=== PATIENT | male | born 1960 | race Caucasian/White ===

== ENCOUNTER 2016-07-31 04:54 | Observation (INO) | payer BC, OTHER ==
[2016-07-31] MEDS ORDERED: SODIUM CHLORIDE 0.9% 1,000 ML IV STA (04:59)
[2016-07-31] MEDS ORDERED: ALBUTEROL NEB (CONC) 2.5 MG/0.5 ML INHALATION STA ×2 (05:07→05:12)
[2016-07-31] MEDS ORDERED: IPRATROPIUM 0.5 MG/2.5 ML NEBU INHALATION STA (05:07)
[2016-07-31] MEDS ORDERED: methylPREDNISolone SOD SUCCI 125 MG/2 ML VIAL IV STA (05:09)
--- NOTE | 2016-07-31 05:09 | ED ---
General Adult HPI - General Chief complaint: Shortness of Breath Stated complaint: SOB Time Seen by Provider: 07/31/16 04:59 Source: patient, RN notes reviewed, old records reviewed Mode of arrival: ambulatory Limitations: no limitations - History of Present Illness Initial comments: This is a 36-year-old male here for evaluation of severe shortness of breath, 2 days of worsening shortness breath cough and congestion. Patient does have are from asthma COPD and continued to smoke. No known fevers, no chest pain, increasing cough increasing congestion. Again patient had a recent osculation allows last year for similar symptoms, COPD. Patient is not followed along doctor, takes no home medications. - Related Data Home Medications Medication Instructions Recorded Confirmed No Known Home Medications [No 07/31/16 07/31/16 Known Home Medications] Allergies Allergy/AdvReac Type Severity Reaction Status Date / Time No Known Allergies Allergy Verified 04/04/14 20:46 Review of Systems ROS Statement: Those systems with pertinent positive or pertinent negative responses have been documented in the HPI. ROS Other: All systems not noted in ROS Statement are negative. Past Medical History Additional Past Medical History / Comment(s): gout History of Any Multi-Drug Resistant Organisms: None Reported Past Surgical History: Orthopedic Surgery Additional Past Surgical History / Comment(s): left hand tendon surgery Past Anesthesia/Blood Transfusion Reactions: No Reported Reaction Past Psychological History: No Psychological Hx Reported Smoking Status: Heavy tobacco smoker Past Alcohol Use History: Unable to Obtain, Daily Past Drug Use History: Marijuana General Exam Limitations: no limitations General appearance: alert, in no apparent distress, anxious Head exam: Present: atraumatic, normocephalic, normal inspection Eye exam: Present: normal appearance, PERRL, EOMI. Absent: scleral icterus, conjunctival injection, periorbital swelling ENT exam: Present: normal exam, mucous membranes moist Neck exam: Present: normal inspection. Absent: tenderness, meningismus, lymphadenopathy Respiratory exam: Present: normal lung sounds bilaterally, respiratory distress , wheezes, accessory muscle use, prolonged expiratory. Absent: rales, rhonchi, stridor Cardiovascular Exam: Present: regular rate, normal rhythm, normal heart sounds. Absent: systolic murmur, diastolic murmur, rubs, gallop, clicks GI/Abdominal exam: Present: soft, normal bowel sounds. Absent: distended, tenderness, guarding, rebound, rigid Extremities exam: Present: normal inspection, full ROM, normal capillary refill. Absent: tenderness, pedal edema, joint swelling, calf tenderness Back exam: Present: normal inspection Neurological exam: Present: alert, oriented X3, CN II-XII intact Psychiatric exam: Present: normal affect, normal mood Skin exam: Present: warm, dry, intact, normal color. Absent: rash Course Vital Signs 07/31/16 07/31/16 07/31/16 04:58 05:17 05:28 Temperature 97.2 F L Pulse Rate 98 90 96 Respiratory 22 Rate Blood Pressure 138/71 O2 Sat by Pulse 97 Oximetry 07/31/16 06:58 Temperature Pulse Rate 94 Respiratory 18 Rate Blood Pressure 135/73 O2 Sat by Pulse 93 L Oximetry - Reevaluation(s) Reevaluation #1: 07/31/16 05:08 Patient is not on home O2 and is profoundly hypoxic on room air oxygen and 83% after initial breathing treatment Reevaluation #2: 07/31/16 07:04 Patient still with some clear shortness of breath Medical Decision Making - Medical Decision Making 56 male to the ER for reevaluation cough congestion shortness of breath, not on home O2 and oxygen 8% on room air. Patient does continue to smoke, will admit for IV hydration, steroids and breathing treatments. Monitoring of pulse ox and rest for a status - Lab Data Result diagrams: 07/31/16 05:00 07/31/16 05:00 Lab Results 07/31/16 07/31/16 07/31/16 Range/Units 05:00 05:00 05:00 WBC 13.2 H (3.8-10.6) k/uL RBC 4.67 (4.30-5.90) m/uL Hgb 14.4 (13.0-17.5) gm/dL Hct 43.9 (39.0-53.0) % MCV 94.0 (80.0-100.0) fL MCH 30.9 (25.0-35.0) pg MCHC 32.9 (31.0-37.0) g/dL RDW 12.7 (11.5-15.5) % Plt Count 485 H (150-450) k/uL Neutrophils % 70 % Lymphocytes % 18 % Monocytes % 7 % Eosinophils % 1 % Basophils % 0 % Neutrophils # 9.2 H (1.3-7.7) k/uL Lymphocytes # 2.4 (1.0-4.8) k/uL Monocytes # 1.0 (0-1.0) k/uL Eosinophils # 0.1 (0-0.7) k/uL Basophils # 0.1 (0-0.2) k/uL PT (9.0-12.0) sec INR (<1.1) APTT (22.0-30.0) sec Sodium 142 (137-145) mmol/L Potassium 4.3 (3.5-5.1) mmol/L Chloride 98 (98-107) mmol/L Carbon Dioxide 32 H (22-30) mmol/L Anion Gap 12 mmol/L BUN 7 L (9-20) mg/dL Creatinine 0.66 (0.66-1.25) mg/dL Est GFR (MDRD) Af Amer >60 (>60 ml/min/1.73 sqM) Est GFR (MDRD) Non-Af >60 (>60 ml/min/1.73 sqM) Glucose 113 H (74-99) mg/dL Calcium 9.1 (8.4-10.2) mg/dL Magnesium 2.0 (1.6-2.3) mg/dL Total Bilirubin 0.7 (0.2-1.3) mg/dL AST 19 (17-59) U/L ALT 29 (21-72) U/L Alkaline Phosphatase 52 (38-126) U/L Total Creatine Kinase 32 L (55-170) U/L CK-MB (CK-2) <0.2 (0.0-2.4) ng/mL CK-MB (CK-2) Rel Index Troponin I <0.012 (0.000-0.034) ng/mL NT-Pro-B Natriuret Pep pg/mL Total Protein 7.2 (6.3-8.2) g/dL Albumin 3.9 (3.5-5.0) g/dL 07/31/16 07/31/16 Range/Units 05:00 05:00 WBC (3.8-10.6) k/uL RBC (4.30-5.90) m/uL Hgb (13.0-17.5) gm/dL Hct (39.0-53.0) % MCV (80.0-100.0) fL MCH (25.0-35.0) pg MCHC (31.0-37.0) g/dL RDW (11.5-15.5) % Plt Count (150-450) k/uL Neutrophils % % Lymphocytes % % Monocytes % % Eosinophils % % Basophils % % Neutrophils # (1.3-7.7) k/uL Lymphocytes # (1.0-4.8) k/uL Monocytes # (0-1.0) k/uL Eosinophils # (0-0.7) k/uL Basophils # (0-0.2) k/uL PT 11.7 (9.0-12.0) sec INR 1.2 (<1.1) APTT 27.2 (22.0-30.0) sec Sodium (137-145) mmol/L Potassium (3.5-5.1) mmol/L Chloride (98-107) mmol/L Carbon Dioxide (22-30) mmol/L Anion Gap mmol/L BUN (9-20) mg/dL Creatinine (0.66-1.25) mg/dL Est GFR (MDRD) Af Amer (>60 ml/min/1.73 sqM) Est GFR (MDRD) Non-Af (>60 ml/min/1.73 sqM) Glucose (74-99) mg/dL Calcium (8.4-10.2) mg/dL Magnesium (1.6-2.3) mg/dL Total Bilirubin (0.2-1.3) mg/dL AST (17-59) U/L ALT (21-72) U/L Alkaline Phosphatase (38-126) U/L Total Creatine Kinase (55-170) U/L CK-MB (CK-2) (0.0-2.4) ng/mL CK-MB (CK-2) Rel Index Troponin I (0.000-0.034) ng/mL NT-Pro-B Natriuret Pep 48 pg/mL Total Protein (6.3-8.2) g/dL Albumin (3.5-5.0) g/dL - Radiology Data Radiology results: report reviewed, image reviewed Critical Care Time Critical Care Time: Yes Total Critical Care Time: 31 Disposition Clinical Impression: Acute exacerbation of chronic obstructive airways disease, Hypoxemia, Respiratory distress, COPD exacerbation Disposition: ADMITTED IP TO THIS HOSP Condition: Serious Referrals: Frank Quarles MD [Primary Care Provider] - 1-2 days
[2016-07-31] MEDS ORDERED: IPRATROPIUM-ALBUTEROL 3 ML NEB INHALATION STA (05:12)
[2016-07-31 05:34] LABS: Basophils # (A) 0.1 k/uL (0-0.2); Basophils % (A) 0 %; CH 30.8; CHCM 32.9; Eosinophils # (A) 0.1 k/uL (0-0.7); Eosinophils % (A) 1 %; HCT 43.9 % (39.0-53.0); HGB 14.4 gm/dL (13.0-17.5); Luc # (Auto) 0.48; Luc % (Auto) 4; Lymphocytes # (A) 2.4 k/uL (1.0-4.8); Lymphocytes % (A) 18 %; MCH 30.9 pg (25.0-35.0); MCHC 32.9 g/dL (31.0-37.0); Mean Platelet Volume 8.1; Monocytes % (A) 7 %; Neutrophils # (A) 9.2 k/uL (1.3-7.7); Neutrophils % (A) 70 %; RBC 4.67 m/uL (4.30-5.90); RDW 12.7 % (11.5-15.5); WBC 13.2 k/uL (3.8-10.6); WBC (Perox) 12.76
[2016-07-31 05:45] LABS: INR 1.2 (<1.1); Partial Thromboplastin Time 27.2 sec (22.0-30.0); Prothrombin Time 11.7 sec (9.0-12.0)
[2016-07-31 05:47] LABS: ALT 29 U/L (21-72); AST 19 U/L (17-59); Alkaline Phosphatase 52 U/L (38-126); Anion Gap 12 mmol/L; Blood Urea Nitrogen 7 mg/dL (9-20); Calcium 9.1 mg/dL (8.4-10.2); Carbon Dioxide 32 mmol/L (22-30); Chloride 98 mmol/L (98-107); Glucose 113 mg/dL (74-99); Non-African American GFR(MDRD) >60 (>60 ml/min/1.73 sqM); Potassium 4.3 mmol/L (3.5-5.1); Sodium 142 mmol/L (137-145); Total Bilirubin 0.7 mg/dL (0.2-1.3); Total Protein 7.2 g/dL (6.3-8.2)
--- NOTE | 2016-07-31 05:51 | XR ---
EXAM: XR Chest, 2 Views. CLINICAL HISTORY: Reason: difficulty breathing TECHNIQUE: Frontal and lateral views of the chest. COMPARISON: 04/04/14 FINDINGS: Lungs: Unremarkable. No consolidation. Pleural space: Unremarkable. No pneumothorax. Heart: Unremarkable. No cardiomegaly. Mediastinum: Unremarkable. Bones/joints: Unremarkable. IMPRESSION: No acute findings or substantial change
[2016-07-31 05:57] LABS: Creatine Kinase 32 U/L (55-170)
[2016-07-31 06:08] LABS: Creatine Kinase MB <0.2 ng/mL (0.0-2.4); Troponin I <0.012 ng/mL (0.000-0.034)
[2016-07-31] MEDS ORDERED: AZITHROMYCIN 500 MG in SODIUM CHLORIDE 0.9% 250 ML IVPB STA (07:05)
[2016-07-31] MEDS: SODIUM CHLORIDE 0.9% 1,000 ML IV STA ×2 (08:05→08:57)
[2016-07-31] MEDS: IPRATROPIUM-ALBUTEROL 3 ML NEB INHALATION SCH ×4 (08:21→20:25)
[2016-07-31] MEDS: NICOTINE 21MG/24HR PATCH TRANSDERM SCH (11:46)
[2016-07-31] MEDS ORDERED: methylPREDNISolone SOD SUCCI 125 MG/2 ML VIAL IV SCH (12:00)
[2016-07-31 12:03] VITALS: BMI 28.0
[2016-07-31] MEDS: ENOXAPARIN 40 MG/0.4 ML SYRINGE SQ SCH (12:38)
[2016-07-31] MEDS ORDERED: ALBUTEROL NEBULIZED 7.5 MG, IPRATROPIUM NEBULIZED 0.5 MG, SODIUM CHLORIDE 0.9% NEBULIZ ... INHALATION PRN ×3 (14:11)
[2016-07-31] MEDS ORDERED: PANTOPRAZOLE 40 MG TABLET PO STA (17:52)
[2016-07-31 18:09] LABS: Hemoglobin A1C 6.8 % (4.2-6.1)
[2016-07-31] MEDS: PANTOPRAZOLE 40 MG/10 ML VIAL IVP SCH (18:19)
--- NOTE | 2016-07-31 18:32 | HP ---
DATE OF ADMISSION: 07/31/2016 CHIEF COMPLAINT: Difficulty breathing. HISTORY OF PRESENT ILLNESS: This is the first admission for this 56-year-old white male who has COPD. I have not seen him before, but he was scheduled to come into the office. He started to have more and more difficulty and had to come in. He is being treated for exacerbation of COPD. REVIEW OF SYSTEMS: He has had no headaches, neurologic problems, change in vision or hearing, cough, hemoptysis, heart disease, hypertension, palpitations, abdominal pain, nausea, vomiting, hematemesis, melena, hematochezia, jaundice, hematuria, frequency, urgency, arthralgias, diabetes, etc. Past medical history, family history, and personal and social histories are otherwise unremarkable and noncontributory. He is on no medications and he is NOT ALLERGIC TO ANY. Only surgery he has had was for an injury in his left hand. He smokes about a pack cigarettes a day. PHYSICAL EXAM: Blood pressure is 135/90 with a pulse of 91, respirations of 35, and he is afebrile. In general he appeared to be very short of breath. Skin color was poor and lymph nodes were not enlarged. Head, ears, eyes, nose, mouth and throat were normal. Chest demonstrated increased AP diameter with poor breath sounds heard throughout. There are rales and rhonchi scattered throughout and he had wheezing on inspiration and expiration. Cardiac exam demonstrated sinus tachycardia. No murmurs or extra sounds. ABDOMEN: Soft, nontender, without visceromegaly or masses. Bowel sounds are present. Extremities are normal. Neurologically he is intact. IMPRESSION: Exacerbation of chronic obstructive pulmonary disease. PLAN: 1. Bed rest. 2. IV fluids. 3. IV and inhaled steroids. 4. Updrafts.
[2016-07-31] MEDS: BUDESONIDE 0.5 MG/2 ML NEBU INHALATION SCH (20:25)
[2016-07-31] MEDS: methylPREDNISolone SOD SUCCI 40 MG/ML 1 ML VIAL IV SCH (21:18)
[2016-07-31 23:46] LABS: Glucose,Whole Blood 281 mg/dL (75-99)
[2016-08-01] MEDS: IBUPROFEN 800 MG TAB PO PRN ×2 (06:19→19:01)
[2016-08-01] MEDS: IPRATROPIUM-ALBUTEROL 3 ML NEB INHALATION SCH ×4 (07:19→20:29)
[2016-08-01] MEDS: BUDESONIDE 0.5 MG/2 ML NEBU INHALATION SCH ×2 (07:19→20:29)
[2016-08-01] MEDS: ENOXAPARIN 40 MG/0.4 ML SYRINGE SQ SCH (07:46)
[2016-08-01] MEDS: methylPREDNISolone SOD SUCCI 40 MG/ML 1 ML VIAL IV SCH ×3 (07:46→23:20)
[2016-08-01] MEDS: PANTOPRAZOLE 40 MG/10 ML VIAL IVP SCH (07:47)
[2016-08-01] MEDS: NICOTINE 21MG/24HR PATCH TRANSDERM SCH (07:47)
[2016-08-01 07:59] LABS: Glucose,Whole Blood 177 mg/dL (75-99)
[2016-08-01] MEDS ORDERED: AZITHROMYCIN 500 MG in SODIUM CHLORIDE 0.9% 250 ML IVPB SCH (09:00)
[2016-08-01 11:53] LABS: Glucose,Whole Blood 243 mg/dL (75-99)
--- NOTE | 2016-08-01 14:06 | P.PN ---
Subjective 56-year-old male being seen on rounds with the attending this morning who reports breathing feels slightly improved. Patient's initial presentation to the emergency room on July 31 to be evaluated for chief complaint of developing severe shortness of breath today due to duration. Patient stated that with the activity felt short of breath. [place] audibly congested. Patient states he does have a history of asthma and COPD. Does use a nebulizer to try to use the nebulizer and an updraft did not note improvement. Patient does have a history of nicotine dependency. Patient was seen in the emergency room with a febrile temp is 97.2. Patient is not on any home O2. But the pulse ox sat on room air in the emergency room was 83% after giving a initial respiratory treatment. Patient was admitted with IV hydration started on IV steroids and respiratory updraft treatments the white count was elevated to 13.2. Chest x-ray in the emergency room showed no acute findings. Objective - Vital Signs Vital signs: Vital Signs Temp 97.5 F L 08/01/16 07:00 Pulse 100 08/01/16 11:42 Resp 18 08/01/16 11:42 BP 130/72 08/01/16 07:00 Pulse Ox 97 08/01/16 07:00 Intake & Output 07/31/16 08/01/16 08/01/16 18:59 06:59 18:59 Intake Total 586 1372 Balance 586 1372 Weight 86.183 kg 86.183 kg Intake: Intake, IV Titration 586 1150 Amount Azithromycin 500 mg In 586 Sodium Chloride 0.9% 250 ml @ 125 mls/hr IVPB DAILY CHERRY Rx#:[id number] Sodium Chloride 0.9% 1, 1150 000 ml @ 100 mls/hr IV . Q10H STA Rx#:[id number] Oral 222 Other: Voiding Method Toilet Toilet Toilet # Voids 2 1 1 # Bowel Movements 0 0 - Exam Physical exam 56-year-old male looking older than stated age sitting up in bed states breathing feels slightly improved but continues to feel short of breath with activity no cough noted oriented 3 Lungs posterior diminished at the bases coarse rhonchi throughout nasal cannula on 4 L sats are 92% no cough noted Heart S1-S2 audible and regular Abdomen soft nontender no nausea no vomiting no reports of esophageal reflex not distended bowel tones present extremities no edema noted - Labs CBC & Chem 7: 07/31/16 05:00 07/31/16 05:00 Labs: Abnormal Lab Results - Last 24 Hours (Table) 07/31/16 07/31/16 08/01/16 Range/Units 14:09 23:42 07:57 POC Glucose (mg/dL) 281 H 177 H (75-99) mg/dL Hemoglobin A1c 6.8 H (4.2-6.1) % 08/01/16 Range/Units 11:49 POC Glucose (mg/dL) 243 H (75-99) mg/dL Hemoglobin A1c (4.2-6.1) % Assessment and Plan Plan: Impression Present on admission shortness of breath with acute hypoxic respiratory failure on room air sats 80% Chronic nicotine dependency 1 pack daily greater than a 40 year history Present on admission shortness of breath due to an acute exacerbation of COPD with tracheal bronchitis Present on admission leukocytosis likely reactive Hyperglycemic episodes suspect steroid related Present on admission chest x-ray no acute findings Plan Continue current respiratory treatments as ordered Jaronulair as ordered DVT and GI prophylaxis Home O2 eval Tapered steroids Further recommendations pending will follow The above dictated assessment and findings were discussed with dr crockett . Impression and the plan of care have been dictated as directed. Mila Mcnulty nurse practitioner acting as a scribe for dr crockett
[2016-08-01 17:34] LABS: Glucose,Whole Blood 263 mg/dL (75-99)
[2016-08-01] MEDS: INSULIN LISPRO (humaLOG) 300 UNIT/3 ML VIAL SQ SCH ×2 (18:02→20:49)
[2016-08-01 20:36] LABS: Glucose,Whole Blood 146 mg/dL (75-99)
--- NOTE | 2016-08-01 22:54 | PN ---
CHIEF COMPLAINT: Exacerbation of chronic obstructive pulmonary disease. HISTORY OF PRESENT ILLNESS: The gentleman is doing well and he has had no new problems except for complaint of back pian. Breathing is much improved. PHYSICAL EXAMINATION: Chest is much more clear. He still has occasional scattered rales and rhonchi, but essentially he is clear. CARDIAC: Normal. ABDOMEN: Soft, nontender. IMPRESSION: 1. Exacerbation of chronic obstructive pulmonary disease. 2. Low back pain. PLAN: 1. Motrin for the back. 2. Continue on current treatment and possibly home tomorrow.
[2016-08-02 07:26] LABS: Glucose,Whole Blood 226 mg/dL (75-99)
[2016-08-02] MEDS ORDERED: PANTOPRAZOLE 40 MG TABLET PO SCH (07:30)
[2016-08-02] MEDS: NICOTINE 21MG/24HR PATCH TRANSDERM SCH (07:31)
[2016-08-02] MEDS: INSULIN LISPRO (humaLOG) 300 UNIT/3 ML VIAL SQ SCH (07:31)
[2016-08-02] MEDS: ENOXAPARIN 40 MG/0.4 ML SYRINGE SQ SCH (07:32)
[2016-08-02] MEDS: IPRATROPIUM-ALBUTEROL 3 ML NEB INHALATION SCH ×2 (07:32→11:21)
[2016-08-02] MEDS: BUDESONIDE 0.5 MG/2 ML NEBU INHALATION SCH (07:32)
[2016-08-02] MEDS: methylPREDNISolone SOD SUCCI 40 MG/ML 1 ML VIAL IV SCH (07:33)
[2016-08-02 07:40] VITALS: BP 168/88; TEMP 98.2
[2016-08-02] MEDS: IBUPROFEN 800 MG TAB PO PRN (07:47)
[2016-08-02] MEDS ORDERED: AZITHROMYCIN 500 MG TAB PO SCH (09:00)
[2016-08-02 09:40] VITALS: RESP 20
--- NOTE | 2016-08-02 09:43 | P.DS ---
Providers Date of admission: 07/31/16 05:09 Expected date of discharge: 08/02/16 Attending physician: Frank Crockett Primary care physician: Frank Crockett [facility] Course: Patient's initial presentation to the emergency room on July 31 to be evaluated for chief complaint of developing severe shortness of breath today due to duration. Patient stated that with the activity felt short of breath. [place] audibly congested. Patient states he does have a history of asthma and COPD. Does use a nebulizer to try to use the nebulizer and an updraft did not note improvement. Patient does have a history of nicotine dependency. Patient was seen in the emergency room with a febrile temp is 97.2. Patient is not on any home O2. But the pulse ox sat on room air in the emergency room was 83% after giving a initial respiratory treatment. Patient was admitted with IV hydration started on IV steroids and respiratory updraft treatments the white count was elevated to 13.2. Chest x-ray in the emergency room showed no acute findings. Impression Present on admission shortness of breath with acute hypoxic respiratory failure on room air sats 80% Chronic nicotine dependency 1 pack daily greater than a 40 year history Present on admission shortness of breath due to an acute exacerbation of COPD with tracheal bronchitis Present on admission leukocytosis likely reactive Hyperglycemic episodes suspect steroid related Present on admission chest x-ray no acute findings The above dictated assessment and findings were discussed with dr crockett . Impression and the plan of care have been dictated as directed. Mila Mcnulty nurse practitioner acting as a scribe for dr crockett Patient Condition at Discharge: Serious Plan - Discharge Summary New Discharge Prescriptions: Azithromycin [Zithromax] 500 mg PO DAILY #7 tab Budesonide-Formot 160-4.5 Mcg [Symbicort 160-4.5 Mcg Inhaler] 2 puff INHALATION BID #1 inhaler Ipratropium-Albuterol Nebulize [Duoneb 0.5 mg-3 mg/3 ml Soln] 3 ml INHALATION RT -QID #120 ampul.neb Nicotine 21Mg/24Hr Patch [Habitrol] 1 patch TRANSDERM DAILY #30 patch methylPREDNISolone Dose Pack [Medrol Dose Pack] 4 mg PO DIRECTED #21 package Discharge Medication List Cpm/PE/Dm/Acetaminophen/Guaifn [Tylenol Cold-Flu Day-Nt Caplet] 1 tab PO Q4H PRN 07/31/16 [History] Azithromycin [Zithromax] 500 mg PO DAILY #7 tab 08/02/16 [Rx] Budesonide-Formot 160-4.5 Mcg [Symbicort 160-4.5 Mcg Inhaler] 2 puff INHALATION BID #1 inhaler 08/02/16 [Rx] Ipratropium Nebulized [Atrovent Nebulized] 0.5 mg INHALATION RT-QID PRN #0 nebu 08/02/16 [Rx] Ipratropium-Albuterol Nebulize [Duoneb 0.5 mg-3 mg/3 ml Soln] 3 ml INHALATION RT -QID #120 ampul.neb 08/02/16 [Rx] Nicotine 21Mg/24Hr Patch [Habitrol] 1 patch TRANSDERM DAILY #30 patch 08/02/16 [ Rx] methylPREDNISolone Dose Pack [Medrol Dose Pack] 4 mg PO DIRECTED #21 package 08/02/16 [Rx] Follow up Appointment(s)/Referral(s): Frank Crockett MD [Primary Care Provider] - 08/09/16 3:10 pm Patient Instructions/Handouts: COPD (Chronic Obstructive Pulmonary Disease) (DC ), Hypoxemia (DC) Activity/Diet/Wound Care/Special Instructions: provide patient with smoking cessation Discharge Disposition: HOME SELF-CARE
[2016-08-02 11:43] VITALS: PULSE 90
[2016-08-02 11:53] LABS: Glucose,Whole Blood 163 mg/dL (75-99)
--- NOTE | 2016-08-02 15:48 | PN ---
DATE OF SERVICE: 08/02/2016 CHIEF COMPLAINT: Acute respiratory failure. HISTORY OF PRESENT ILLNESS: This gentleman is doing well, but he is improved. He thinks he can go home. PHYSICAL EXAMINATION: CHEST: Clear. CARDIAC: Normal. ABDOMEN: Soft, nontender. IMPRESSION: Exacerbation of chronic obstructive pulmonary disease. PLAN: Home today and this will be arranged by the nurse practitioner.
== END 2016-08-02 12:59 | disposition home or self-care (01) ==
LOC: EC 04:54 → SUPCPDRO 04:54 → INTOOBSV 05:09 → 5MS5E 05:09
PROVIDERS: ADMIT Family Medicine; ATTEND Family Medicine
DX: J96.01 Acute respiratory failure with hypoxia (principal); J44.1 Chronic obstructive pulmonary disease with (acute) exacerbation; J45.909 Unspecified asthma, uncomplicated; F17.200 Nicotine dependence, unspecified, uncomplicated; M10.9 Gout, unspecified; D72.829 Elevated white blood cell count, unspecified; R73.9 Hyperglycemia, unspecified; T38.0X5A Adverse effect of glucocorticoids and synthetic analogues, initial encounter; M54.5 Low back pain
CPT/HCPCS: 99291; 96374; 96375; 96361; 36415; 94640 ×6; 83880; 80053; 83036; 82550; 82553; 83735; 84484; 85025; 85610; 85730; 87040; 71020; G0378 ×3; S4990 ×3; J2920 ×3; J2930; J0456 ×2; J1650 ×3; C9113 ×2; 96366; 96372; 96376

== ENCOUNTER 2016-09-26 05:52 | Emergency (ER) | payer OTHER ==
[2016-09-26 05:57] VITALS: RESP 18
[2016-09-26] MEDS ORDERED: KETOROLAC 60 MG/2 ML VIAL IM STA (06:06)
--- NOTE | 2016-09-26 06:08 | ED ---
General Adult HPI - General Chief complaint: Extremity Injury, Lower Stated complaint: Leg Pain/Dizziness Time Seen by Provider: 09/26/16 06:00 Source: patient, RN notes reviewed Mode of arrival: ambulatory Limitations: no limitations - History of Present Illness Initial comments: This is a 56-year-old male who presents emergency Department with lower back pain. Patient states his been ongoing for a month it has been radiating down his left leg. Patient states tonight the pain got worse so he decided come to the emergency department. Patient states he hasn't had no recent injury or trauma. Patient denies any numbness or weakness. Patient denies any difficulty urinating or urinary incontinence. Patient has full range of motion of his lower extremities. - Related Data Home Medications Medication Instructions Recorded Confirmed HYDROcodone/APAP 10-325MG [Randolph 1 tab PO Q6H PRN 09/26/16 09/26/16 10-325] Previous Rx's Medication Instructions Recorded Hydrocodone/Acetaminophen [Randolph 1 each PO Q4HR PRN #20 tab 09/26/16 5-325] predniSONE 40 mg PO DAILY #8 tab 09/26/16 Allergies Allergy/AdvReac Type Severity Reaction Status Date / Time No Known Allergies Allergy Verified 07/31/16 07:14 Review of Systems ROS Statement: Those systems with pertinent positive or pertinent negative responses have been documented in the HPI. ROS Other: All systems not noted in ROS Statement are negative. Past Medical History Past Medical History: Asthma, COPD Additional Past Medical History / Comment(s): Past bilateral feet-gout. History of Any Multi-Drug Resistant Organisms: None Reported Past Surgical History: Orthopedic Surgery, Tonsillectomy Additional Past Surgical History / Comment(s): left hand tendon surgery Past Anesthesia/Blood Transfusion Reactions: No Reported Reaction Past Psychological History: No Psychological Hx Reported Additional Psychological History / Comment(s): Pt resides with his spouse. He uses no assistive device. He drives. Smoking Status: Current every day smoker Past Alcohol Use History: Daily, Heavy Additional Past Alcohol Use History / Comment(s): Pt states he started smoking in 1979 and is less than a ppd smoker. He states he used to drink 6-7 liquor beverages a day and quit drinking 3-4 months ago. Past Drug Use History: Marijuana Additional Drug Use History / Comment(s): Pt states he smokes marijuana occasionally. - Past Family History Father Family Medical History: No Reported History Additional Family Medical History / Comment(s): Father is alive and in his 70's Mother Family Medical History: Pneumonia Additional Family Medical History / Comment(s): Mother of pneumonia at the age of 52yrs. General Exam - General Exam Comments Initial Comments: GENERAL Patient is well-developed and well-nourished. Patient is in mild distress. EYES Patient's pupils are equal and round. Extraocular motion is intact SKIN Unremarkable NEURO The patient is alert and oriented 3. Patient has full range of motion of all 4 extremities. Patient has a negative straight leg test bilaterally. Patient has normal sensation in the perineum. PYSCH Patient has normal interpersonal interactions. MUSCULOSKELETAL Patient has minimal lower left sided tenderness on palpation. Limitations: no limitations Course Vital Signs 09/26/16 05:56 Temperature 97.4 F L Pulse Rate 78 Respiratory 18 Rate Blood Pressure 221/93 O2 Sat by Pulse 96 Oximetry Medical Decision Making - Medical Decision Making Lumbosacral spine negative for any acute injury Disposition Clinical Impression: Sciatica Disposition: HOME SELF-CARE Instructions: Sciatica (ED) Prescriptions: Hydrocodone/Acetaminophen [Randolph 5-325] 1 each PO Q4HR PRN #20 tab PRN Reason: Pain predniSONE 40 mg PO DAILY #8 tab Referrals: None,Stated [Primary Care Provider] - 1-2 days
--- NOTE | 2016-09-26 06:41 | XR ---
EXAM: XR Lumbar Spine, 4 or 5 Views. CLINICAL HISTORY: Reason: Pain TECHNIQUE: Frontal, lateral and oblique views of the lumbar spine. COMPARISON: No relevant prior studies available. FINDINGS: Vertebrae: No evidence of acute fracture or malalignment. Lumbar vertebral body heights are preserved. Mild physiologic wedging of lower thoracic vertebral bodies. Disc spaces/neural foramina: Disc spaces are preserved. Soft tissues: Prominent atherosclerotic calcification of the abdominal aorta. IMPRESSION: No evidence of fracture or malalignment.
[2016-09-26] MEDS ORDERED: HYDROmorphone 1 MG/ML 1 ML SYRINGE IM STA (06:50)
[2016-09-26 07:27] VITALS: BP 166/95; PULSE 72; TEMP 98.2
== END 2016-09-26 07:51 | disposition home or self-care (01) ==
LOC: EC 05:52
DX: M54.30 Sciatica, unspecified side (principal); F17.200 Nicotine dependence, unspecified, uncomplicated
CPT/HCPCS: 72110; 99283; 96372 ×2; J1885; J1170

== ENCOUNTER 2017-10-16 07:14 | Emergency (ER) | payer OTHER ==
[2017-10-16 07:20] VITALS: BP 200/100; PULSE 116; RESP 20; TEMP 98.2
[2017-10-16] MEDS ORDERED: KETOROLAC 60 MG/2 ML VIAL IM STA (07:52)
--- NOTE | 2017-10-16 07:56 | ED ---
General Adult HPI - General Chief complaint: Extremity Injury, Lower Stated complaint: rt foot pain Time Seen by Provider: 10/16/17 07:40 Source: patient, RN notes reviewed Mode of arrival: ambulatory Limitations: no limitations - History of Present Illness Initial comments: Patient is a pleasant 57-year-old male presenting to the emergency Department with complaints of right foot pain. Onset of symptoms was a couple of days ago. Symptoms have progressed. Symptoms are greatly increased with any movement. No fever. Patient does have a history of similar symptoms previously associated with gout. - Related Data Previous Rx's Medication Instructions Recorded Indomethacin [Indocin] 50 mg PO TID PRN #20 capsule 10/16/17 Allergies Allergy/AdvReac Type Severity Reaction Status Date / Time No Known Allergies Allergy Verified 10/16/17 07:53 Review of Systems ROS Statement: Those systems with pertinent positive or pertinent negative responses have been documented in the HPI. ROS Other: All systems not noted in ROS Statement are negative. Constitutional: Denies: fever, chills Eyes: Denies: eye pain ENT: Denies: ear pain Respiratory: Denies: cough Cardiovascular: Denies: chest pain Endocrine: Denies: fatigue Gastrointestinal: Denies: abdominal pain Genitourinary: Denies: dysuria Musculoskeletal: Denies: back pain Skin: Denies: lesions Past Medical History Past Medical History: Asthma, COPD Additional Past Medical History / Comment(s): Past bilateral feet-gout. History of Any Multi-Drug Resistant Organisms: None Reported Past Surgical History: Orthopedic Surgery, Tonsillectomy Additional Past Surgical History / Comment(s): left hand tendon surgery Past Anesthesia/Blood Transfusion Reactions: No Reported Reaction Past Psychological History: No Psychological Hx Reported Smoking Status: Current every day smoker Past Alcohol Use History: Daily, Heavy Past Drug Use History: Marijuana - Past Family History Father Family Medical History: No Reported History Additional Family Medical History / Comment(s): Father is alive and in his 70's Mother Family Medical History: Pneumonia Additional Family Medical History / Comment(s): Mother of pneumonia at the age of 52yrs. General Exam Limitations: no limitations General appearance: alert, in no apparent distress Head exam: Present: atraumatic Eye exam: Present: normal appearance Neck exam: Present: normal inspection Respiratory exam: Present: normal lung sounds bilaterally Cardiovascular Exam: Present: regular rate, normal rhythm GI/Abdominal exam: Present: soft. Absent: tenderness Extremities exam: Present: other (Right foot with mild warmth and erythema and moderate tenderness of the right first MCP. There is also involvement near the third through fifth proximal phalanx including warmth and erythema and tenderness. Discomfort with range of motion.) Neurological exam: Present: alert Psychiatric exam: Present: normal affect, normal mood Skin exam: Present: erythema Course Vital Signs 10/16/17 07:18 Temperature 98.2 F Pulse Rate 116 H Respiratory 20 Rate Blood Pressure 200/100 O2 Sat by Pulse 99 Oximetry Medical Decision Making - Medical Decision Making Patient does have clinical picture most consistent with gout. No fever. Patient does have a history of gout as well. Patient is advised to have close follow-up as well as keep an eye on the area for possible infection secondary to somewhat atypical presentation based on location. It is felt this is likely still related to gout clinical presentation. - Radiology Data Radiology results: image reviewed (Foot x-ray shows no acute process) Disposition Clinical Impression: Acute gouty arthritis Disposition: HOME SELF-CARE Condition: Stable Instructions: Gout (ED) Additional Instructions: Please follow-up with primary care physician in the next day or 2 for recheck. Return for fevers, increased pain, swelling, increased redness, worsening symptoms or any other concerns. Prescriptions: Indomethacin [Indocin] 50 mg PO TID PRN #20 capsule PRN Reason: Pain Is patient prescribed a controlled substance at d/c from ED?: No Referrals: Kay Arboleda MD [STAFF PHYSICIAN] - 1-2 days Time of Disposition: 08:38
--- NOTE | 2017-10-16 08:24 | XR ---
EXAMINATION TYPE: XR foot complete RT DATE OF EXAM: 10/16/2017 CLINICAL HISTORY: History of gout with right foot pain TECHNIQUE: Frontal, lateral, and oblique images of the right foot are obtained. COMPARISON: None FINDINGS: There is no acute fracture/dislocation evident in the right foot. There is mild joint spac e loss at first metatarsal-phalangeal joint. Some flexion in the toes is present. The overlying soft tissue appears unremarkable. IMPRESSION: There is no acute fracture or dislocation in the right foot.
== END 2017-10-16 08:43 | disposition home or self-care (01) ==
LOC: EC 07:14
DX: M10.071 Idiopathic gout, right ankle and foot (principal); F17.200 Nicotine dependence, unspecified, uncomplicated
CPT/HCPCS: 73630; 99283; 96372; J1885

== ENCOUNTER 2018-12-22 16:26 | Inpatient (IN) | payer OTHER ==
[2018-12-22] MEDS ORDERED: FUROSEMIDE 10 MG/ML 4 ML VIAL IV STA (17:14)
[2018-12-22] MEDS ORDERED: LORazepam 2 MG/ML INJ IV STA (17:14)
--- NOTE | 2018-12-22 17:42 | ED ---
General Adult HPI - General Chief complaint: Shortness of Breath Stated complaint: Sob/abn ekg Time Seen by Provider: 12/22/18 16:30 Source: patient, RN notes reviewed Mode of arrival: wheelchair Limitations: physical limitation - History of Present Illness Initial comments: This is a 58-year-old male with past medical history significant for COPD and c ongestive heart failure. Patient comes in today because he been having more more difficulty breathing over the last few months. Patient states he saw his doctor today and the doctor sent him over here to be evaluated. Patient denies any chest pain or palpitations. Patient denies any recent fever chills or cough. Patient states he has noticed more edema to both of his legs. Patient denies any Pain. Patient denies any abdominal pain patient denies nausea vomiting diarrhea. Patient denies any lightheadedness dizziness or near syncopal episode. - Related Data Home Medications Medication Instructions Recorded Confirmed Ibuprofen [Motrin Ib] 400 mg PO Q6H PRN 12/22/18 12/22/18 Allergies Allergy/AdvReac Type Severity Reaction Status Date / Time No Known Allergies Allergy Verified 12/22/18 16:58 Review of Systems ROS Statement: Those systems with pertinent positive or pertinent negative responses have been documented in the HPI. ROS Other: All systems not noted in ROS Statement are negative. Past Medical History Past Medical History: Asthma, COPD Additional Past Medical History / Comment(s): Past bilateral feet-gout. History of Any Multi-Drug Resistant Organisms: None Reported Past Surgical History: Orthopedic Surgery, Tonsillectomy Additional Past Surgical History / Comment(s): left hand tendon surgery Past Anesthesia/Blood Transfusion Reactions: No Reported Reaction Past Psychological History: No Psychological Hx Reported Smoking Status: Current every day smoker Past Alcohol Use History: Daily, Heavy Past Drug Use History: Marijuana - Past Family History Father Family Medical History: No Reported History Additional Family Medical History / Comment(s): Father is alive and in his 70's Mother Family Medical History: Pneumonia Additional Family Medical History / Comment(s): Mother of pneumonia at the age of 52yrs. General Exam - General Exam Comments Initial Comments: GENERAL: Patient is well-developed and well-nourished. Patient is nontoxic and well- hydrated and is in no acute distress. ENT: Neck is soft and supple. No significant lymphadenopathy is noted. Oropharynx is clear. Moist mucous membranes. Neck has full range of motion without el iciting any pain. EYES: The sclera were anicteric and conjunctiva were pink and moist. Extraocular movements were intact and pupils were equal round and reactive to light. Eyelids were unremarkable. PULMONARY: Unlabored respirations. Good breath sounds bilaterally. No audible rales rhonchi or wheezing was noted. CARDIOVASCULAR: There is a regular rate and rhythm without any murmurs gallops or rubs. ABDOMEN: Soft and nontender with normal bowel sounds. SKIN: Skin is clear with no lesions or rashes and otherwise unremarkable. NEUROLOGIC: Patient is alert and oriented x3. Cranial nerves II through XII are grossly intact. Motor and sensory are also intact. Normal speech, volume and content. Symmetrical smile. MUSCULOSKELETAL: Normal extremities with adequate strength and full range of motion. 1+ edema LYMPHATICS: No significant lymphadenopathy is noted PSYCHIATRIC: Normal psychiatric evaluation. Limitations: physical limitation Course Vital Signs 12/22/18 12/22/18 12/22/18 16:29 16:43 16:44 Temperature 99.0 F Pulse Rate 86 96 Respiratory 26 H 16 18 Rate Blood Pressure 157/88 166/94 O2 Sat by Pulse 86 L 96 Oximetry 12/22/18 12/22/18 12/22/18 17:00 17:30 18:00 Temperature Pulse Rate 96 92 92 Respiratory 13 10 L 13 Rate Blood Pressure 166/94 157/101 168/90 O2 Sat by Pulse 97 97 96 Oximetry Medical Decision Making - Medical Decision Making EKG shows normal sinus rhythm at 96 bpm FL interval is 164 QRS is 86 QT interval 36 QTC is 487. Get inverted T waves in leads V1 and V2 V3 V4. Chest x-ray showed no acute abnormalities. Patient received 5 mg albuterol and Solu-Medrol. Patient improved slightly however I started the patient heparin because his troponin was elevated even though the patient was not having chest pain. Patient did have an elevated BNP but the x-ray did not show any signs of CHF. I spoke with Dr. Chapin agreed to admit the patient I admitted the patient wrote admitting orders. Consulted cardiology continued heparin and aspirin and Nitropaste on the floor - Lab Data Result diagrams: 12/22/18 17:32 12/22/18 17:32 Lab Results 08/20/19 08/20/19 08/20/19 Range/Units 17:32 17:32 17:32 WBC 9.2 (3.8-10.6) k/uL RBC 4.97 (4.30-5.90) m/uL Hgb 17.6 H (13.0-17.5) gm/dL Hct 52.6 (39.0-53.0) % MCV 105.9 H (80.0-100.0) fL MCH 35.4 H (25.0-35.0) pg MCHC 33.4 (31.0-37.0) g/dL RDW 14.2 (11.5-15.5) % Plt Count 175 (150-450) k/uL Neutrophils % 81 % Lymphocytes % 8 % Monocytes % 8 % Eosinophils % 1 % Basophils % 1 % Neutrophils # 7.4 (1.3-7.7) k/uL Lymphocytes # 0.7 L (1.0-4.8) k/uL Monocytes # 0.7 (0-1.0) k/uL Eosinophils # 0.1 (0-0.7) k/uL Basophils # 0.1 (0-0.2) k/uL Macrocytosis Moderate PT (9.0-12.0) sec INR (<1.2) APTT (22.0-30.0) sec Sodium 137 (137-145) mmol/L Potassium 4.0 (3.5-5.1) mmol/L Chloride 88 L (98-107) mmol/L Carbon Dioxide 41 H* (22-30) mmol/L Anion Gap 8 mmol/L BUN 9 (9-20) mg/dL Creatinine 0.58 L (0.66-1.25) mg/dL Est GFR (CKD-EPI)AfAm >90 (>60 ml/min/1.73 sqM) Est GFR (CKD-EPI)NonAf >90 (>60 ml/min/1.73 sqM) Glucose 128 H (74-99) mg/dL Calcium 9.1 (8.4-10.2) mg/dL Magnesium 1.6 (1.6-2.3) mg/dL Total Bilirubin 2.2 H (0.2-1.3) mg/dL AST 72 H (17-59) U/L ALT 54 (21-72) U/L Alkaline Phosphatase 71 (38-126) U/L Troponin I (0.000-0.034) ng/mL NT-Pro-B Natriuret Pep 1890 pg/mL Total Protein 6.6 (6.3-8.2) g/dL Albumin 3.9 (3.5-5.0) g/dL 12/22/18 12/22/18 Range/Units 17:32 17:32 WBC (3.8-10.6) k/uL RBC (4.30-5.90) m/uL Hgb (13.0-17.5) gm/dL Hct (39.0-53.0) % MCV (80.0-100.0) fL MCH (25.0-35.0) pg MCHC (31.0-37.0) g/dL RDW (11.5-15.5) % Plt Count (150-450) k/uL Neutrophils % % Lymphocytes % % Monocytes % % Eosinophils % % Basophils % % Neutrophils # (1.3-7.7) k/uL Lymphocytes # (1.0-4.8) k/uL Monocytes # (0-1.0) k/uL Eosinophils # (0-0.7) k/uL Basophils # (0-0.2) k/uL Macrocytosis PT 13.6 H (9.0-12.0) sec INR 1.3 H (<1.2) APTT 27.3 (22.0-30.0) sec Sodium (137-145) mmol/L Potassium (3.5-5.1) mmol/L Chloride (98-107) mmol/L Carbon Dioxide (22-30) mmol/L Anion Gap mmol/L BUN (9-20) mg/dL Creatinine (0.66-1.25) mg/dL Est GFR (CKD-EPI)AfAm (>60 ml/min/1.73 sqM) Est GFR (CKD-EPI)NonAf (>60 ml/min/1.73 sqM) Glucose (74-99) mg/dL Calcium (8.4-10.2) mg/dL Magnesium (1.6-2.3) mg/dL Total Bilirubin (0.2-1.3) mg/dL AST (17-59) U/L ALT (21-72) U/L Alkaline Phosphatase (38-126) U/L Troponin I 0.176 H* (0.000-0.034) ng/mL NT-Pro-B Natriuret Pep pg/mL Total Protein (6.3-8.2) g/dL Albumin (3.5-5.0) g/dL Critical Care Time Critical Care Time: Yes Total Critical Care Time: 35 Disposition Clinical Impression: COPD with acute exacerbation, Non-STEMI (non-ST elevated myocardial infarction) Disposition: ADMITTED IP TO THIS HOSP Referrals: Gabo Harris MD [Primary Care Provider] - 1-2 days Time of Disposition: 18:45
[2018-12-22 17:54] LABS: Basophils # (A) 0.1 k/uL (0-0.2); Basophils % (A) 1 %; Eosinophils # (A) 0.1 k/uL (0-0.7); Eosinophils % (A) 1 %; HCT 52.6 % (39.0-53.0); HGB 17.6 gm/dL (13.0-17.5); Lymphocytes # (A) 0.7 k/uL (1.0-4.8); Lymphocytes % (A) 8 %; MCH 35.4 pg (25.0-35.0); MCHC 33.4 g/dL (31.0-37.0); MCV 105.9 fL (80.0-100.0); Macrocytosis Moderate; Mean Platelet Volume 8.1; Monocytes # (A) 0.7 k/uL (0-1.0); Monocytes % (A) 8 %; Neutrophils # (A) 7.4 k/uL (1.3-7.7); Neutrophils % (A) 81 %; Platelet Count 175 k/uL (150-450); RBC 4.97 m/uL (4.30-5.90); RDW 14.2 % (11.5-15.5); WBC 9.2 k/uL (3.8-10.6)
[2018-12-22 18:00] LABS: ALT 54 U/L (21-72); AST 72 U/L (17-59); African American GFR (CKD) >90 (>60 ml/min/1.73 sqM); Albumin 3.9 g/dL (3.5-5.0); Alkaline Phosphatase 71 U/L (38-126); Blood Urea Nitrogen 9 mg/dL (9-20); Calcium 9.1 mg/dL (8.4-10.2); Chloride 88 mmol/L (98-107); Glucose 128 mg/dL (74-99); Magnesium 1.6 mg/dL (1.6-2.3); Sodium 137 mmol/L (137-145); Total Bilirubin 2.2 mg/dL (0.2-1.3); Total Protein 6.6 g/dL (6.3-8.2)
[2018-12-22 18:06] LABS: Anion Gap 8 mmol/L
--- NOTE | 2018-12-22 18:07 | XR ---
EXAMINATION: XR chest 2V DATE AND TIME: 12/22/2018 5:54 PM CLINICAL INDICATION: PHH; difficulty breathing TECHNIQUE: Departmental protocol COMPARISON: 07/31/2016; no prior CT. FINDINGS: The lungs are negative for pulmonary edema or atelectasis or evidence of pneumonia. However, there ar e a few scattered sub-cm nodular opacities seen on the frontal view, but not the lateral views. The pleural spaces are negative. The cardiac silhouette is not enlarged. The remainder of the mediastinal silhouette is unremarkable. The skeletal structures and soft tissues are negative for acute findings. IMPRESSION: 1) No acute cardiopulmonary/pleural process. 2) A few scattered sub-cm nodular opacities noted, likely granulomas, but three-month follow-up ches t CT without contrast advised to further characterize.
[2018-12-22 18:08] LABS: Carbon Dioxide 41 mmol/L (22-30)
[2018-12-22 18:25] LABS: INR 1.3 (<1.2); Partial Thromboplastin Time 27.3 sec (22.0-30.0); Prothrombin Time 13.6 sec (9.0-12.0)
[2018-12-22] MEDS ORDERED: ALBUTEROL NEBULIZED 5 MG, IPRATROPIUM NEBULIZED 0.5 MG, SODIUM CHLORIDE 0.9% NEBULIZ 9 ML INHALATION ONE ×3 (18:41)
[2018-12-22] MEDS ORDERED: methylPREDNISolone SOD SUCCI 125 MG/2 ML VIAL IV STA ×2 (18:41→18:52)
[2018-12-22] MEDS ORDERED: HEPARIN SODIUM,PORCINE 5,000 UNIT/ML 1 ML VIAL IV ONE (18:51)
[2018-12-22] MEDS ORDERED: ASPIRIN 81 MG PO STA (18:53)
[2018-12-22] MEDS: IPRATROPIUM-ALBUTEROL 3 ML NEB INHALATION PRN (19:10)
[2018-12-22] MEDS: HEPARIN SOD,PORK IN 0.45% NACL 25,000 UNIT in 0.45% NACL 1 250ML.BAG IV SCH (19:16)
[2018-12-22 21:03] LABS: Glucose,Whole Blood 151 mg/dL (75-99)
[2018-12-22] MEDS: INSULIN ASPART (NovoLOG) 100 UNIT/ML VIAL SQ SCH (21:03)
[2018-12-22] MEDS: KETOTIFEN 0.025% OPHTH DROPS 5 ML BTL BOTH EYES SCH (21:04)
[2018-12-22] MEDS ORDERED: ALPRAZolam 0.5 MG TAB PO PRN (21:48)
[2018-12-22] MEDS ORDERED: ACETAMINOPHEN TAB 500 MG TAB PO PRN (21:49)
[2018-12-22] MEDS: NICOTINE 21MG/24HR PATCH TRANSDERM SCH (22:34)
[2018-12-22] MEDS: methylPREDNISolone SOD SUCCI 125 MG/2 ML VIAL IV SCH (22:34)
[2018-12-22] MEDS: NITROGLYCERIN OINT 1 INCH/GM PACKET TOPICAL SCH (22:35)
[2018-12-23] MEDS: methylPREDNISolone SOD SUCCI 125 MG/2 ML VIAL IV SCH (04:37)
[2018-12-23] MEDS: NITROGLYCERIN OINT 1 INCH/GM PACKET TOPICAL SCH (04:38)
[2018-12-23 06:28] LABS: Glucose,Whole Blood 159 mg/dL (75-99)
[2018-12-23] MEDS: INSULIN ASPART (NovoLOG) 100 UNIT/ML VIAL SQ SCH ×4 (06:32→20:57)
--- NOTE | 2018-12-23 07:50 | P.CRDCN ---
History of Present Illness Consult date: 12/23/18 Requesting physician: Jorge Luis Busby Reason for Consult (text): AbNormal troponin Consult reason: congestive heart failure Chief complaint: Shortness of breath History of present illness: This is a 58-year-old gentleman with no documented history of hypert ension, nondiabetic, no hyperlipidemia, he smokes at least one pack of cigarettes per day and states that he drinks alcohol on a daily basis. He denies any emphysema, asthma, or COPD however the documentation in the medical record suggests that the patient has a history of COPD. He went to see his primary care doctor because of worsening and difficulty in breathing over the past one month or so, he was advised to come to the hospital for further evaluation and treatment. Patient denies any recent fever or chills, he does have a cough however he states is nonproductive. Patient also has noticed some mild swelling in his bilateral lower extremities. Chest x-ray on presentation here did not reveal any acute cardiopulmonary pleural process, a few scattered sub-nodular [place] were noted, likely granulomas, but a three-month follow-up CT has been recommended. EKG on presentation here shows a normal sinus rhythm, with anterior ST-T wave changes and small Q waves noted in the inferior leads. Blood pressure on arrival here 157/88 with a heart rate of 80, 86% on room air, temperature 99.0. This morning's blood pressure 125/70, heart rate in the 90s, temperature 98.6, 98% on 3 L of oxygen. White blood cell count 9.2, hemoglobin 17.6, platelet count 175. Sodium 137, potassium 4.0, BUN 9 and creatinine 0.5. BNP level 1890. Troponins 0.176, 0.148. At the time of my examination this morning, the patient is lying flat in bed, he denies any shortness of breath, he does have a congested cough this morning. Past Medical History Past Medical History: Asthma, COPD Additional Past Medical History / Comment(s): Past bilateral feet-gout. History of Any Multi-Drug Resistant Organisms: None Reported Past Surgical History: Orthopedic Surgery, Tonsillectomy Additional Past Surgical History / Comment(s): left hand tendon surgery Past Anesthesia/Blood Transfusion Reactions: No Reported Reaction Past Psychological History: No Psychological Hx Reported Additional Psychological History / Comment(s): Pt resides with his spouse. He uses no assistive device. He drives. Smoking Status: Current every day smoker Past Alcohol Use History: Daily, Heavy Additional Past Alcohol Use History / Comment(s): Pt states he started smoking in 1979 and is less than a ppd smoker. He states he used to drink 6-7 liquor beverages a day and quit drinking 3-4 months ago. Past Drug Use History: Marijuana Additional Drug Use History / Comment(s): Pt states he smokes marijuana occasionally. - Past Family History Father Family Medical History: No Reported History Additional Family Medical History / Comment(s): Father is alive and in his 70's Mother Family Medical History: Pneumonia Additional Family Medical History / Comment(s): Mother of pneumonia at the age of 52yrs. Medications and Allergies Home Medications Medication Instructions Recorded Confirmed Type Ibuprofen [Motrin Ib] 400 mg PO Q6H PRN 12/22/18 12/22/18 History Allergies Allergy/AdvReac Type Severity Reaction Status Date / Time No Known Allergies Allergy Verified 12/22/18 16:58 Physical Exam Vitals: Vital Signs Temp Pulse Pulse Resp BP BP Pulse Ox 12/23/18 03:12 98.6 F 96 18 125/72 98 12/22/18 22:58 95 18 115/53 97 12/22/18 19:24 93 18 12/22/18 19:18 99.3 F 96 20 155/91 98 12/22/18 19:13 93 18 12/22/18 19:08 99.6 F 100 18 171/83 89 L 12/22/18 18:00 92 13 168/90 96 12/22/18 17:30 92 10 L 157/101 97 12/22/18 17:00 96 13 166/94 97 12/22/18 16:44 18 12/22/18 16:43 96 16 166/94 96 12/22/18 16:29 99.0 F 86 26 H 157/88 86 L Intake and Output 12/22/18 12/23/18 12/23/18 22:59 06:59 14:59 Intake Total 58.854 Output Total 1400 Balance -1400 58.854 Intake: Intake, IV Titration 58.854 Amount Heparin Sod,Pork in 0.45% 58.854 NaCl 25,000 unit In 0.45 % NaCl 1 250ml.bag @ 12 UNITS/KG/HR 8.655 mls/hr IV .Q24H [facility] Rx#: [id number] Output: Urine 1400 Other: # Voids 1 Weight 72.121 kg 84.6 kg PHYSICAL EXAMINATION: GENERAL: 58-year-old gentleman in no acute distress at the time of my examination HEENT: Head is atraumatic, normocephalic. Pupils equal, round. Sclera anicteric. Conjunctiva are clear. Mucous membranes of the mouth are moist. Neck is supple. There is no elevated jugular venous pressure. No carotid bruit is heard. HEART EXAMINATION: Heart S1, S2 normal. No murmur or gallop heard. CHEST EXAMINATION: Lungs reveal scattered coarse rhonchi with decreased air exchange throughout. ABDOMEN: Soft, nontender. Bowel sounds are heard. No organomegaly noted. EXTREMITIES: 2+ peripheral pulses with trace evidence of peripheral edema and no calf tenderness noted]. NEUROLOGIC [ptient is awake, alert and oriented 3 . Results 12/22/18 17:32 12/22/18 17:32 Cardiac Enzymes 12/22/18 12/22/18 12/23/18 Range/Units 17:32 17:32 01:10 AST 72 H (17-59) U/L Troponin I 0.176 H* 0.148 H* (0.000-0.034) ng/mL Coagulation 12/22/18 12/23/18 Range/Units 17:32 01:10 PT 13.6 H (9.0-12.0) sec APTT 27.3 33.3 H (22.0-30.0) sec CBC 12/22/18 Range/Units 17:32 WBC 9.2 (3.8-10.6) k/uL RBC 4.97 (4.30-5.90) m/uL Hgb 17.6 H (13.0-17.5) gm/dL Hct 52.6 (39.0-53.0) % Plt Count 175 (150-450) k/uL Comprehensive Metabolic Panel 12/22/18 Range/Units 17:32 Sodium 137 (137-145) mmol/L Potassium 4.0 (3.5-5.1) mmol/L Chloride 88 L (98-107) mmol/L Carbon Dioxide 41 H* (22-30) mmol/L BUN 9 (9-20) mg/dL Creatinine 0.58 L (0.66-1.25) mg/dL Glucose 128 H (74-99) mg/dL Calcium 9.1 (8.4-10.2) mg/dL AST 72 H (17-59) U/L ALT 54 (21-72) U/L Alkaline Phosphatase 71 (38-126) U/L Total Protein 6.6 (6.3-8.2) g/dL Albumin 3.9 (3.5-5.0) g/dL Current Medications Generic Name Dose Route Start Last Admin Trade Name Freq PRN Reason Stop Dose Admin Acetaminophen 500 mg 12/22/18 21:49 Tylenol Tab PO Q6HR PRN Fever and/ or Pain Albuterol/Ipratropium 3 ml 12/22/18 18:52 12/22/18 19:10 Duoneb 0.5 Mg-3 Mg/3 Ml Soln INHALATION 3 ml RT-Q4H PRN Administration Shortness Of Breath Or Wheezing Alprazolam 0.5 mg 12/22/18 21:48 Xanax PO ONCE PRN Anxiety Aspirin 325 mg 12/23/18 09:00 Aspirin PO DAILY [facility] Heparin Sodium/Sodium Chloride 250 mls @ 8.655 mls/hr 12/22/18 19:00 12/23/18 02:04 25,000 unit/ Sodium Chloride IV 15 units/kg/hr .Q24H [facility] 10.818 mls/hr Titration Protocol 12 UNITS/KG/HR Insulin Aspart 0 unit 12/22/18 21:00 12/23/18 06:32 Novolog SQ Not Given ACHS [facility] Protocol Ketotifen Fumarate 1 drops 12/22/18 21:00 12/22/18 21:04 Zaditor BOTH EYES 1 drops BID [facility] Administration Methylprednisolone Sodium Succinate 60 mg 12/23/18 00:00 12/23/18 04:37 Solu-Medrol IV 60 mg Q6HR [facility] Administration Nicotine 1 patch 12/22/18 22:00 12/22/18 22:34 Habitrol 21mg/24hr Patch TRANSDERM 1 patch DAILY [facility] Administration Nitroglycerin 1 inch 12/23/18 00:00 12/23/18 04:38 Nitro-Bid Oint TOPICAL Not Given Q6HR [facility] Intake and Output 12/22/18 12/23/18 12/23/18 22:59 06:59 14:59 Intake Total 58.854 Output Total 1400 Balance -1400 58.854 Intake: Intake, IV Titration 58.854 Amount Heparin Sod,Pork in 0.45% 58.854 NaCl 25,000 unit In 0.45 % NaCl 1 250ml.bag @ 12 UNITS/KG/HR 8.655 mls/hr IV .Q24H [facility] Rx#: [id number] Output: Urine 1400 Other: # Voids 1 Weight 72.121 kg 84.6 kg 12/22/18 17:32 12/22/18 17:32 EKG Interpretations (text) EKG shows a normal sinus rhythm with anterior ST-T wave changes and inferior Q waves noted. Assessment and Plan Plan: Assessment and plan #1 symptoms of progressively worsening shortness of breath, element of congestive cardiac failure with elevated BNP level, LV function unknown. Possible bronchitis or COPD exacerbation. #2 cardiac risk factors negative for hypertension, diabetes, hyperlipidemia, no family history of premature coronary artery disease #3 nicotine dependence #4 abnormal troponins, could be secondary to hypoxia. #5 elevated bilirubin and AST Plan We will obtain an echocardiogram with Doppler study. Repeat an EKG this mornin g. Decrease aspirin 81 mg daily, discontinue Nitropaste. Obtain a third troponin value and d-dimer. Continue IV Lasix. Obtain ultrasound of the gallbladder. Further recommendations to follow. DNP note has been reviewed, I agree with a documented findings and plan of care. Patient was seen and examined.
[2018-12-23] MEDS: NICOTINE 21MG/24HR PATCH TRANSDERM SCH (08:17)
[2018-12-23] MEDS: ASPIRIN 81 MG PO SCH (08:17)
[2018-12-23] MEDS ORDERED: FUROSEMIDE 10 MG/ML 4 ML VIAL IV SCH (09:00)
[2018-12-23] MEDS ORDERED: ASPIRIN 325 MG TAB PO SCH (09:00)
[2018-12-23 09:14] LABS: D-Dimer 1.02 mg/L FEU (<0.60); Partial Thromboplastin Time 37.8 sec (22.0-30.0)
--- NOTE | 2018-12-23 09:27 | US ---
EXAMINATION TYPE: US gallbladder DATE OF EXAM: 12/23/2018 COMPARISON: NONE CLINICAL HISTORY: elevated liver enz. elevated enzymes EXAM MEASUREMENTS: Liver Length: 15.7 cm Gallbladder Wall: 0.3 cm CBD: 0.7 cm Right Kidney: 11.3 x 5.5 x 5.8 cm Pancreas: Obscured by bowel gas Liver: Increased attenuation Gallbladder: Hypoechoic area seen in the fundus. Evidence for sonographic Pat's sign: No CBD: Upper limits. Right Kidney: wnl IMPRESSION: 1. There is gallbladder wall thickening with internal luminal echoes which may reflect sloughed mucos a. No definite gallstones seen. Common bile duct is mildly prominent. 2. Probable hepatic steatosis.
[2018-12-23] MEDS: LISINOPRIL 5 MG TAB PO SCH ×2 (09:48→19:45)
[2018-12-23] MEDS: ATORVASTATIN 40 MG TAB PO SCH (09:48)
[2018-12-23] MEDS: KETOTIFEN 0.025% OPHTH DROPS 5 ML BTL BOTH EYES SCH ×2 (09:57→19:45)
--- NOTE | 2018-12-23 10:33 | ECHOF ---
Referral Reason:abn trop MEASUREMENTS -------- HEIGHT: 175.3 cm WEIGHT: 84.4 kg BP: 125/72 RVIDd: 3.6 cm (< 3.3) IVSd: 0.9 cm (0.6 - 1.1) LVIDd: 4.2 cm (3.9 - 5.3) LVPWd: 1.2 cm (0.6 - 1.1) IVSs: 1.4 cm LVIDs: 2.4 cm LVPWs: 1.8 cm LAESV Index (A-L): 21.35 ml/m Ao Diam: 2.6 cm (2.0 - 3.7) AV Cusp: 2.0 cm (1.5 - 2.6) LA Diam: 2.7 cm (2.7 - 3.8) MV EXCURSION: 13.189 mm (> 18.000) MV EF SLOPE: 67 mm/s (70 - 150) EPSS: 0.5 cm MV E Kelvin: 0.52 m/s MV DecT: 188 ms MV A Kelvin: 0.78 m/s MV E/A Ratio: 0.67 RAP: 5.00 mmHg RVSP: 28.31 mmHg FINDINGS -------- Sinus rhythm. This was a technically adequate study. The left ventricular size is normal. There is mild concentric left ventricular hypertrophy. Overa ll left ventricular systolic function is normal with, an EF between 55 - 60 %. The right ventricle is mildly enlarged. The left atrial size is normal. Normal LA size by volume 22+/-6 ml/m2. The right atrial size is normal. Interatrial and interventricular septum intact. The aortic valve is trileaflet and appears structurally normal. The mitral valve is normal. There is trace mitral regurgitation. Mild tricuspid regurgitation present. Right ventricular systolic pressure is normal at < 35 mmHg. There is no pulmonic regurgitation present. The aortic root size is normal. Normal inferior vena cava with normal inspiratory collapse consistent with estimated right atrial pre ssure of 5 mmHg. There is no pericardial effusion. CONCLUSIONS -------- 1. Sinus rhythm. 2. This was a technically adequate study. 3. The left ventricular size is normal. 4. There is mild concentric left ventricular hypertrophy. 5. Overall left ventricular systolic function is normal with, an EF between 55 - 60 %. 6. The right ventricle is mildly enlarged. 7. The left atrial size is normal. 8. Normal LA size by volume 22+/-6 ml/m2. 9. The right atrial size is normal. 10. Interatrial and interventricular septum intact. 11. The aortic valve is trileaflet and appears structurally normal. 12. The mitral valve is normal. 13. There is trace mitral regurgitation. 14. Mild tricuspid regurgitation present. 15. Right ventricular systolic pressure is normal at < 35 mmHg. 16. There is no pulmonic regurgitation present. 17. The aortic root size is normal. 18. Normal inferior vena cava with normal inspiratory collapse consistent with estimated right atrial pressure of 5 mmHg. 19. There is no pericardial effusion. NEEDLE FELT MAKING MACHINE OPERATOR: Valencia Ramirez RDCS
[2018-12-23 11:47] LABS: Glucose,Whole Blood 251 mg/dL (75-99)
[2018-12-23] MEDS ORDERED: THIAMINE 100 MG/ML 2 ML VIAL IM STA (12:23)
--- NOTE | 2018-12-23 12:30 | P.HPIM ---
History of Present Illness Patient is a 58-year-old gentleman came in with comments of shortness of breath and cough unable to bring up anything patient has wheezing on exam. Patient is minimally elevated troponins of 0.148 patient denied any significant chest pain patient does have epigastric burning sensation patient is alert with cardiology believe elevated troponin secondary to hypoxemia. Patient does have COPD exacerbation was started on inhalational steroids in systemic steroids and the inhalational treatments. Patient does drink alcohol on regular basis. Patient does have chronic on Cardizem and memory issues secondary to chronic alcoholism although patient does not appear to have Wernicke's encephalopathy or psychosis at this time. Patient denied orthopnea paroxysmal nocturnal dyspnea patient does not have any significantly elevated JVD. BNP is 1890. Patient is already volume contracted with bicarbonate of 41 because of which I discontinued Lasix at this time. Patient does bring up yellowish sputum Review of Systems REVIEW OF SYSTEMS: CONSTITUTIONAL: No fever, no malaise, no fatigue. HEENT: No recent visual problems or hearing problems. Denied any sore throat. CARDIOVASCULAR: No chest pain, orthopnea, PND, no palpitations, no syncope. PULMONARY: no hemoptysis. GASTROINTESTINAL: No diarrhea, no nausea, no vomiting, NEUROLOGICAL: No headaches, no weakness, no numbness. HEMATOLOGICAL: Denies any bleeding or petechiae. GENITOURINARY: Denies any burning micturition, frequency, or urgency. MUSCULOSKELETAL/RHEUMATOLOGICAL: Denies any joint pain, swelling, or any muscle pain. ENDOCRINE: Denies any polyuria or polydipsia. The rest of the 14-point review of systems is negative. Past Medical History Past Medical History: Asthma, COPD Additional Past Medical History / Comment(s): Past bilateral feet-gout. History of Any Multi-Drug Resistant Organisms: None Reported Past Surgical History: Orthopedic Surgery, Tonsillectomy Additional Past Surgical History / Comment(s): left hand tendon surgery Past Anesthesia/Blood Transfusion Reactions: No Reported Reaction Past Psychological History: No Psychological Hx Reported Additional Psychological History / Comment(s): Pt resides with his spouse. He uses no assistive device. He drives. Smoking Status: Current every day smoker Past Alcohol Use History: Daily, Heavy Additional Past Alcohol Use History / Comment(s): Pt states he started smoking in 1979 and is less than a ppd smoker. He states he used to drink 6-7 liquor beverages a day and quit drinking 3-4 months ago. Past Drug Use History: Marijuana Additional Drug Use History / Comment(s): Pt states he smokes marijuana occasionally. - Past Family History Father Family Medical History: No Reported History Additional Family Medical History / Comment(s): Father is alive and in his 70's Mother Family Medical History: Pneumonia Additional Family Medical History / Comment(s): Mother of pneumonia at the age of 52yrs. Medications and Allergies Home Medications Medication Instructions Recorded Confirmed Type Ibuprofen [Motrin Ib] 400 mg PO Q6H PRN 12/22/18 12/22/18 History Allergies Allergy/AdvReac Type Severity Reaction Status Date / Time No Known Allergies Allergy Verified 12/22/18 16:58 Physical Exam Vitals: Vital Signs Temp Pulse Pulse Resp BP BP Pulse Ox 12/23/18 12:00 98.3 F 95 18 163/72 98 12/23/18 11:04 18 12/23/18 08:00 98.2 F 92 18 147/77 93 L 12/23/18 03:12 98.6 F 96 18 125/72 98 12/22/18 22:58 95 18 115/53 97 12/22/18 19:24 93 18 12/22/18 19:18 99.3 F 96 20 155/91 98 12/22/18 19:13 93 18 12/22/18 19:08 99.6 F 100 18 171/83 89 L 12/22/18 18:00 92 13 168/90 96 12/22/18 17:30 92 10 L 157/101 97 12/22/18 17:00 96 13 166/94 97 12/22/18 16:44 18 12/22/18 16:43 96 16 166/94 96 12/22/18 16:29 99.0 F 86 26 H 157/88 86 L Intake and Output 12/22/18 12/23/18 12/23/18 22:59 06:59 14:59 Intake Total 58.854 318.971 Output Total 1400 Balance -1400 58.854 318.971 Intake: Intake, IV Titration 58.854 78.971 Amount Heparin Sod,Pork in 0.45% 58.854 78.971 NaCl 25,000 unit In 0.45 % NaCl 1 250ml.bag @ 12 UNITS/KG/HR 8.655 mls/hr IV .Q24H CHERRY Rx#: [id number] Oral 240 Output: Urine 1400 Other: # Voids 1 Weight 72.121 kg 84.6 kg PHYSICAL EXAMINATION: GENERAL: The patient is alert and oriented x3, not in any acute distress. Well developed, well nourished. HEENT: Pupils are round and equally reacting to light. EOMI. No scleral icterus. No conjunctival pallor. Normocephalic, atraumatic. No pharyngeal erythema. No thyromegaly. CARDIOVASCULAR: S1 and S2 present. No murmurs, rubs, or gallops. PULMONARY: Chest is clear to auscultation, no wheezing or crackles. ABDOMEN: Soft, nontender, nondistended, normoactive bowel sounds. No palpable organomegaly. MUSCULOSKELETAL: No joint swelling or deformity. EXTREMITIES: No cyanosis, clubbing, or pedal edema. NEUROLOGICAL: Gross neurological examination did not reveal any focal deficits. SKIN: No rashes. Results CBC & Chem 7: 12/22/18 17:32 12/22/18 17:32 Labs: Abnormal Lab Results - Last 24 Hours (Table) 12/22/18 12/22/18 12/22/18 Range/Units 17:32 17:32 17:32 Hgb 17.6 H (13.0-17.5) gm/dL MCV 105.9 H (80.0-100.0) fL MCH 35.4 H (25.0-35.0) pg Lymphocytes # 0.7 L (1.0-4.8) k/uL PT 13.6 H (9.0-12.0) sec INR 1.3 H (<1.2) APTT (22.0-30.0) sec D-Dimer (<0.60) mg/L FEU Chloride 88 L (98-107) mmol/L Carbon Dioxide 41 H* (22-30) mmol/L Creatinine 0.58 L (0.66-1.25) mg/dL Glucose 128 H (74-99) mg/dL POC Glucose (mg/dL) (75-99) mg/dL Total Bilirubin 2.2 H (0.2-1.3) mg/dL AST 72 H (17-59) U/L Troponin I (0.000-0.034) ng/mL 12/22/18 12/22/18 12/23/18 Range/Units 17:32 21:02 01:10 Hgb (13.0-17.5) gm/dL MCV (80.0-100.0) fL MCH (25.0-35.0) pg Lymphocytes # (1.0-4.8) k/uL PT (9.0-12.0) sec INR (<1.2) APTT 33.3 H (22.0-30.0) sec D-Dimer (<0.60) mg/L FEU Chloride (98-107) mmol/L Carbon Dioxide (22-30) mmol/L Creatinine (0.66-1.25) mg/dL Glucose (74-99) mg/dL POC Glucose (mg/dL) 151 H (75-99) mg/dL Total Bilirubin (0.2-1.3) mg/dL AST (17-59) U/L Troponin I 0.176 H* (0.000-0.034) ng/mL 12/23/18 12/23/18 12/23/18 Range/Units 01:10 06:26 08:28 Hgb (13.0-17.5) gm/dL MCV (80.0-100.0) fL MCH (25.0-35.0) pg Lymphocytes # (1.0-4.8) k/uL PT (9.0-12.0) sec INR (<1.2) APTT 37.8 H (22.0-30.0) sec D-Dimer 1.02 H (<0.60) mg/L FEU Chloride (98-107) mmol/L Carbon Dioxide (22-30) mmol/L Creatinine (0.66-1.25) mg/dL Glucose (74-99) mg/dL POC Glucose (mg/dL) 159 H (75-99) mg/dL Total Bilirubin (0.2-1.3) mg/dL AST (17-59) U/L Troponin I 0.148 H* (0.000-0.034) ng/mL 12/23/18 Range/Units 11:46 Hgb (13.0-17.5) gm/dL MCV (80.0-100.0) fL MCH (25.0-35.0) pg Lymphocytes # (1.0-4.8) k/uL PT (9.0-12.0) sec INR (<1.2) APTT (22.0-30.0) sec D-Dimer (<0.60) mg/L FEU Chloride (98-107) mmol/L Carbon Dioxide (22-30) mmol/L Creatinine (0.66-1.25) mg/dL Glucose (74-99) mg/dL POC Glucose (mg/dL) 251 H (75-99) mg/dL Total Bilirubin (0.2-1.3) mg/dL AST (17-59) U/L Troponin I (0.000-0.034) ng/mL Thrombosis Risk Factor Assmnt - Choose All That Apply Any of the Below Risk Factors Present?: Yes Each Factor Represents 1 point: Abnormal pulmonary function (COPD), Age 41-60 years Thrombosis Risk Factor Assessment Total Risk Factor Score: 2 Thrombosis Risk Factor Assessment Level: Low Risk Assessment and Plan Plan: -Acute hypercapnic respiratory failure secondary to COPD exacerbation patient wi ll be started on inhaled steroids inhalational treatments as mentioned above. Along with systemic steroids. -Mildly elevated troponin that no wall motion abnormality this an echocardiogram patient is not in heart failure either inpatient the elevated troponin secondary to hypoxemia no evidence of acute myocardial infarction at this time, patient is being continued on IV heparin [facility] cardi[facility]. -Chronic alcoholism patient is expected to have withdrawals patient will be started on Ativan CIWA protocol -Mild alcoholic hepatitis -Epigastric abdominal burning sensation seconded alcoholic gastritis gallbladder ultrasound did show sludge but no intervention is necessary and patient will be on proton pump inhibitor for this -Continued nicotine use excessive counseling was provided regarding this -Elevated serum bicarbonate secondary to contraction alkalosis Lasix will be discontinued patient may actually need IV fluids -Elevated d-dimer my suspicion and pretest probably for PE is low because of which CT angios the chest is not being ordered and his shortness of breath is secondary to COPD exacerbation
[2018-12-23] MEDS: LORazepam 2 MG/ML INJ IV PRN ×4 (13:34→23:02)
[2018-12-23] MEDS ORDERED: NITROGLYCERIN SL TABS 0.4 MG TAB SUBLINGUAL PRN (13:35)
[2018-12-23] MEDS: PANTOPRAZOLE 40 MG/10 ML VIAL IVP SCH (13:39)
--- NOTE | 2018-12-23 15:34 | NM ---
EXAMINATION TYPE: NM pul vent and perfuse DATE OF EXAM: 12/23/2018 COMPARISON: NONE HISTORY: Shortness of breath rule out PE TECHNIQUE: Utilizing inhalation of 40.8 mCi Tc 99m DTPA aerosol and intravenous injection of 5 mCi o f Tc 99m MAA, ventilation and perfusion images are acquired post injection in multiple projections. FINDINGS: Moderate to severe central accumulation of radiotracer on the ventilation portion of the study compat ible with COPD. There are a few matched defects within the upper lobe seen without perfusion mismatc h. IMPRESSION: Low to intermediate probability for pulmonary embolism.
[2018-12-23] MEDS: IPRATROPIUM-ALBUTEROL 3 ML NEB INHALATION PRN (16:37)
[2018-12-23] MEDS: THIAMINE 100 MG TAB PO SCH ×2 (16:39→16:40)
[2018-12-23] MEDS: HEPARIN SOD,PORK IN 0.45% NACL 25,000 UNIT in 0.45% NACL 1 250ML.BAG IV SCH (16:40)
[2018-12-23 16:44] LABS: Glucose,Whole Blood 128 mg/dL (75-99)
[2018-12-23 20:44] LABS: Glucose,Whole Blood 162 mg/dL (75-99)
[2018-12-23] MEDS ORDERED: FAMOTIDINE 20 MG TAB PO SCH (21:00)
[2018-12-23 22:22] LABS: Hemoglobin A1C 6.7 % (4.0-6.0)
[2018-12-23] MEDS ORDERED: HALOPERIDOL LACTATE 5 MG/ML 1 ML VIAL IVP STA (23:28)
[2018-12-24] MEDS: LORazepam 2 MG/ML INJ IV PRN ×8 (03:09→23:06)
[2018-12-24] MEDS ORDERED: SODIUM CHLORIDE 0.9% 1,000 ML in EMPTY BAG 1 BAG IV ONE (06:00)
[2018-12-24] MEDS ORDERED: ATORVASTATIN 80 MG TAB PO ONE (06:00)
[2018-12-24] MEDS ORDERED: ASPIRIN 325 MG TAB PO ONE (06:00)
[2018-12-24 06:12] LABS: Glucose,Whole Blood 127 mg/dL (75-99)
[2018-12-24] MEDS: INSULIN ASPART (NovoLOG) 100 UNIT/ML VIAL SQ SCH ×4 (06:34→20:50)
--- NOTE | 2018-12-24 11:13 | PN ---
PROGRESS NOTE Mr. Shah is a 58-year-old male who has a history of chronic tobacco use, history of chronic alcohol intake, who presented with progressive dyspnea and mild chest discomfort. He had minimal troponin elevation with T-wave inversion anteriorly. His echocardiogram revealed preserved left ventricular size and systolic function. The plan was to proceed with cardiac catheterization today to further evaluate his anatomy, but the patient became quite agitated and exhibited signs of withdrawal yesterday. He has received a large amount of Haldol and he is quite sedated at this time. Hemodynamically, he remained stable and on the monitor. There is no evidence of tachycardia. He continues to be on aspirin once a day. Lipitor 40 mg daily, lisinopril 5 mg twice a day. PHYSICAL EXAMINATION: He is sedated. Blood pressure 142/69 with the heart rate in the 80s LUNGS: Decreased air exchange, no wheezes. HEART: Regular rate and rhythm/ S1, S2. No S3. No rub. ABDOMEN: Soft, nontender. EXTREMITIES: No edema. IMPRESSION: 1. Mild troponin elevation with T-wave inversion anteriorly of unclear etiology in the setting of exacerbation of chronic obstructive pulmonary disease, rule out obstructive disease and non ST-segment elevation myocardial infarction. 2. Alcohol withdrawal. 3. Chronic tobacco use with exacerbation of chronic obstructive pulmonary disease. 4. History of alcohol intake. RECOMMENDATION: From the cardiac standpoint, I will stop the heparin at this time. Continue the rest of his medical regimen. We will hold on the cardiac catheterization pending his neurological status and withdrawal and further recommendation will be made at that time. MMODL / LA NENAN: [id number] /
[2018-12-24 11:41] LABS: Glucose,Whole Blood 121 mg/dL (75-99)
[2018-12-24] MEDS: KETOTIFEN 0.025% OPHTH DROPS 5 ML BTL BOTH EYES SCH ×2 (11:47→21:40)
[2018-12-24] MEDS: THIAMINE 100 MG TAB PO SCH ×2 (11:47→18:53)
--- NOTE | 2018-12-24 12:37 | P.PN ---
Subjective 58-year-old admitted for COPD exacerbation patient does have minimal troponin elevation because of which patient will undergo cardiac catheterization on his respiratory issues addressed and patient does have alcoholic withdrawal, his CIWA score is around 19 patient is receiving IV Ativan once his alcohol withdrawals are not better patient underwent cardiac catheterization patient will be on IV heparin until that. Constitutional: Patient appears to be tested fatigued does have some tremor Cardio vascular: denied any chest pain, palpitations Gastrointestinal denied any nausea vomiting Pulmonary: Denied any shortness of breath cough Neurologic denied any new focal deficits All inpatient medications were reviewed and appropriate changes in these medications as dictated in the interval history and assessment and plan. Objective - Vital Signs Vital signs: Vital Signs Temp 98.7 F 12/24/18 04:00 Pulse 82 12/24/18 11:24 Resp 18 12/24/18 11:48 BP 143/83 12/24/18 11:24 Pulse Ox 97 12/24/18 11:24 Intake & Output 12/23/18 12/24/18 12/24/18 18:59 06:59 18:59 Intake Total 653.740 35.701 Output Total 600 200 Balance 53.740 -164.299 Weight 82.8 kg Intake: Intake, IV Titration 173.740 35.701 Amount Heparin Sod,Pork in 0.45% 173.740 35.701 NaCl 25,000 unit In 0.45 % NaCl 1 250ml.bag @ 12 UNITS/KG/HR 8.655 mls/hr IV .Q24H [facility]ERRY Rx#: [id number] Oral 480 Output: Urine 600 200 Other: Voiding Method Urinal # Voids 1 - Exam PHYSICAL EXAMINATION: GENERAL: The patient is alert and oriented x3, not in any acute distress. Well developed, well nourished. HEENT: Pupils are round and equally reacting to light. EOMI. No scleral icterus. No conjunctival pallor. Normocephalic, atraumatic. No pharyngeal erythema. No thyromegaly. CARDIOVASCULAR: S1 and S2 present. No murmurs, rubs, or gallops. PULMONARY: Minimal expiratory wheezing on exam ABDOMEN: Soft, nontender, nondistended, normoactive bowel sounds. No palpable organomegaly. MUSCULOSKELETAL: No joint swelling or deformity. EXTREMITIES: No cyanosis, clubbing, or pedal edema. NEUROLOGICAL: Gross neurological examination did not reveal any focal deficits. SKIN: No rashes. - Labs CBC & Chem 7: 12/22/18 17:32 12/22/18 17:32 Labs: Abnormal Lab Results - Last 24 Hours (Table) 12/22/18 12/23/18 12/23/18 Range/Units 17:32 08:28 16:25 APTT 40.5 H (22.0-30.0) sec POC Glucose (mg/dL) (75-99) mg/dL Hemoglobin A1c 6.7 H (4.0-6.0) % Troponin I 0.114 H* (0.000-0.034) ng/mL 12/23/18 12/23/18 12/23/18 Range/Units 16:25 16:39 20:43 APTT (22.0-30.0) sec POC Glucose (mg/dL) 128 H 162 H (75-99) mg/dL Hemoglobin A1c (4.0-6.0) % Troponin I 0.105 H* (0.000-0.034) ng/mL 12/24/18 12/24/18 12/24/18 Range/Units 00:58 06:12 07:37 APTT 51.3 H 57.3 H (22.0-30.0) sec POC Glucose (mg/dL) 127 H (75-99) mg/dL Hemoglobin A1c (4.0-6.0) % Troponin I (0.000-0.034) ng/mL 12/24/18 Range/Units 11:39 APTT (22.0-30.0) sec POC Glucose (mg/dL) 121 H (75-99) mg/dL Hemoglobin A1c (4.0-6.0) % Troponin I (0.000-0.034) ng/mL Microbiology - Last 24 Hours (Table) 12/22/18 17:32 Blood Culture - Preliminary Blood No Growth after 24 hours Assessment and Plan Plan: -Acute hypercapnic respiratory failure secondary to COPD exacerbation patient will be started on inhaled steroids inhalational treatments as mentioned above. Along with systemic steroids. Wheezing improved today -Mildly elevated troponin most probably secondary to hypoxemia, cardiology evaluated the patient. The recommending cardiac catheterization -Chronic alcoholism with withdrawals patient is on Ativan CIWA protocol -Mild alcoholic hepatitis -Epigastric abdominal burning sensation seconded alcoholic gastritis gallbladder ultrasound did show sludge but no intervention is necessary and patient will be on proton pump inhibitor for this -Continued nicotine use excessive counseling was provided regarding this -Elevated serum bicarbonate secondary to contraction alkalosis Lasix will be discontinued patient may actually need IV fluids -Elevated d-dimer my suspicion is low and pretest probably for PE is low because of which CT angios the chest is not being ordered and his shortness of breath is secondary to COPD exacerbation
[2018-12-24] MEDS: LISINOPRIL 5 MG TAB PO SCH ×2 (14:43→21:40)
[2018-12-24] MEDS: PANTOPRAZOLE 40 MG/10 ML VIAL IVP SCH (14:43)
[2018-12-24] MEDS: ASPIRIN 81 MG PO SCH (14:43)
[2018-12-24] MEDS: ATORVASTATIN 40 MG TAB PO SCH (14:43)
[2018-12-24] MEDS: NICOTINE 21MG/24HR PATCH TRANSDERM SCH (14:45)
[2018-12-24] MEDS: predniSONE 20 MG TAB PO SCH (14:52)
[2018-12-24 16:39] LABS: Glucose,Whole Blood 158 mg/dL (75-99)
[2018-12-24 20:45] LABS: Glucose,Whole Blood 144 mg/dL (75-99)
[2018-12-24] MEDS: ALPRAZolam 0.5 MG TAB PO PRN (23:05)
[2018-12-25] MEDS: LORazepam 2 MG/ML INJ IV PRN ×4 (01:39→22:19)
[2018-12-25 06:26] LABS: Glucose,Whole Blood 115 mg/dL (75-99)
[2018-12-25] MEDS: INSULIN ASPART (NovoLOG) 100 UNIT/ML VIAL SQ SCH ×4 (06:29→21:12)
[2018-12-25] MEDS: THIAMINE 100 MG TAB PO SCH ×2 (06:30→17:10)
[2018-12-25 07:01] LABS: HCT 50.6 % (39.0-53.0); HGB 16.9 gm/dL (13.0-17.5); MCH 35.5 pg (25.0-35.0); MCHC 33.4 g/dL (31.0-37.0); MCV 106.5 fL (80.0-100.0); Macrocytosis Moderate; Platelet Count 150 k/uL (150-450); RBC 4.75 m/uL (4.30-5.90); RDW 15.8 % (11.5-15.5); WBC 11.9 k/uL (3.8-10.6)
[2018-12-25 07:16] LABS: African American GFR (CKD) >90 (>60 ml/min/1.73 sqM); Anion Gap 8 mmol/L; Blood Urea Nitrogen 12 mg/dL (9-20); Calcium 8.1 mg/dL (8.4-10.2); Carbon Dioxide 35 mmol/L (22-30); Chloride 95 mmol/L (98-107); Glucose 115 mg/dL (74-99); Potassium 3.2 mmol/L (3.5-5.1); Sodium 138 mmol/L (137-145)
[2018-12-25] MEDS: IPRATROPIUM-ALBUTEROL 3 ML NEB INHALATION PRN ×2 (08:43→19:51)
[2018-12-25] MEDS: predniSONE 20 MG TAB PO SCH (09:03)
[2018-12-25] MEDS: ATORVASTATIN 40 MG TAB PO SCH (09:03)
[2018-12-25] MEDS: PANTOPRAZOLE 40 MG/10 ML VIAL IVP SCH (09:04)
[2018-12-25] MEDS: LISINOPRIL 5 MG TAB PO SCH ×2 (09:04→21:15)
[2018-12-25] MEDS: ASPIRIN 81 MG PO SCH (09:04)
[2018-12-25] MEDS: NICOTINE 21MG/24HR PATCH TRANSDERM SCH (09:04)
[2018-12-25] MEDS: METOPROLOL TARTRATE 25 MG TAB PO SCH ×2 (09:06→21:15)
[2018-12-25] MEDS: KETOTIFEN 0.025% OPHTH DROPS 5 ML BTL BOTH EYES SCH ×2 (09:06→21:15)
[2018-12-25 11:30] LABS: Glucose,Whole Blood 145 mg/dL (75-99)
--- NOTE | 2018-12-25 12:11 | PN ---
PROGRESS NOTE Mr. Shah is a 58-year-old male with a known history of chronic tobacco and alcohol intake, who presented with symptoms suggestive of upper respiratory infection. He had mild troponin elevation, T-wave inversion anteriorly. The plan was to undergo cardiac catheterization, but patient exhibited sign of withdrawal requiring significant sedation. He remains quite sedated at this time. Hemodynamically stable. There is no evidence of tachyarrhythmia or bradyarrhythmia. He continues to be at this time on aspirin once a day, Lipitor 40 mg daily, lisinopril 5 mg twice a day. PHYSICAL EXAMINATION: Blood pressure running in the 140s and 160s with the heart rate in the 80s. LUNGS: Decreased air exchange, no wheezes. HEART: Regular rate and rhythm. S1, S2. No S3. No rub. ABDOMEN: Soft, nontender. EXTREMITIES: No edema. LAB DATA: Lab data revealed a BUN and creatinine of 12 and 0.56, potassium 3.2, hemoglobin of 16.9. IMPRESSION: 1. Alcohol withdrawal. 2. Mild troponin elevation with T-wave inversion of unclear etiology with preserved systolic function. 3. Hypertension. 4. History of chronic alcohol and tobacco use. RECOMMENDATION: I will add the beta ney to regimen. Continue on the rest of his medication. Follow his blood pressure and depending on his progress, further recommendation will be made. At this time, cardiac catheterization will be held because of his overall status. MMODL / IJN: [id number] /
[2018-12-25 17:12] LABS: Glucose,Whole Blood 175 mg/dL (75-99)
[2018-12-25 20:54] LABS: Glucose,Whole Blood 128 mg/dL (75-99)
[2018-12-25] MEDS: POTASSIUM CHLORIDE ER 20 MEQ TAB.ER PO SCH ×2 (21:15→22:27)
[2018-12-25] MEDS: ALPRAZolam 0.5 MG TAB PO PRN (22:18)
[2018-12-26] MEDS: LORazepam 2 MG/ML INJ IV PRN ×3 (04:45→20:06)
[2018-12-26] MEDS: INSULIN ASPART (NovoLOG) 100 UNIT/ML VIAL SQ SCH ×4 (06:31→21:02)
[2018-12-26] MEDS: THIAMINE 100 MG TAB PO SCH ×2 (06:31→16:24)
[2018-12-26 06:54] LABS: Glucose,Whole Blood 158 mg/dL (75-99)
[2018-12-26 06:56] LABS: African American GFR (CKD) >90 (>60 ml/min/1.73 sqM); Anion Gap 8 mmol/L; Blood Urea Nitrogen 11 mg/dL (9-20); Calcium 8.3 mg/dL (8.4-10.2); Carbon Dioxide 33 mmol/L (22-30); Chloride 95 mmol/L (98-107); Glucose 164 mg/dL (74-99); Potassium 2.9 mmol/L (3.5-5.1); Sodium 136 mmol/L (137-145)
[2018-12-26] MEDS ORDERED: Potassium Replacement Protocol 1 EACH MISC MISCELLANE PRN (07:31)
[2018-12-26] MEDS: IPRATROPIUM-ALBUTEROL 3 ML NEB INHALATION PRN ×4 (08:05→20:29)
[2018-12-26] MEDS: LISINOPRIL 5 MG TAB PO SCH ×2 (08:27→20:05)
[2018-12-26] MEDS: PANTOPRAZOLE 40 MG TABLET PO SCH (08:27)
[2018-12-26] MEDS: METOPROLOL TARTRATE 25 MG TAB PO SCH ×2 (08:27→20:05)
[2018-12-26] MEDS: ATORVASTATIN 40 MG TAB PO SCH (08:27)
[2018-12-26] MEDS: ASPIRIN 81 MG PO SCH (08:27)
[2018-12-26] MEDS: NICOTINE 21MG/24HR PATCH TRANSDERM SCH (08:27)
[2018-12-26] MEDS: predniSONE 20 MG TAB PO SCH (08:27)
[2018-12-26] MEDS: KETOTIFEN 0.025% OPHTH DROPS 5 ML BTL BOTH EYES SCH ×2 (08:30→21:03)
[2018-12-26] MEDS: POTASSIUM CHLORIDE ER 20 MEQ TAB.ER PO SCH ×5 (08:31→22:16)
[2018-12-26] MEDS ORDERED: POTASSIUM CHLORIDE 20 MEQ in WATER FOR INJECTION 1 100ML.BAG IVPB STA (11:19)
--- NOTE | 2018-12-26 11:45 | P.PN ---
Subjective Progress Note Date: 12/26/18 This is a 58-year-old gentleman with a known history of chronic tobacco and alcohol abuse. He presented with symptoms suggestive of upper respiratory infection. He had a mild troponin elevation and T-wave inversion anteriorly. Initial plan was to undergo cardiac catheterization but patient exhibited signs of withdrawal requiring significant sedation. He remains quite sedated at this time. After speaking with the , it appears the patient drinks at least a fifth of liquor every day. He is currently hemodynamically stable. There is no evidence of tachyarrhythmia or bradyarrhythmia. He is currently on aspirin 81 mg by mouth daily, atorvastatin 40 mg by mouth daily, lisinopril 5 mg by mouth twice a day and metoprolol 25 mg by mouth twice a day. Echocardiogram this admission showed normal LV systolic function with ejection fraction from 55-60% with trace MR and mild TR. Labs this morning show white count of 11,900, sodium 136, potassium 2.9 which is being addressed by primary and BUN of 11 with creatinine of 0.54. Objective - Vital Signs Vital signs: Vital Signs Temp 100.0 F H 12/26/18 08:00 Pulse 77 12/26/18 11:26 Resp 18 12/26/18 11:26 BP 145/70 12/26/18 08:00 Pulse Ox 98 12/26/18 08:05 Intake & Output 12/25/18 12/26/18 12/26/18 18:59 06:59 18:59 Intake Total 0 240 Output Total 600 Balance -600 240 Weight 82.3 kg Intake: Oral 0 240 Output: Urine 600 Other: Voiding Method Urinal Urinal Urinal # Voids 2 - Exam PHYSICAL EXAMINATION: HEENT: Head is atraumatic, normocephalic. Pupils equal, round. Neck is supple. There is no elevated jugular venous pressure. HEART EXAMINATION: Heart sounds regular, S1 and S2 normal. No murmur or gallop heard. CHEST EXAMINATION: Lungs revealed decreased air exchange. ABDOMEN: Soft, Bowel sounds are heard. No organomegaly noted. EXTREMITIES: 2+ peripheral pulses with no evidence of peripheral edema and no calf tenderness noted. NEUROLOGIC patient is sedated. . - Labs CBC & Chem 7: 12/25/18 06:27 12/26/18 06:06 Labs: Abnormal Lab Results - Last 24 Hours (Table) 12/25/18 12/25/1819 Range/Units 17:03 20:53 06:06 Sodium 136 L (137-145) mmol/L Potassium 2.9 L (3.5-5.1) mmol/L Chloride 95 L (98-107) mmol/L Carbon Dioxide 33 H (22-30) mmol/L Creatinine 0.54 L (0.66-1.25) mg/dL Glucose 164 H (74-99) mg/dL POC Glucose (mg/dL) 175 H 128 H (75-99) mg/dL Calcium 8.3 L (8.4-10.2) mg/dL 12/26/18 Range/Units 06:28 Sodium (137-145) mmol/L Potassium (3.5-5.1) mmol/L Chloride (98-107) mmol/L Carbon Dioxide (22-30) mmol/L Creatinine (0.66-1.25) mg/dL Glucose (74-99) mg/dL POC Glucose (mg/dL) 158 H (75-99) mg/dL Calcium (8.4-10.2) mg/dL Microbiology - Last 24 Hours (Table) 12/22/18 17:32 Blood Culture - Preliminary Blood No Growth after 72 hours Assessment and Plan Assessment: #1 alcohol withdrawal #2 mild troponin elevation with T-wave inversion of unclear etiology with preserved systolic function and no evidence of segmental wall motion abnormalities #3 hypertension #4 history of chronic alcohol and tobacco use Plan: From cardiology's perspective, medications were reviewed and will continue the same. Continue to hold off on cardiac catheterization at this time due to acute alcohol withdrawal. We will Continue to follow and depending on his progress, further recommendations will be made. MARKETING COPYWRITER note has been reviewed, I agree with a documented findings and plan of care. Patient was seen and examined.
[2018-12-26 11:49] LABS: Glucose,Whole Blood 177 mg/dL (75-99)
[2018-12-26] MEDS ORDERED: DIPHENOX-ATROP 2.5-0.025 MG 1 EACH TAB PO PRN (15:52)
[2018-12-26] MEDS: ALPRAZolam 0.5 MG TAB PO PRN ×2 (16:27→22:20)
[2018-12-26 16:51] LABS: Glucose,Whole Blood 171 mg/dL (75-99)
[2018-12-26 21:00] LABS: Glucose,Whole Blood 121 mg/dL (75-99)
[2018-12-27 06:23] LABS: Glucose,Whole Blood 154 mg/dL (75-99)
[2018-12-27] MEDS: THIAMINE 100 MG TAB PO SCH ×2 (06:33→17:41)
[2018-12-27] MEDS: INSULIN ASPART (NovoLOG) 100 UNIT/ML VIAL SQ SCH ×4 (06:35→21:18)
[2018-12-27 07:13] LABS: African American GFR (CKD) >90 (>60 ml/min/1.73 sqM); Anion Gap 9 mmol/L; Blood Urea Nitrogen 8 mg/dL (9-20); Carbon Dioxide 31 mmol/L (22-30); Chloride 97 mmol/L (98-107); Glucose 123 mg/dL (74-99); Potassium 3.1 mmol/L (3.5-5.1); Sodium 137 mmol/L (137-145)
[2018-12-27 07:23] LABS: Basophils # (A) 0.1 k/uL (0-0.2); Basophils % (A) 0 %; Eosinophils # (A) 0.1 k/uL (0-0.7); Eosinophils % (A) 1 %; HCT 49.7 % (39.0-53.0); HGB 16.8 gm/dL (13.0-17.5); Lymphocytes # (A) 2.3 k/uL (1.0-4.8); Lymphocytes % (A) 18 %; MCH 35.7 pg (25.0-35.0); MCHC 33.8 g/dL (31.0-37.0); MCV 105.6 fL (80.0-100.0); Macrocytosis Moderate; Mean Platelet Volume 8.3; Monocytes # (A) 0.9 k/uL (0-1.0); Monocytes % (A) 7 %; Neutrophils # (A) 8.9 k/uL (1.3-7.7); Neutrophils % (A) 71 %; Platelet Count 126 k/uL (150-450); RBC 4.71 m/uL (4.30-5.90); RDW 15.8 % (11.5-15.5); WBC 12.5 k/uL (3.8-10.6)
[2018-12-27] MEDS: IPRATROPIUM-ALBUTEROL 3 ML NEB INHALATION PRN ×2 (08:17→12:04)
[2018-12-27] MEDS: PANTOPRAZOLE 40 MG TABLET PO SCH (08:39)
[2018-12-27] MEDS: NICOTINE 21MG/24HR PATCH TRANSDERM SCH (08:39)
[2018-12-27] MEDS: ASPIRIN 81 MG PO SCH (08:39)
[2018-12-27] MEDS: LISINOPRIL 5 MG TAB PO SCH ×3 (08:39→21:20)
[2018-12-27] MEDS: METOPROLOL TARTRATE 25 MG TAB PO SCH ×2 (08:39→21:15)
[2018-12-27] MEDS: POTASSIUM CHLORIDE ER 20 MEQ TAB.ER PO SCH ×2 (08:39→12:33)
[2018-12-27] MEDS: KETOTIFEN 0.025% OPHTH DROPS 5 ML BTL BOTH EYES SCH ×2 (08:39→21:15)
[2018-12-27] MEDS: predniSONE 20 MG TAB PO SCH (08:39)
[2018-12-27] MEDS: ALPRAZolam 0.25 MG TAB PO PRN (08:39)
[2018-12-27] MEDS: ATORVASTATIN 40 MG TAB PO SCH (08:39)
[2018-12-27] MEDS: HYDROcodone/APAP 5-325MG 1 EACH TAB PO PRN ×2 (10:39→18:38)
[2018-12-27] MEDS ORDERED: POTASSIUM CHLORIDE 20 MEQ in WATER FOR INJECTION 1 100ML.BAG IVPB STA (11:27)
--- NOTE | 2018-12-27 11:27 | P.PN ---
Subjective Progress Note Date: 12/25/18 Principal diagnosis: Acute COPD exacerbation Elevated troponin level 58-year-old admitted for COPD exacerbation patient does have minimal troponin elevation because of which patient will undergo cardiac catheterization on his respiratory issues addressed and patient does have alcoholic withdrawal, his CIWA score is around 19 patient is receiving IV Ativan once his alcohol wit hdrawals are not better patient underwent cardiac catheterization patient will be on IV heparin until that. 12/25/2018 Patient is still having shortness of breath at rest. Otherwise patient is also being treated for alcohol withdrawal symptoms. No complaints of chest pain. No nausea vomiting or abdominal pain. Currently saturating well on oxygen with another cannula. Cardiology is following. Constitutional: Patient appears to be tested fatigued does have some tremor Cardio vascular: denied any chest pain, palpitations Gastrointestinal denied any nausea vomiting Pulmonary: Denied any shortness of breath cough Neurologic denied any new focal deficits All inpatient medications were reviewed and appropriate changes in these medications as dictated in the interval history and assessment and plan. Objective - Vital Signs Vital signs: Vital Signs Temp 98.7 F 12/25/18 16:00 Pulse 76 12/25/18 16:00 Resp 20 12/25/18 16:00 BP 169/82 12/25/18 16:00 Pulse Ox 93 L 12/25/18 16:00 Intake & Output 12/24/18 12/25/18 12/25/18 18:59 06:59 18:59 Intake Total 120 Output Total 600 200 600 Balance -600 -80 -600 Weight 83 kg Intake: Oral 120 Output: Urine 600 200 600 Other: Voiding Method Urinal Urinal # Voids 1 - Exam GENERAL: The patient is alert and oriented x3, not in any acute distress. Well developed, well nourished. HEENT: Pupils are round and equally reacting to light. EOMI. No scleral icterus. No conjunctival pallor. Normocephalic, atraumatic. No pharyngeal erythema. No thyromegaly. CARDIOVASCULAR: S1 and S2 present. No murmurs, rubs, or gallops. PULMONARY: Minimal expiratory wheezing on exam ABDOMEN: Soft, nontender, nondistended, normoactive bowel sounds. No palpable organomegaly. MUSCULOSKELETAL: No joint swelling or deformity. EXTREMITIES: No cyanosis, clubbing, or pedal edema. NEUROLOGICAL: Gross neurological examination did not reveal any focal deficits. SKIN: No rashes. - Labs CBC & Chem 7: 12/27/18 06:03 12/27/18 06:03 Labs: Abnormal Lab Results - Last 24 Hours (Table) 12/24/18 12/25/18 12/25/18 Range/Units 20:35 06:24 06:27 WBC 11.9 H (3.8-10.6) k/uL MCV 106.5 H (80.0-100.0) fL MCH 35.5 H (25.0-35.0) pg RDW 15.8 H (11.5-15.5) % Potassium (3.5-5.1) mmol/L Chloride (98-107) mmol/L Carbon Dioxide (22-30) mmol/L Creatinine (0.66-1.25) mg/dL Glucose (74-99) mg/dL POC Glucose (mg/dL) 144 H 115 H (75-99) mg/dL Calcium (8.4-10.2) mg/dL 12/25/18 12/25/18 12/25/18 Range/Units 06:27 11:28 17:03 WBC (3.8-10.6) k/uL MCV (80.0-100.0) fL MCH (25.0-35.0) pg RDW (11.5-15.5) % Potassium 3.2 L (3.5-5.1) mmol/L Chloride 95 L (98-107) mmol/L Carbon Dioxide 35 H (22-30) mmol/L Creatinine 0.56 L (0.66-1.25) mg/dL Glucose 115 H (74-99) mg/dL POC Glucose (mg/dL) 145 H 175 H (75-99) mg/dL Calcium 8.1 L (8.4-10.2) mg/dL Microbiology - Last 24 Hours (Table) 12/22/18 17:32 Blood Culture - Preliminary Blood No Growth after 48 hours Assessment and Plan Assessment: -Acute hypercapnic respiratory failure secondary to COPD exacerbation patient was started on inhaled steroids inhalational treatments as mentioned above. Along with systemic steroids. Wheezing improved today -Mildly elevated troponin most probably secondary to hypoxemia, cardiology evaluated the patient. The recommending cardiac catheterization -Chronic alcoholism with withdrawals patient is on Ativan CIWA protocol -Mild alcoholic hepatitis -Epigastric abdominal burning sensation seconded alcoholic gastritis gallbladder ultrasound did show sludge but no intervention is necessary and patient will be on proton pump inhibitor for this -Continued nicotine use excessive counseling was provided regarding this -Elevated serum bicarbonate secondary to contraction alkalosis Lasix will be discontinued patient may actually need IV fluids -Elevated d-dimer my suspicion is low and pretest probably for PE is low because of which CT angios the chest is not being ordered and his shortness of breath is secondary to COPD exacerbation Time with Patient: Greater than 30
--- NOTE | 2018-12-27 11:31 | P.PN ---
Subjective Progress Note Date: 12/26/18 Principal diagnosis: Acute COPD exacerbation Elevated troponin level 58-year-old admitted for COPD exacerbation patient does have minimal troponin elevation because of which patient will undergo cardiac catheterization on his respiratory issues addressed and patient does have alcoholic withdrawal, his CIWA score is around 19 patient is receiving IV Ativan once his alcohol wit hdrawals are not better patient underwent cardiac catheterization patient will be on IV heparin until that. 12/25/2018 Patient is still having shortness of breath at rest. Otherwise patient is also being treated for alcohol withdrawal symptoms. No complaints of chest pain. No nausea vomiting or abdominal pain. Currently saturating well on oxygen with another cannula. Cardiology is following. 12/26/2018 Patient is currently resting comfortably. Saturating well on nausea cannula. Being treated for alcohol withdrawal symptoms. Cardiology is following the at no evidence of arrhythmia in the telemetry monitoring. Patient is being continued on IV steroids and breathing treatments. 2-D echo cardiac exam showed his ejection fraction 55-60% and trace MR and mild TR. Cardiology was planning for cardiac catheterization. Otherwise percussion level is 2.9 today which is being replaced. No fever no chills. No headache or dizziness or lightheadedness. Constitutional: Patient appears to be resting comfortably. Tremor improved. Cardio vascular: denied any chest pain, palpitations Gastrointestinal denied any nausea vomiting Pulmonary: Denied any shortness of breath cough Neurologic denied any new focal deficits All inpatient medications were reviewed and appropriate changes in these medications as dictated in the interval history and assessment and plan. Objective - Vital Signs Vital signs: Vital Signs Temp 99.6 F 12/26/18 20:00 Pulse 80 12/26/18 20:29 Resp 17 12/26/18 20:00 BP 146/78 12/26/18 20:00 Pulse Ox 90 L 12/26/18 20:00 Intake & Output 12/26/18 12/26/18 12/27/18 06:59 18:59 06:59 Intake Total 240 360 Output Total 200 Balance 240 160 Weight 82.3 kg Intake: Oral 240 360 Output: Urine 200 Other: Voiding Method Urinal Urinal Urinal # Voids 2 1 0 # Bowel Movements 1 - Exam GENERAL: The patient is alert and oriented x3, not in any acute distress. Well developed, well nourished. HEENT: Pupils are round and equally reacting to light. EOMI. No scleral icterus. No conjunctival pallor. Normocephalic, atraumatic. No pharyngeal erythema. No thyromegaly. CARDIOVASCULAR: S1 and S2 present. No murmurs, rubs, or gallops. PULMONARY: Minimal expiratory wheezing on exam ABDOMEN: Soft, nontender, nondistended, normoactive bowel sounds. No palpable organomegaly. MUSCULOSKELETAL: No joint swelling or deformity. EXTREMITIES: No cyanosis, clubbing, or pedal edema. NEUROLOGICAL: Gross neurological examination did not reveal any focal deficits. SKIN: No rashes. - Labs CBC & Chem 7: 12/27/18 06:03 12/27/18 06:03 Labs: Abnormal Lab Results - Last 24 Hours (Table) 12/26/18 12/26/18 12/26/18 Range/Units 06:06 06:28 11:43 Sodium 136 L (137-145) mmol/L Potassium 2.9 L (3.5-5.1) mmol/L Chloride 95 L (98-107) mmol/L Carbon Dioxide 33 H (22-30) mmol/L Creatinine 0.54 L (0.66-1.25) mg/dL Glucose 164 H (74-99) mg/dL POC Glucose (mg/dL) 158 H 177 H (75-99) mg/dL Calcium 8.3 L (8.4-10.2) mg/dL 12/26/18 12/26/18 12/26/18 Range/Units 16:50 18:26 20:59 Sodium (137-145) mmol/L Potassium 3.3 L (3.5-5.1) mmol/L Chloride (98-107) mmol/L Carbon Dioxide (22-30) mmol/L Creatinine (0.66-1.25) mg/dL Glucose (74-99) mg/dL POC Glucose (mg/dL) 171 H 121 H (75-99) mg/dL Calcium (8.4-10.2) mg/dL Microbiology - Last 24 Hours (Table) 12/22/18 17:32 Blood Culture - Preliminary Blood No Growth after 96 hours Assessment and Plan Assessment: -Acute hypercapnic respiratory failure secondary to COPD exacerbation patient was started on inhaled steroids inhalational treatments as mentioned above. Along with systemic steroids. Wheezing improved today -Mildly elevated troponin most probably secondary to hypoxemia, cardiology evaluated the patient. Cardiology recommending cardiac catheterization -Chronic alcoholism with acute withdrawals patient is on Ativan CIWA protocol -Mild alcoholic hepatitis -Epigastric abdominal burning sensation seconded alcoholic gastritis gallbladder ultrasound did show sludge but no intervention is necessary and patient will be on proton pump inhibitor for this -Continued nicotine use excessive counseling was provided regarding this -Elevated serum bicarbonate secondary to contraction alkalosis Lasix will be discontinued.. -Elevated d-dimer my suspicion is low and pretest probably for PE is low because of which CT angios the chest is not being ordered and his shortness of breath is secondary to COPD exacerbation Time with Patient: Greater than 30
--- NOTE | 2018-12-27 11:39 | PN ---
PROGRESS NOTE Mr. Shah is a 58-year-old male with known history of chronic tobacco and alcohol intake, who presented with respiratory infection with mild troponin elevation and T- wave inversion anteriorly. He had no evidence of segmental wall motion abnormality. Because of his EKG changes, the plan was initially to proceed with cardiac catheterization, but the patient subsequently had evidence of alcohol withdrawal. He continues to be sedated, but appears to be more alert. He is denying any chest pain. No dizziness. No palpitation. His breathing has been stable. He denies any nausea. He continues to be on aspirin 81 mg daily, Lipitor 40 mg daily, lisinopril 5 mg twice a day, metoprolol tartrate 25 mg twice a day. PHYSICAL EXAMINATION: Blood pressure 148/70 with a heart rate in the 80s. Lungs with decreased air exchange, but no wheezes. HEART: Regular rate and rhythm S1, S2. No S3. No rub. ABDOMEN: Soft and nontender. EXTREMITIES: No edema. LAB DATA: Lab data revealed a BUN and creatinine of 8 and 0.55, potassium 3.1, hemoglobin of 16.8. IMPRESSION: 1. Alcohol withdrawal. 2. Tracheobronchitis with chronic tobacco use. 3. Minimal troponin elevation with T-wave inversion anteriorly. Rule out ruptured plaque. The patient has no chest discomfort. He has no segmental wall small motion abnormality. 4. History of hypertension. RECOMMENDATIONS: From the cardiac standpoint, we will continue present therapy. We will hold on the cardiac catheterization at this point. We will replace his potassium and depending on his progress, further recommendations will be made. MMODL / IJN: [id number] /
[2018-12-27 11:59] LABS: Glucose,Whole Blood 160 mg/dL (75-99)
[2018-12-27 16:54] LABS: Glucose,Whole Blood 207 mg/dL (75-99)
[2018-12-27] MEDS: ALPRAZolam 0.5 MG TAB PO PRN (18:39)
[2018-12-27 21:09] LABS: Glucose,Whole Blood 128 mg/dL (75-99)
[2018-12-28] MEDS: HYDROcodone/APAP 5-325MG 1 EACH TAB PO PRN ×3 (01:41→14:36)
[2018-12-28 06:21] LABS: Basophils % (A) 0 %; Eosinophils # (A) 0.1 k/uL (0-0.7); Eosinophils % (A) 1 %; HCT 48.8 % (39.0-53.0); Lymphocytes # (A) 2.5 k/uL (1.0-4.8); Lymphocytes % (A) 20 %; MCH 35.1 pg (25.0-35.0); MCHC 32.9 g/dL (31.0-37.0); MCV 106.9 fL (80.0-100.0); Macrocytosis Moderate; Mean Platelet Volume 8.6; Monocytes # (A) 0.9 k/uL (0-1.0); Monocytes % (A) 7 %; Neutrophils # (A) 8.6 k/uL (1.3-7.7); Neutrophils % (A) 70 %; Platelet Count 114 k/uL (150-450); RBC 4.56 m/uL (4.30-5.90); RDW 15.5 % (11.5-15.5); WBC 12.3 k/uL (3.8-10.6)
[2018-12-28 06:22] LABS: African American GFR (CKD) >90 (>60 ml/min/1.73 sqM); Anion Gap 5 mmol/L; Blood Urea Nitrogen 10 mg/dL (9-20); Calcium 7.8 mg/dL (8.4-10.2); Carbon Dioxide 33 mmol/L (22-30); Chloride 98 mmol/L (98-107); Glucose 113 mg/dL (74-99); Potassium 3.7 mmol/L (3.5-5.1); Sodium 136 mmol/L (137-145)
[2018-12-28 06:23] LABS: Glucose,Whole Blood 136 mg/dL (75-99)
[2018-12-28] MEDS: INSULIN ASPART (NovoLOG) 100 UNIT/ML VIAL SQ SCH ×4 (06:45→21:38)
[2018-12-28] MEDS: THIAMINE 100 MG TAB PO SCH ×2 (06:45→17:46)
[2018-12-28] MEDS: predniSONE 20 MG TAB PO SCH (08:38)
[2018-12-28] MEDS: LISINOPRIL 5 MG TAB PO SCH (08:38)
[2018-12-28] MEDS: ATORVASTATIN 40 MG TAB PO SCH (08:38)
[2018-12-28] MEDS: PANTOPRAZOLE 40 MG TABLET PO SCH (08:38)
[2018-12-28] MEDS: METOPROLOL TARTRATE 25 MG TAB PO SCH (08:38)
[2018-12-28] MEDS: NICOTINE 21MG/24HR PATCH TRANSDERM SCH (08:38)
[2018-12-28] MEDS: ALPRAZolam 0.25 MG TAB PO PRN (08:39)
[2018-12-28] MEDS: ASPIRIN 81 MG PO SCH (08:39)
[2018-12-28] MEDS: KETOTIFEN 0.025% OPHTH DROPS 5 ML BTL BOTH EYES SCH ×2 (08:42→21:38)
--- NOTE | 2018-12-28 11:53 | P.PN ---
Subjective Progress Note Date: 12/28/18 This is a 58-year-old gentleman with no documented history of hypertension, nondiabetic, no hyperlipidemia, he smokes at least one pack of cigarettes per day and states that he drinks alcohol on a daily basis. He denies any emphysema, asthma, or COPD however the documentation in the medical record suggests that the patient has a history of COPD. He went to see his primary care doctor because of worsening and difficulty in breathing over the past one month or so, he was advised to come to the hospital for further evaluation and treatment. Patient denies any recent fever or chills, he does have a cough however he states is nonproductive. Patient also has noticed some mild swelling in his bilateral lower extremities. Chest x-ray on presentation here did not reveal any acute cardiopulmonary pleural process, a few scattered sub-nodular [place] were noted, likely granulomas, but a three-month follow-up CT has been recommended. EKG on presentation here shows a normal sinus rhythm, with anterior ST-T wave changes and small Q waves noted in the inferior leads. Blood pressure on arrival here 157/88 with a heart rate of 80, 86% on room air, temperature 99.0. This morning's blood pressure 125/70, heart rate in the 90s, temperature 98.6, 98% on 3 L of oxygen. White blood cell count 9.2, hemoglobin 17.6, platelet count 175. Sodium 137, potassium 4.0, BUN 9 and creatinine 0.5. BNP level 1890. Troponins 0.176, 0.148. At the time of my examination this morning, the patient is lying flat in bed, he denies any shortness of breath, he does have a congested cough this morning. 12/28/2018 Patient seen and examined this morning, his is at his bedside. Answering questions appropriately. Denies any chest discomfort. Blood pressure 154/78, heart rate in the 80s, 95% on room air. White blood cell count 12.3, hemoglobin 16, platelet count 114. Sodium 136, potassium 3.7, BUN 10 and creatinine 0.6. Magnesium level today is 1.2. Objective - Vital Signs Vital signs: Vital Signs Temp 98.0 F 12/28/18 08:00 Pulse 78 12/28/18 08:00 Resp 18 12/28/18 08:00 BP 184/94 12/28/18 08:00 Pulse Ox 94 L 12/28/18 08:00 Intake & Output 12/27/18 12/28/18 12/28/18 18:59 06:59 18:59 Intake Total 1330 1000 250 Balance 1330 1000 250 Weight 83 kg Intake: Oral 1330 1000 250 Other: Voiding Method Urinal Toilet Toilet # Voids 1 2 - Exam PHYSICAL EXAMINATION: GENERAL: 78-year-old gentleman in no acute distress at the time of my examination HEENT: Head is atraumatic, normocephalic. Pupils equal, round. Sclera anicteric. Conjunctiva are clear. Mucous membranes of the mouth are moist. Neck is supple. There is no elevated jugular venous pressure. No carotid bruit is heard. HEART EXAMINATION: Heart S1, S2 normal. No murmur or gallop heard. CHEST EXAMINATION: Lungs reveal some scattered rhonchi throughout, mild wheezing ABDOMEN: Soft, nontender. Bowel sounds are heard. No organomegaly noted. EXTREMITIES: 2+ peripheral pulses with no evidence of peripheral edema and no calf tenderness noted. NEUROLOGIC patient is awake, alert and oriented 3 . . - Labs CBC & Chem 7: 12/28/18 05:47 12/28/18 05:47 Labs: Abnormal Lab Results - Last 24 Hours (Table) 12/27/18 12/27/18 12/27/18 Range/Units 11:46 16:46 21:07 WBC (3.8-10.6) k/uL MCV (80.0-100.0) fL MCH (25.0-35.0) pg Plt Count (150-450) k/uL Neutrophils # (1.3-7.7) k/uL Sodium (137-145) mmol/L Carbon Dioxide (22-30) mmol/L Creatinine (0.66-1.25) mg/dL Glucose (74-99) mg/dL POC Glucose (mg/dL) 160 H 207 H 128 H (75-99) mg/dL Calcium (8.4-10.2) mg/dL Magnesium (1.6-2.3) mg/dL 12/28/18 12/28/18 12/28/18 Range/Units 05:47 05:47 05:47 WBC 12.3 H (3.8-10.6) k/uL MCV 106.9 H (80.0-100.0) fL MCH 35.1 H (25.0-35.0) pg Plt Count 114 L (150-450) k/uL Neutrophils # 8.6 H (1.3-7.7) k/uL Sodium 136 L (137-145) mmol/L Carbon Dioxide 33 H (22-30) mmol/L Creatinine 0.64 L (0.66-1.25) mg/dL Glucose 113 H (74-99) mg/dL POC Glucose (mg/dL) (75-99) mg/dL Calcium 7.8 L (8.4-10.2) mg/dL Magnesium 1.2 L (1.6-2.3) mg/dL 12/28/18 Range/Units 06:21 WBC (3.8-10.6) k/uL MCV (80.0-100.0) fL MCH (25.0-35.0) pg Plt Count (150-450) k/uL Neutrophils # (1.3-7.7) k/uL Sodium (137-145) mmol/L Carbon Dioxide (22-30) mmol/L Creatinine (0.66-1.25) mg/dL Glucose (74-99) mg/dL POC Glucose (mg/dL) 136 H (75-99) mg/dL Calcium (8.4-10.2) mg/dL Magnesium (1.6-2.3) mg/dL Microbiology - Last 24 Hours (Table) 12/22/18 17:32 Blood Culture - Preliminary Blood No Growth after 120 hours Assessment and Plan Plan: Assessment and plan #1 symptoms of progressively worsening shortness of breath, element of congestive cardiac failure with elevated BNP level, diastolic acute on chronic . Possible bronchitis or COPD exacerbation. #2 cardiac risk factors negative for hypertension, diabetes, hyperlipidemia, no family history of premature coronary artery disease #3 nicotine dependence #4 non [place] troponin elevation likely secondary to hypoxia #5 elevated bilirubin and AST Plan Cardiology's perspective, we will defer on doing any heart catheterization at this time. She will be followed up in the office post discharge. He has been counseled strongly regarding the importance of nicotine and EtOH cessation, before any further cardiac workup will be performed. DNP note has been reviewed, I agree with a documented findings and plan of care. Patient was seen and examined.
[2018-12-28 12:04] LABS: Glucose,Whole Blood 186 mg/dL (75-99)
[2018-12-28] MEDS: MAGNESIUM SULFATE-D5W PMX 1 GM in DEXTROSE/WATER 1 100ML.BAG IVPB SCH ×2 (13:41→14:37)
[2018-12-28] MEDS: BUDESONIDE 1 MG/2 ML NEBU INHALATION SCH ×2 (15:49→19:39)
[2018-12-28] MEDS: IPRATROPIUM-ALBUTEROL 3 ML NEB INHALATION SCH ×3 (15:54→23:40)
[2018-12-28 17:29] LABS: Glucose,Whole Blood 154 mg/dL (75-99)
--- NOTE | 2018-12-28 17:34 | P.PN ---
Subjective Progress Note Date: 12/27/18 Principal diagnosis: Acute COPD exacerbation Elevated troponin level 58-year-old admitted for COPD exacerbation patient does have minimal troponin elevation because of which patient will undergo cardiac catheterization on his respiratory issues addressed and patient does have alcoholic withdrawal, his CIWA score is around 19 patient is receiving IV Ativan once his alcohol wit hdrawals are not better patient underwent cardiac catheterization patient will be on IV heparin until that. 12/25/2018 Patient is still having shortness of breath at rest. Otherwise patient is also being treated for alcohol withdrawal symptoms. No complaints of chest pain. No nausea vomiting or abdominal pain. Currently saturating well on oxygen with another cannula. Cardiology is following. 12/26/2018 Patient is currently resting comfortably. Saturating well on nausea cannula. Being treated for alcohol withdrawal symptoms. Cardiology is following the at no evidence of arrhythmia in the telemetry monitoring. Patient is being continued on IV steroids and breathing treatments. 2-D echo cardiac exam showed his ejection fraction 55-60% and trace MR and mild TR. Cardiology was planning for cardiac catheterization. Otherwise percussion level is 2.9 today which is being replaced. No fever no chills. No headache or dizziness or lightheadedness. 12/27/2018 Patient is currently resting comfortably and is saturating well on nasal cannula oxygen. Patient is still having hand tremors. Breathing status is improving slowly. Patient is being continued on prednisone and breathing treatments. Cardiology is following. Anticipate discharge in next 1-2 days with final cardiology recommendations. Constitutional: Patient appears to be resting comfortably. Tremor improved. Cardio vascular: denied any chest pain, palpitations Gastrointestinal denied any nausea vomiting Pulmonary: Denied any shortness of breath cough Neurologic denied any new focal deficits All inpatient medications were reviewed and appropriate changes in these medications as dictated in the interval history and assessment and plan. Objective - Vital Signs Vital signs: Vital Signs Temp 98.8 F 12/27/18 15:41 Pulse 84 12/27/18 15:41 Resp 18 12/27/18 15:41 BP 121/59 12/27/18 15:41 Pulse Ox 94 L 12/27/18 15:41 Intake & Output 12/26/18 12/27/18 12/27/18 18:59 06:59 18:59 Intake Total 360 1000 970 Output Total 200 Balance 160 1000 970 Weight 83 kg Intake: Oral 360 1000 970 Output: Urine 200 Other: Voiding Method Urinal Urinal Urinal # Voids 1 2 1 # Bowel Movements 1 - Exam GENERAL: The patient is alert and oriented x3, not in any acute distress. Well developed, well nourished. HEENT: Pupils are round and equally reacting to light. EOMI. No scleral icterus. No conjunctival pallor. Normocephalic, atraumatic. No pharyngeal erythema. No thyromegaly. CARDIOVASCULAR: S1 and S2 present. No murmurs, rubs, or gallops. PULMONARY: Minimal expiratory wheezing on exam. No crackles. No rhonchi. Nonlabored. ABDOMEN: Soft, nontender, nondistended, normoactive bowel sounds. No palpable organomegaly. MUSCULOSKELETAL: No joint swelling or deformity. EXTREMITIES: No cyanosis, clubbing, or pedal edema. NEUROLOGICAL: Gross neurological examination did not reveal any focal deficits. SKIN: No rashes. - Labs CBC & Chem 7: 12/28/18 05:47 12/28/18 05:47 Labs: Abnormal Lab Results - Last 24 Hours (Table) 12/26/18 12/26/18 12/26/18 Range/Units 16:50 18:26 20:59 WBC (3.8-10.6) k/uL MCV (80.0-100.0) fL MCH (25.0-35.0) pg RDW (11.5-15.5) % Plt Count (150-450) k/uL Neutrophils # (1.3-7.7) k/uL Potassium 3.3 L (3.5-5.1) mmol/L Chloride (98-107) mmol/L Carbon Dioxide (22-30) mmol/L BUN (9-20) mg/dL Creatinine (0.66-1.25) mg/dL Glucose (74-99) mg/dL POC Glucose (mg/dL) 171 H 121 H (75-99) mg/dL Calcium (8.4-10.2) mg/dL 12/27/18 12/27/18 12/27/18 Range/Units 06:03 06:03 06:21 WBC 12.5 H (3.8-10.6) k/uL MCV 105.6 H (80.0-100.0) fL MCH 35.7 H (25.0-35.0) pg RDW 15.8 H (11.5-15.5) % Plt Count 126 L (150-450) k/uL Neutrophils # 8.9 H (1.3-7.7) k/uL Potassium 3.1 L (3.5-5.1) mmol/L Chloride 97 L (98-107) mmol/L Carbon Dioxide 31 H (22-30) mmol/L BUN 8 L (9-20) mg/dL Creatinine 0.55 L (0.66-1.25) mg/dL Glucose 123 H (74-99) mg/dL POC Glucose (mg/dL) 154 H (75-99) mg/dL Calcium 8.0 L (8.4-10.2) mg/dL 12/27/18 Range/Units 11:46 WBC (3.8-10.6) k/uL MCV (80.0-100.0) fL MCH (25.0-35.0) pg RDW (11.5-15.5) % Plt Count (150-450) k/uL Neutrophils # (1.3-7.7) k/uL Potassium (3.5-5.1) mmol/L Chloride (98-107) mmol/L Carbon Dioxide (22-30) mmol/L BUN (9-20) mg/dL Creatinine (0.66-1.25) mg/dL Glucose (74-99) mg/dL POC Glucose (mg/dL) 160 H (75-99) mg/dL Calcium (8.4-10.2) mg/dL Microbiology - Last 24 Hours (Table) 12/22/18 17:32 Blood Culture - Preliminary Blood No Growth after 96 hours Assessment and Plan Assessment: -Acute hypercapnic respiratory failure secondary to COPD exacerbation patient was started on inhaled steroids inhalational treatments as mentioned above. Along with systemic steroids. Wheezing improved -Mildly elevated troponin most probably secondary to hypoxemia, cardiology evaluated the patient. Cardiology recommending cardiac catheterization -Chronic alcoholism with acute withdrawals patient is on Ativan CIWA protocol -Mild alcoholic hepatitis -Epigastric abdominal burning sensation seconded alcoholic gastritis gallbladder ultrasound did show sludge but no intervention is necessary and patient will be on proton pump inhibitor for this -Continued nicotine use excessive counseling was provided regarding this -Elevated serum bicarbonate secondary to contraction alkalosis Lasix will be discontinued.. -Elevated d-dimer my suspicion is low and pretest probably for PE is low because of which CT angios the chest is not being ordered and his shortness of breath is secondary to COPD exacerbation Time with Patient: Greater than 30
[2018-12-28] MEDS: MAGNESIUM OXIDE 400 MG TAB PO SCH ×3 (17:46→20:34)
[2018-12-28] MEDS: ENOXAPARIN 40 MG/0.4 ML SYRINGE SQ SCH (17:47)
--- NOTE | 2018-12-28 20:19 | P.PN ---
Progress Note - Text Progress Note Date: 12/28/18 Presenting complaint: Shortness of breath Interval history: Admitted with COPD exacerbation. Patient is a smoker. Per cardiology not for any intervention this admission. Today-patient is feeling a bit better. Still short of breath. Up to the bathroom. Did tolerate her diet. Some wheezing. Some cough. Though feeling better since admission. Review of systems: Was done for constitutional, cardiovascular, GI, pulmonary. relevant finding as above Active Medications Acetaminophen (Tylenol Tab) 500 mg PO Q6HR PRN PRN Reason: Fever and/ or MILD Pain Last Admin: 12/27/18 06:33 Dose: 500 mg Documented by: Hydrocodone Bitart/Acetaminophen ([place] 5-325) 1 each PO Q6HR PRN PRN Reason: MODERATE Pain Last Admin: 12/28/18 14:36 Dose: 1 each Documented by: Albuterol/Ipratropium (Duoneb 0.5 Mg-3 Mg/3 Ml Soln) 3 ml INHALATION RT-Q4H [facility] Last Admin: 12/28/18 19:39 Dose: 3 ml Documented by: Alprazolam (Xanax) 0.25 mg PO Q6HR PRN PRN Reason: Mild Anxiety Last Admin: 12/28/18 08:39 Dose: 0.25 mg Documented by: Alprazolam (Xanax) 0.5 mg PO Q6HR PRN PRN Reason: Moderate Anxiety Last Admin: 12/27/18 18:39 Dose: 0.5 mg Documented by: Aspirin (Aspirin) 81 mg PO DAILY [facility] Last Admin: 12/28/18 08:39 Dose: 81 mg Documented by: Atorvastatin Calcium (Lipitor) 40 mg PO DAILY [facility] Last Admin: 12/28/18 08:38 Dose: 40 mg Documented by: Budesonide (Pulmicort) 1 mg INHALATION RT-BID [facility] Last Admin: 12/28/18 19:39 Dose: 1 mg Documented by: Diphenoxylate HCl/Atropine (Lomotil) 1 each PO Q6HR PRN PRN Reason: Diarrhea Last Admin: 12/26/18 16:24 Dose: 1 each Documented by: Enoxaparin Sodium (Lovenox) 40 mg SQ DAILY [facility] Last Admin: 12/28/18 17:47 Dose: 40 mg Documented by: Insulin Aspart (Novolog) 0 unit SQ [facility]; Protocol Last Admin: 12/28/18 17:47 Dose: 2 unit Documented by: Ketotifen Fumarate (Zaditor) 1 drops BOTH EYES BID [facility] Last Admin: 12/28/18 08:42 Dose: 1 drops Documented by: Lisinopril (Zestril) 5 mg PO BID [facility] Last Admin: 12/28/18 08:38 Dose: 5 mg Documented by: Lorazepam (Ativan) 1 mg IV Q2HR PRN PRN Reason: CIWA 8 or 9 Last Admin: 12/26/18 20:06 Dose: 1 mg Documented by: Lorazepam (Ativan) 1 mg IV Q1HR PRN PRN Reason: CIWA 10 to 15 Last Admin: 12/25/18 12:33 Dose: 1 mg Documented by: Magnesium Oxide (Mag-Ox) 400 mg PO TID [facility] Last Admin: 12/28/18 17:48 Dose: Not Given Documented by: Metoprolol Tartrate (Lopressor) 50 mg PO BID [facility] Miscellaneous Information (Potassium Per Protocol) 1 each MISCELLANE DAILY PRN; Protocol PRN Reason: Per Protocol Nicotine (Habitrol 21mg/24hr Patch) 1 patch TRANSDERM DAILY [facility] Last Admin: 12/28/18 08:38 Dose: 1 patch Documented by: Nitroglycerin (Nitrostat) 0.4 mg SUBLINGUAL Q5M PRN PRN Reason: Chest Pain Pantoprazole Sodium (Protonix) 40 mg PO DAILY [facility] Last Admin: 12/28/18 08:38 Dose: 40 mg Documented by: Prednisone () 40 mg PO DAILY [facility] Last Admin: 12/28/18 08:38 Dose: 40 mg Documented by: Thiamine HCl (Vitamin B-1) 100 mg PO BID-W/MEALS [facility] Last Admin: 12/28/18 17:46 Dose: 100 mg Documented by: On examination: VITAL SIGNS: 98.7, 80, 16, 170/81, 90% on room air GENERAL APPEARANCE: Sitting at the edge of bed, tired HEENT: Normal external appearance of nose and ear. Oral cavity normal EYES: Pupils equal. Conjunctiva normal. NECK: JVD not raised. Mass not palpable. RESPIRATORY: Respiratory effort increased, diminished breath sound expiratory wheezing, prolonged. CARDIOVASCULAR: First and second sounds normal. No edema. ABDOMEN: Soft. Liver and spleen not palpable. No tenderness. No mass palpable. PSYCHIATRY: Alert and oriented x3. Mood and affect normal. INVESTIGATIONS, reviewed in the clinical context: White count 12.3, hemoglobin 16, platelets 114, potassium 3.7, creatinine 0.64 Magnesium 1.2 Other investigations: VQ scan-low probability for PE Abdominal ultrasound-probable hepatic steatosis 2-D echo-EF 55-60% Assessment: -Acute severe COPD exacerbation in a current smoker -Acute hypercapnic respiratory failure secondary to COPD exacerbation -Troponin elevation due to hemodynamic mismatch, not acute coronary syndrome -Chronic alcohol use -Alcoholic hepatitis -Chronic nicotine dependence Plan: Care was discussed in length with the patient and at the bedside. We will increased frequency nebulized bronchodilator. Add inhaled steroids. Continue with oral steroids. Encouraged patient is to ambulate. Hoping patient can be discharged in 24 hours. Cardiology will do further workup as an outpatient.
[2018-12-28] MEDS: ALPRAZolam 0.5 MG TAB PO PRN (20:34)
[2018-12-28] MEDS: METOPROLOL TARTRATE 50 MG TAB PO SCH (20:34)
[2018-12-28 21:19] LABS: Glucose,Whole Blood 172 mg/dL (75-99)
[2018-12-29] MEDS: HYDROcodone/APAP 5-325MG 1 EACH TAB PO PRN ×2 (00:47→09:47)
[2018-12-29] MEDS: IPRATROPIUM-ALBUTEROL 3 ML NEB INHALATION SCH ×3 (03:22→10:59)
[2018-12-29] MEDS: ALPRAZolam 0.5 MG TAB PO PRN (04:46)
[2018-12-29 06:09] LABS: Glucose,Whole Blood 128 mg/dL (75-99)
[2018-12-29] MEDS: INSULIN ASPART (NovoLOG) 100 UNIT/ML VIAL SQ SCH ×2 (06:32→12:31)
[2018-12-29] MEDS: THIAMINE 100 MG TAB PO SCH (06:38)
[2018-12-29] MEDS: BUDESONIDE 1 MG/2 ML NEBU INHALATION SCH (07:27)
[2018-12-29 07:55] LABS: Magnesium 1.8 mg/dL (1.6-2.3); Potassium 3.4 mmol/L (3.5-5.1)
[2018-12-29] MEDS: predniSONE 20 MG TAB PO SCH (09:34)
[2018-12-29] MEDS: ENOXAPARIN 40 MG/0.4 ML SYRINGE SQ SCH (09:34)
[2018-12-29] MEDS: ASPIRIN 81 MG PO SCH (09:35)
[2018-12-29] MEDS: KETOTIFEN 0.025% OPHTH DROPS 5 ML BTL BOTH EYES SCH (09:35)
[2018-12-29] MEDS: PANTOPRAZOLE 40 MG TABLET PO SCH (09:35)
[2018-12-29] MEDS: LISINOPRIL 5 MG TAB PO SCH (09:35)
[2018-12-29] MEDS: ATORVASTATIN 40 MG TAB PO SCH (09:35)
[2018-12-29] MEDS: METOPROLOL TARTRATE 50 MG TAB PO SCH (09:35)
[2018-12-29] MEDS: NICOTINE 21MG/24HR PATCH TRANSDERM SCH (09:36)
[2018-12-29] MEDS: MAGNESIUM OXIDE 400 MG TAB PO SCH (09:36)
[2018-12-29 11:05] VITALS: BMI 27.2
[2018-12-29 11:38] VITALS: RESP 18; TEMP 98.5
[2018-12-29 11:41] LABS: Glucose,Whole Blood 179 mg/dL (75-99)
[2018-12-29] MEDS ORDERED: POTASSIUM CHLORIDE ER 20 MEQ TAB.ER PO SCH (12:00)
[2018-12-29 12:01] VITALS: BP 156/86; PULSE 74
[2018-12-29] MEDS ORDERED: LISINOPRIL-HCTZ 10-12.5 MG 1 EACH TAB PO STA (12:03)
[2018-12-29] MEDS ORDERED: POTASSIUM CHLORIDE ER 20 MEQ TAB.ER PO STA (12:05)
--- NOTE | 2018-12-29 12:47 | P.PN ---
Subjective Progress Note Date: 12/29/18 This is a 58-year-old gentleman with no documented history of hypertension, nondiabetic, no hyperlipidemia, he smokes at least one pack of cigarettes per day and states that he drinks alcohol on a daily basis. He denies any emphysema, asthma, or COPD however the documentation in the medical record suggests that the patient has a history of COPD. He went to see his primary care doctor because of worsening and difficulty in breathing over the past one month or so, he was advised to come to the hospital for further evaluation and treatment. Patient denies any recent fever or chills, he does have a cough however he states is nonproductive. Patient also has noticed some mild swelling in his bilateral lower extremities. Chest x-ray on presentation here did not reveal any acute cardiopulmonary pleural process, a few scattered sub-nodular [place] were noted, likely granulomas, but a three-month follow-up CT has been recommended. EKG on presentation here shows a normal sinus rhythm, with anterior ST-T wave changes and small Q waves noted in the inferior leads. Blood pressure on arrival here 157/88 with a heart rate of 80, 86% on room air, temperature 99.0. This morning's blood pressure 125/70, heart rate in the 90s, temperature 98.6, 98% on 3 L of oxygen. White blood cell count 9.2, hemoglobin 17.6, platelet count 175. Sodium 137, potassium 4.0, BUN 9 and creatinine 0.5. BNP level 1890. Troponins 0.176, 0.148. At the time of my examination this morning, the patient is lying flat in bed, he denies any shortness of breath, he does have a congested cough this morning. 12/28/2018 Patient seen and examined this morning, his is at his bedside. Answering questions appropriately. Denies any chest discomfort. Blood pressure 154/78, heart rate in the 80s, 95% on room air. White blood cell count 12.3, hemoglobin 16, platelet count 114. Sodium 136, potassium 3.7, BUN 10 and creatinine 0.6. Magnesium level today is 1.2. 12/29/2018 Patient seen and examined this morning, overall feels well, denies any chest discomfort, hemodynamically he is stable. His potassium today came back at 3.4, which we will replace. Objective - Vital Signs Vital signs: Vital Signs Temp 98.5 F 12/29/18 08:00 Pulse 74 12/29/18 11:58 Resp 18 12/29/18 11:58 BP 156/86 12/29/18 11:58 Pulse Ox 95 12/29/18 11:58 Intake & Output 12/28/18 12/29/18 12/29/18 18:59 06:59 18:59 Intake Total 730 400 600 Balance 730 400 600 Weight 83.6 kg 83.6 kg Intake: Oral 730 400 600 Other: Voiding Method Toilet Toilet # Voids 2 - Exam PHYSICAL EXAMINATION: GENERAL: 78-year-old gentleman in no acute distress at the time of my examination HEENT: Head is atraumatic, normocephalic. Pupils equal, round. Sclera ani cteric. Conjunctiva are clear. Mucous membranes of the mouth are moist. Neck is supple. There is no elevated jugular venous pressure. No carotid bruit is heard. HEART EXAMINATION: Heart S1, S2 normal. No murmur or gallop heard. CHEST EXAMINATION: Lungs reveal some scattered rhonchi throughout, mild wheezing ABDOMEN: Soft, nontender. Bowel sounds are heard. No organomegaly noted. EXTREMITIES: 2+ peripheral pulses with no evidence of peripheral edema and no calf tenderness noted. NEUROLOGIC patient is awake, alert and oriented 3 . . - Labs CBC & Chem 7: 12/28/18 05:47 12/29/18 06:13 Labs: Abnormal Lab Results - Last 24 Hours (Table) 12/28/18 12/28/18 12/29/18 Range/Units 16:57 21:18 06:08 Potassium (3.5-5.1) mmol/L POC Glucose (mg/dL) 154 H 172 H 128 H (75-99) mg/dL 12/29/18 12/29/18 Range/Units 06:13 11:31 Potassium 3.4 L (3.5-5.1) mmol/L POC Glucose (mg/dL) 179 H (75-99) mg/dL Microbiology - Last 24 Hours (Table) 12/22/18 17:32 Blood Culture - Final Blood No Growth after 144 hours Assessment and Plan Plan: Assessment and plan #1 symptoms of progressively worsening shortness of breath, element of congestive cardiac failure with elevated BNP level, diastolic acute on chronic . Possible bronchitis or COPD exacerbation. #2 cardiac risk factors negative for hypertension, diabetes, hyperlipidemia, no family history of premature coronary artery disease #3 nicotine dependence #4 non OR troponin elevation likely secondary to hypoxia #5 elevated bilirubin and AST Plan Cardiology's perspective, we will defer on doing any heart catheterization at this time. Patient will be followed up in the office post discharge. He has been counseled strongly regarding the importance of nicotine and EtOH cessation, before any further cardiac workup will be performed. DNP note has been reviewed, I agree with a documented findings and plan of care. Patient was seen and examined.
[2018-12-29] MEDS ORDERED: POTASSIUM CHLORIDE ER 20 MEQ TAB.ER PO ONE (13:15)
--- NOTE | 2018-12-30 00:23 | P.DS ---
Providers Date of admission: 12/22/18 18:52 Expected date of discharge: 12/29/18 Attending physician: Julio C Hendricks Consults: 12/22/18 18:52 Consult Physician Routine Consulting Provider: [facility] Consult Reason/Comments: Non-STEMI Do you want consulting provider notified?: Yes Primary care physician: Gabo Harris [facility] Course: Hospital course: Admitted with shortness of breath. [place] to have COPD exacerbation. Patient is a smoker. Per cardiology not for any intervention this admission. Patient responded well to bronchodilator treatment. Steroids. Patient was advised against smoking. Discussed with the patient and poor.. Consultation: Dr. Box from cardiology On examination: VITAL SIGNS: 98.5, 79, 18, 1 5686, 95% room air GENERAL APPEARANCE: Sitting at the edge of bed, more comfortable HEENT: Normal external appearance of nose and ear. Oral cavity normal EYES: Pupils equal. Conjunctiva normal. NECK: JVD not raised. Mass not palpable. RESPIRATORY: Respiratory effort increased, diminished breath sound expiratory wheezing, prolonged. CARDIOVASCULAR: First and second sounds normal. No edema. ABDOMEN: Soft. Liver and spleen not palpable. No tenderness. No mass palpable. PSYCHIATRY: Alert and oriented x3. Mood and affect normal. INVESTIGATIONS, reviewed in the clinical context: White count 12.3, hemoglobin 16, platelets 114, potassium 3.7, creatinine 0.64 Magnesium 1.2 Other investigations: VQ scan-low probability for PE Abdominal ultrasound-probable hepatic steatosis 2-D echo-EF 55-60% Assessment: -Acute severe COPD exacerbation in a current smoker -Acute hypercapnic respiratory failure secondary to COPD exacerbation -Troponin elevation due to hemodynamic mismatch, not acute coronary syndrome -Chronic alcohol use -Alcoholic hepatitis -Chronic nicotine dependence Disposition: Home Patient Condition at Discharge: Stable Plan - Discharge Summary New Discharge Prescriptions: New Aspirin 81 mg PO DAILY chew Ipratropium-Albuterol Nebulize [Duoneb 0.5 mg-3 mg/3 ml Soln] 3 ml INHALATION QID #120 ampul.neb Nicotine 21Mg/24Hr Patch [Habitrol] 1 patch TRANSDERM DAILY #14 patch Atorvastatin [Lipitor] 40 mg PO DAILY #30 tab Metoprolol Tartrate [Lopressor] 50 mg PO BID #60 tab Magnesium Oxide [Mag-Ox] 400 mg PO TID #14 tab Famotidine [Pepcid] 20 mg PO BID #60 tablet predniSONE 10 mg PO DAILY #30 tab Acetaminophen Tab [Tylenol] 500 mg PO Q6HR PRN tab PRN Reason: Fever and/ or MILD Pain Thiamine [Vitamin B-1] 100 mg PO BID-W/MEALS #60 tab Ketotifen 0.025% Ophth Soln [Zaditor] 1 drops BOTH EYES BID #1 ml Lisinopril-Hctz 10-12.5 mg [Zestoretic 10-12.5] 1 tab PO BID #60 tab Budesonide/Formoterol Fumarate [Symbicort 160-4.5 Mcg Inhaler] 1 puff INHALATION BID #1 inhaler Continue Ibuprofen [Motrin Ib] 400 mg PO Q6H PRN PRN Reason: Pain Discharge Medication List Ibuprofen [Motrin Ib] 400 mg PO Q6H PRN 12/22/18 [History] Acetaminophen Tab [Tylenol] 500 mg PO Q6HR PRN tab 12/29/18 [Rx] Aspirin 81 mg PO DAILY chew 12/29/18 [Rx] Atorvastatin [Lipitor] 40 mg PO DAILY #30 tab 12/29/18 [Rx] Budesonide/Formoterol Fumarate [Symbicort 160-4.5 Mcg Inhaler] 1 puff INHALATION BID #1 inhaler 12/29/18 [Rx] Famotidine [Pepcid] 20 mg PO BID #60 tablet 12/29/18 [Rx] Ipratropium-Albuterol Nebulize [Duoneb 0.5 mg-3 mg/3 ml Soln] 3 ml INHALATION QID #120 ampul.neb 12/29/18 [Rx] Ketotifen 0.025% Ophth Soln [Zaditor] 1 drops BOTH EYES BID #1 ml 12/29/18 [Rx] Lisinopril-Hctz 10-12.5 mg [Zestoretic 10-12.5] 1 tab PO BID #60 tab 12/29/18 [Rx] Magnesium Oxide [Mag-Ox] 400 mg PO TID #14 tab 12/29/18 [Rx] Metoprolol Tartrate [Lopressor] 50 mg PO BID #60 tab 12/29/18 [Rx] Nicotine 21Mg/24Hr Patch [Habitrol] 1 patch TRANSDERM DAILY #14 patch 12/29/18 [Rx] Thiamine [Vitamin B-1] 100 mg PO BID-W/MEALS #60 tab 12/29/18 [Rx] predniSONE 10 mg PO DAILY #30 tab 12/29/18 [Rx] Follow up Appointment(s)/Referral(s): Caitie Box MD [STAFF PHYSICIAN] - 1 Week (Spoke to core feeder. Office to call with appointment time) Gabo Harris MD [Primary Care Provider] - 01/07/19 10:30 am () Activity/Diet/Wound Care/Special Instructions: Labs-in 2 days. bring prescription Discharge Disposition: HOME SELF-CARE
== END 2018-12-29 14:26 | disposition home or self-care (01) | DRG 190 ==
LOC: EC 16:26 → 3SCARD 18:52
PROVIDERS: ADMIT Hospitalist; ATTEND Hospitalist
DX: J44.1 Chronic obstructive pulmonary disease with (acute) exacerbation (principal); J96.02 Acute respiratory failure with hypercapnia; I50.33 Acute on chronic diastolic (congestive) heart failure; F10.239 Alcohol dependence with withdrawal, unspecified; E87.3 Alkalosis; I11.0 Hypertensive heart disease with heart failure; K29.20 Alcoholic gastritis without bleeding; K70.10 Alcoholic hepatitis without ascites; R77.8 Other specified abnormalities of plasma proteins; F17.210 Nicotine dependence, cigarettes, uncomplicated; Z71.6 Tobacco abuse counseling; Z98.890 Other specified postprocedural states; Z87.39 Personal history of other diseases of the musculoskeletal system and connective tissue; Z83.6 Family history of other diseases of the respiratory system
CPT/HCPCS: 36415; 71046; 76705; 78582; 80048; 80053; 83036; 83735; 83880; 84132; 84484; 85025; 85027; 85379; 85610; 85730; 87040; 93005; 93306; 94640; 94760; 96365; 96375; 96376; 99291

== ENCOUNTER → 2019-03-05 | Outpatient (CLI) | payer OTHER ==
[2019-03-05 18:03] LABS: African American GFR (CKD) 39.3 (60.0-200.0); Albumin 4.7 g/dL (3.80-4.90); Albumin/Globulin Ratio 2.14 (1.60-3.17); Anion Gap 11.2 mmol/L (4.00-12.00); BUN/Creat Ratio 10.95 Ratio (12.00-20.00); Carbon Dioxide 31.8 mmol/L (21.6-31.8); Globulin 2.2 g/dL (1.6-3.3); LDL Cholesterol,Calculated 92.2 mg/dL (0.0-131.0); Potassium 4.7 mmol/L (3.5-5.5); Total Protein 6.9 g/dL (6.2-8.2); VLDL Calculation 27.8 mg/dL (5.00-40.00)
== END | disposition home or self-care (01) ==
LOC: LABWHC1 09:24
PROVIDERS: ATTEND Internal Medicine Interventional Cardiology
DX: E78.2 Mixed hyperlipidemia (principal)
CPT/HCPCS: 36415; 80053; 80061

== ENCOUNTER 2019-03-19 09:39 | Emergency (ER) | payer OTHER ==
[2019-03-19 09:50] VITALS: BP 153/77; PULSE 67; RESP 18; TEMP 98
--- NOTE | 2019-03-19 10:22 | ED ---
Lower Extremity Injury HPI - General Chief Complaint: Extremity Injury, Lower Stated Complaint: gout/trouble walking Time Seen by Provider: 03/19/19 09:51 Source: patient, RN notes reviewed, old records reviewed Mode of arrival: ambulatory Limitations: no limitations - History of Present Illness Initial Comments: 58-year-old male presents today for complaints of pain within the left foot. Patient reports that he has a history of gout. He lives she's been having a dobby looms pegger flareup for the past 3 days. Patient states that he has noticed that the foot has been red and swollen. He reports a tenderness touch of the left great toe. - Related Data Home Medications Medication Instructions Recorded Confirmed Ibuprofen [Motrin Ib] 400 mg PO Q6H PRN 12/22/18 12/22/18 Previous Rx's Medication Instructions Recorded Acetaminophen Tab [Tylenol] 500 mg PO Q6HR PRN tab 12/29/18 Aspirin 81 mg PO DAILY chew 12/29/18 Atorvastatin [Lipitor] 40 mg PO DAILY #30 tab 12/29/18 Budesonide/Formoterol Fumarate 1 puff INHALATION BID #1 inhaler 12/29/18 [Symbicort 160-4.5 Mcg Inhaler] Famotidine [Pepcid] 20 mg PO BID #60 tablet 12/29/18 Ipratropium-Albuterol Nebulize 3 ml INHALATION QID #120 ampul.neb 12/29/18 [Duoneb 0.5 mg-3 mg/3 ml Soln] Ketotifen 0.025% Ophth Soln 1 drops BOTH EYES BID #1 ml 12/29/18 [Zaditor] Lisinopril-Hctz 10-12.5 mg 1 tab PO BID #60 tab 12/29/18 [Zestoretic 10-12.5] Magnesium Oxide [Mag-Ox] 400 mg PO TID #14 tab 12/29/18 Metoprolol Tartrate [Lopressor] 50 mg PO BID #60 tab 12/29/18 Nicotine 21Mg/24Hr Patch [Habitrol] 1 patch TRANSDERM DAILY #14 patch 12/29/18 Thiamine [Vitamin B-1] 100 mg PO BID-W/MEALS #60 tab 12/29/18 predniSONE 10 mg PO DAILY #30 tab 12/29/18 Colchicine 0.6 mg PO DAILY #3 tablet 03/19/19 Allergies Allergy/AdvReac Type Severity Reaction Status Date / Time No Known Allergies Allergy Verified 12/22/18 16:58 Review of Systems ROS Statement: Those systems with pertinent positive or pertinent negative responses have been documented in the HPI. ROS Other: All systems not noted in ROS Statement are negative. Past Medical History Past Medical History: Asthma, COPD Additional Past Medical History / Comment(s): Past bilateral feet-gout. History of Any Multi-Drug Resistant Organisms: None Reported Past Surgical History: Orthopedic Surgery, Tonsillectomy Additional Past Surgical History / Comment(s): left hand tendon surgery Past Anesthesia/Blood Transfusion Reactions: No Reported Reaction Past Psychological History: No Psychological Hx Reported Smoking Status: Current every day smoker Past Alcohol Use History: None Reported Past Drug Use History: None Reported - Past Family History Father Family Medical History: No Reported History Additional Family Medical History / Comment(s): Father is alive and in his 70's Mother Family Medical History: Pneumonia Additional Family Medical History / Comment(s): Mother of pneumonia at the age of 52yrs. General Exam - General Exam Comments Initial Comments: 58-year-old male. Alert and oriented 3. No significant distress. Limitations: no limitations General appearance: alert, in no apparent distress Head exam: Present: atraumatic, normocephalic, normal inspection Eye exam: Present: normal appearance, PERRL, EOMI. Absent: scleral icterus, conjunctival injection, periorbital swelling ENT exam: Present: normal exam, mucous membranes moist Neck exam: Present: normal inspection. Absent: tenderness, meningismus, lymphadenopathy Respiratory exam: Present: normal lung sounds bilaterally. Absent: respiratory distress, wheezes, rales, rhonchi, stridor Cardiovascular Exam: Present: regular rate, normal rhythm, normal heart sounds. Absent: systolic murmur, diastolic murmur, rubs, gallop, clicks GI/Abdominal exam: Present: soft, normal bowel sounds. Absent: distended, tenderness, guarding, rebound, rigid Extremities exam: Present: normal inspection, full ROM, normal capillary refill, other (Patient has tenderness of her left great toe, with some swelling noted.). Absent: tenderness, pedal edema, joint swelling, calf tenderness Back exam: Present: normal inspection Neurological exam: Present: alert, oriented X3, CN II-XII intact Psychiatric exam: Present: normal affect, normal mood Skin exam: Present: warm Course Vital Signs 03/19/19 09:48 Temperature 98 F Pulse Rate 67 Respiratory 18 Rate Blood Pressure 153/77 O2 Sat by Pulse 97 Oximetry Medical Decision Making - Medical Decision Making 58-year-old male, presents today for evaluation for concern for gout with his left foot. He has tenderness and swelling over the left great toe. This time patient's clinical presentations and forgot his had in the past. At this time Patient will be placed on a temperature medicine and one dose of colchicine. Discussed the Patient needs to rest ice and elevate and drink plenty of water. All questions were answered return parameters were discussed. Discussed PCP follow-up. Disposition Clinical Impression: Gout attack Disposition: HOME SELF-CARE Condition: Good Instructions (If sedation given, give patient instructions): Gout (ED), Low Purine Diet (ED) Additional Instructions: Rest ice, and elevate the leg. Patient can take Motrin 800s for the next 2-3 days every 6-8 hours. Patient continue the colchicine instructed as well. Have follow-up with your orthopedic and primary care physician. Prescriptions: Colchicine 0.6 mg PO DAILY #3 tablet Is patient prescribed a controlled substance at d/c from ED?: No Referrals: Cayden Hennessy MD [Primary Care Provider] - 1-2 days Time of Disposition: 10:22
== END 2019-03-19 10:30 | disposition home or self-care (01) ==
LOC: EC 09:39
DX: M10.9 Gout, unspecified (principal); M79.89 Other specified soft tissue disorders; F17.200 Nicotine dependence, unspecified, uncomplicated; Z98.890 Other specified postprocedural states
CPT/HCPCS: 99283

== ENCOUNTER → 2019-03-26 | Outpatient (CLI) | payer OTHER ==
[2019-03-26 19:39] LABS: African American GFR (CKD) 96.4 (60.0-200.0); Calcium 9.4 mg/dL (8.7-10.3); Non-African American GFR(CKD) 83.2 (60.0-200.0); Potassium 4.4 mmol/L (3.5-5.5)
== END | disposition home or self-care (01) ==
LOC: LABWHC1 12:38
PROVIDERS: ATTEND Nurse Practitioner Adult Health
DX: I10 Essential (primary) hypertension (principal); N17.9 Acute kidney failure, unspecified
CPT/HCPCS: 36415; 80048

== ENCOUNTER 2019-07-23 12:42 | Emergency (ER) | payer OTHER ==
[2019-07-23] MEDS ORDERED: SODIUM CHLORIDE 0.9% 1,000 ML IV STA (12:46)
[2019-07-23] MEDS ORDERED: NALOXONE 0.4 MG/ML 10 ML VIAL IVP STA (12:47)
[2019-07-23 12:49] LABS: Glucose,Whole Blood 136 mg/dL (75-99)
--- NOTE | 2019-07-23 13:04 | ED ---
Neuro HPI - General Stated Complaint: Altered Mental Status Time Seen by Provider: 07/23/19 12:42 Source: EMS, RN notes reviewed Mode of arrival: EMS Limitations: altered mental status - History of Present Illness Is the patient presenting with stroke symptoms?: Yes Last Known Well Date: 07/23/19 Last Known Well Time: 10:00 Initial Comments: This is a 59-year-old male with a history of COPD history of gout history of peripheral vascular disease who apparently was scheduled to have a vascular procedure performed a near future who was last seen well about 3 hours prior to arrival was found lying on the floor apparently he was trying use his inhaler or nebulizer per paramedics and ended up on the floor. Initially he was moving his left side not moving his right side he did have pinpoint pupils. No known trauma. No recent fevers chills nausea vomiting sweats no other history available at this time. Per paramedics patient did have an approximate 1 minute episode of tonic-clonic seizure activity. - Related Data Home Medications: Home Medications Medication Instructions Recorded Confirmed Ibuprofen [Motrin Ib] 400 mg PO Q6H PRN 12/22/18 12/22/18 Previous Rx's Medication Instructions Recorded Acetaminophen Tab [Tylenol] 500 mg PO Q6HR PRN tab 12/29/18 Aspirin 81 mg PO DAILY chew 12/29/18 Atorvastatin [Lipitor] 40 mg PO DAILY #30 tab 12/29/18 Budesonide/Formoterol Fumarate 1 puff INHALATION BID #1 inhaler 12/29/18 [Symbicort 160-4.5 Mcg Inhaler] Famotidine [Pepcid] 20 mg PO BID #60 tablet 12/29/18 Ipratropium-Albuterol Nebulize 3 ml INHALATION QID #120 ampul.neb 12/29/18 [Duoneb 0.5 mg-3 mg/3 ml Soln] Ketotifen 0.025% Ophth Soln 1 drops BOTH EYES BID #1 ml 12/29/18 [Zaditor] Lisinopril-Hctz 10-12.5 mg 1 tab PO BID #60 tab 12/29/18 [Zestoretic 10-12.5] Magnesium Oxide [Mag-Ox] 400 mg PO TID #14 tab 12/29/18 Metoprolol Tartrate [Lopressor] 50 mg PO BID #60 tab 12/29/18 Nicotine 21Mg/24Hr Patch [Habitrol] 1 patch TRANSDERM DAILY #14 patch 12/29/18 Thiamine [Vitamin B-1] 100 mg PO BID-W/MEALS #60 tab 12/29/18 predniSONE 10 mg PO DAILY #30 tab 12/29/18 Colchicine 0.6 mg PO DAILY #3 tablet 03/19/19 Allergies/Adverse Reactions: Allergies Allergy/AdvReac Type Severity Reaction Status Date / Time No Known Allergies Allergy Verified 07/23/19 12:49 Review of Systems ROS Statement: Those systems with pertinent positive or pertinent negative responses have been documented in the HPI. ROS Other: All systems not noted in ROS Statement are negative. Limitations: ROS unobtainable due to patients medical condition General Exam - General Exam Comments Initial Comments: This is a well-developed well-nourished obtunded patient who is not moving his extremities. Limitations: altered mental status General appearance: obtunded Head exam: Present: atraumatic, normocephalic Eye exam: Present: other (Pupils are pinpoint bilaterally addition the patient appeared to gaze to the left now he is using bilaterally.) ENT exam: Present: normal exam, mucous membranes moist Neck exam: Present: normal inspection, full ROM, other (No stridor JVD or bruits). Absent: tenderness, meningismus, lymphadenopathy Respiratory exam: Present: decreased breath sounds Cardiovascular Exam: Present: regular rate, normal rhythm, normal heart sounds. Absent: systolic murmur, diastolic murmur, rubs, gallop, clicks GI/Abdominal exam: Present: soft, normal bowel sounds. Absent: distended, tenderness, guarding, rebound, rigid Extremities exam: Present: normal inspection, full ROM, normal capillary refill. Absent: tenderness, pedal edema, joint swelling, calf tenderness Back exam: Present: normal inspection Neurological exam: Present: altered, motor sensory deficit Psychiatric exam: Present: other (Unable to evaluate) Skin exam: Present: warm, dry, intact, normal color. Absent: rash Stroke MDM - Lab Data Result diagrams: 07/23/19 12:46 07/23/19 12:46 Lab Results 07/23/19 07/23/19 07/23/19 Range/Units 12:46 12:46 12:46 WBC 15.3 H (3.8-10.6) k/uL RBC 5.17 (4.30-5.90) m/uL Hgb 15.2 (13.0-17.5) gm/dL Hct 47.2 (39.0-53.0) % MCV 91.3 (80.0-100.0) fL MCH 29.5 (25.0-35.0) pg MCHC 32.3 (31.0-37.0) g/dL RDW 12.7 (11.5-15.5) % Plt Count 310 (150-450) k/uL Neutrophils % 50 % Lymphocytes % 33 % Monocytes % 9 % Eosinophils % 3 % Basophils % 1 % Neutrophils # 7.6 (1.3-7.7) k/uL Lymphocytes # 5.1 H (1.0-4.8) k/uL Monocytes # 1.4 H (0-1.0) k/uL Eosinophils # 0.5 (0-0.7) k/uL Basophils # 0.1 (0-0.2) k/uL PT (9.0-12.0) sec INR (<1.2) APTT (22.0-30.0) sec Sample Site ABG pH (7.35-7.45) ABG pCO2 (35-45) mmHg ABG pO2 (83-108) mmHg ABG HCO3 (21-25) mmol/L ABG Total CO2 (19-24) mmol/L ABG O2 Saturation (94-97) % ABG Base Excess mmol/L Sukh Test FiO2 % Sodium 131 L (137-145) mmol/L Potassium 4.5 (3.5-5.1) mmol/L Chloride 94 L (98-107) mmol/L Carbon Dioxide 17 L (22-30) mmol/L Anion Gap 20 mmol/L BUN 8 L (9-20) mg/dL Creatinine 1.16 (0.66-1.25) mg/dL Est GFR (CKD-EPI)AfAm 80 (>60 ml/min/1.73 sqM) Est GFR (CKD-EPI)NonAf 70 (>60 ml/min/1.73 sqM) Glucose 141 H (74-99) mg/dL POC Glucose (mg/dL) (75-99) mg/dL POC Glu Treadle Cut Off Saw Operator ID Calcium 9.2 (8.4-10.2) mg/dL Total Bilirubin 0.4 (0.2-1.3) mg/dL AST 29 (17-59) U/L ALT 13 (4-49) U/L Alkaline Phosphatase 46 (38-126) U/L Ammonia (<30) umol/L Total Creatine Kinase 180 H (55-170) U/L CK-MB (CK-2) 1.9 (0.0-2.4) ng/mL CK-MB (CK-2) Rel Index 1.1 Troponin I <0.012 (0.000-0.034) ng/mL Total Protein 7.0 (6.3-8.2) g/dL Albumin 4.3 (3.5-5.0) g/dL Urine Opiates Screen (NotDetected) Ur Oxycodone Screen (NotDetected) Urine Methadone Screen (NotDetected) Ur Propoxyphene Screen (NotDetected) Ur Barbiturates Screen (NotDetected) U Tricyclic Antidepress (NotDetected) Ur Phencyclidine Scrn (NotDetected) Ur Amphetamines Screen (NotDetected) U Methamphetamines Scrn (NotDetected) U Benzodiazepines Scrn (NotDetected) Urine Cocaine Screen (NotDetected) U Marijuana (THC) Screen (NotDetected) Serum Alcohol <10 mg/dL 07/23/19 07/23/19 07/23/19 Range/Units 12:46 12:46 12:48 WBC (3.8-10.6) k/uL RBC (4.30-5.90) m/uL Hgb (13.0-17.5) gm/dL Hct (39.0-53.0) % MCV (80.0-100.0) fL MCH (25.0-35.0) pg MCHC (31.0-37.0) g/dL RDW (11.5-15.5) % Plt Count (150-450) k/uL Neutrophils % % Lymphocytes % % Monocytes % % Eosinophils % % Basophils % % Neutrophils # (1.3-7.7) k/uL Lymphocytes # (1.0-4.8) k/uL Monocytes # (0-1.0) k/uL Eosinophils # (0-0.7) k/uL Basophils # (0-0.2) k/uL PT 9.8 (9.0-12.0) sec INR 0.9 (<1.2) APTT 25.7 (22.0-30.0) sec Sample Site ABG pH (7.35-7.45) ABG pCO2 (35-45) mmHg ABG pO2 (83-108) mmHg ABG HCO3 (21-25) mmol/L ABG Total CO2 (19-24) mmol/L ABG O2 Saturation (94-97) % ABG Base Excess mmol/L Sukh Test FiO2 % Sodium (137-145) mmol/L Potassium (3.5-5.1) mmol/L Chloride (98-107) mmol/L Carbon Dioxide (22-30) mmol/L Anion Gap mmol/L BUN (9-20) mg/dL Creatinine (0.66-1.25) mg/dL Est GFR (CKD-EPI)AfAm (>60 ml/min/1.73 sqM) Est GFR (CKD-EPI)NonAf (>60 ml/min/1.73 sqM) Glucose (74-99) mg/dL POC Glucose (mg/dL) 136 H (75-99) mg/dL POC Glu Treadle Cut Off Saw Operator ID Joseluis Mccord Calcium (8.4-10.2) mg/dL Total Bilirubin (0.2-1.3) mg/dL AST (17-59) U/L ALT (4-49) U/L Alkaline Phosphatase (38-126) U/L Ammonia 175 H (<30) umol/L Total Creatine Kinase (55-170) U/L CK-MB (CK-2) (0.0-2.4) ng/mL CK-MB (CK-2) Rel Index Troponin I (0.000-0.034) ng/mL Total Protein (6.3-8.2) g/dL Albumin (3.5-5.0) g/dL Urine Opiates Screen (NotDetected) Ur Oxycodone Screen (NotDetected) Urine Methadone Screen (NotDetected) Ur Propoxyphene Screen (NotDetected) Ur Barbiturates Screen (NotDetected) U Tricyclic Antidepress (NotDetected) Ur Phencyclidine Scrn (NotDetected) Ur Amphetamines Screen (NotDetected) U Methamphetamines Scrn (NotDetected) U Benzodiazepines Scrn (NotDetected) Urine Cocaine Screen (NotDetected) U Marijuana (THC) Screen (NotDetected) Serum Alcohol mg/dL 07/23/19 07/23/19 Range/Units 14:27 15:11 WBC (3.8-10.6) k/uL RBC (4.30-5.90) m/uL Hgb (13.0-17.5) gm/dL Hct (39.0-53.0) % MCV (80.0-100.0) fL MCH (25.0-35.0) pg MCHC (31.0-37.0) g/dL RDW (11.5-15.5) % Plt Count (150-450) k/uL Neutrophils % % Lymphocytes % % Monocytes % % Eosinophils % % Basophils % % Neutrophils # (1.3-7.7) k/uL Lymphocytes # (1.0-4.8) k/uL Monocytes # (0-1.0) k/uL Eosinophils # (0-0.7) k/uL Basophils # (0-0.2) k/uL PT (9.0-12.0) sec INR (<1.2) APTT (22.0-30.0) sec Sample Site rt radial ABG pH 7.32 L (7.35-7.45) ABG pCO2 60 H (35-45) mmHg ABG pO2 64 L (83-108) mmHg ABG HCO3 31 H (21-25) mmol/L ABG Total CO2 33 H (19-24) mmol/L ABG O2 Saturation 91.5 L (94-97) % ABG Base Excess 4.8 mmol/L Sukh Test Yes FiO2 100 % Sodium (137-145) mmol/L Potassium (3.5-5.1) mmol/L Chloride (98-107) mmol/L Carbon Dioxide (22-30) mmol/L Anion Gap mmol/L BUN (9-20) mg/dL Creatinine (0.66-1.25) mg/dL Est GFR (CKD-EPI)AfAm (>60 ml/min/1.73 sqM) Est GFR (CKD-EPI)NonAf (>60 ml/min/1.73 sqM) Glucose (74-99) mg/dL POC Glucose (mg/dL) (75-99) mg/dL POC Glu Treadle Cut Off Saw Operator ID Calcium (8.4-10.2) mg/dL Total Bilirubin (0.2-1.3) mg/dL AST (17-59) U/L ALT (4-49) U/L Alkaline Phosphatase (38-126) U/L Ammonia (<30) umol/L Total Creatine Kinase (55-170) U/L CK-MB (CK-2) (0.0-2.4) ng/mL CK-MB (CK-2) Rel Index Troponin I (0.000-0.034) ng/mL Total Protein (6.3-8.2) g/dL Albumin (3.5-5.0) g/dL Urine Opiates Screen Not Detected (NotDetected) Ur Oxycodone Screen Not Detected (NotDetected) Urine Methadone Screen Not Detected (NotDetected) Ur Propoxyphene Screen Not Detected (NotDetected) Ur Barbiturates Screen Not Detected (NotDetected) U Tricyclic Antidepress Not Detected (NotDetected) Ur Phencyclidine Scrn Not Detected (NotDetected) Ur Amphetamines Screen Not Detected (NotDetected) U Methamphetamines Scrn Not Detected (NotDetected) U Benzodiazepines Scrn Not Detected (NotDetected) Urine Cocaine Screen Not Detected (NotDetected) U Marijuana (THC) Screen Not Detected (NotDetected) Serum Alcohol mg/dL - NIH Stroke Scale 1a. Level of Consciousness: (2) not alert, rep stimuli 1b. LOC Questions: (2) answers no questions correctly 1c. LOC Commands: (2) performs no tasks correctly 2. Best Gaze: (1) partial gaze palsy 3. Visual: (1) partial hemianopia 4. Facial Palsy: (0) normal symmetrical movement 5a. Motor Arm Left: (0) no drift 5b. Motor Arm Right: (1) drift 6a. Motor Leg Left: (1) drift 6b. Motor Leg Right: (1) drift 7. Limb Ataxia: (1) present 1 limb 8. Sensory: (1) mild/moderate sensory loss 9. Best Language: (un) mute/global aphasia 10. Dysarthria: (1) mild/moderate dysarthria 11. Extinction/Inattention: (0) no abnormality - Medical Decision Making I did discuss the case will times the patient's family as well as Dr. Cisneros. Patient will require transfer to [facility] for higher level of care and 24 EEG. The ammonia level was redrawn and pending at this time. I discussed the case with Dr. Smith at [facility] was agreed to set the patient transfer. - EKG Data -: EKG Interpreted by Me EKG shows normal: sinus rhythm (Sinus rhythm of 80 OR interval 184 QRS duration 84 QT since QTC 390/449 st-t wave changes) Past Medical History Past Medical History: Asthma, COPD Additional Past Medical History / Comment(s): Past bilateral feet-gout. History of Any Multi-Drug Resistant Organisms: None Reported Past Surgical History: Orthopedic Surgery, Tonsillectomy Additional Past Surgical History / Comment(s): left hand tendon surgery Past Anesthesia/Blood Transfusion Reactions: No Reported Reaction Past Psychological History: No Psychological Hx Reported Smoking Status: Current every day smoker Past Alcohol Use History: None Reported Past Drug Use History: None Reported - Past Family History Father Family Medical History: No Reported History Additional Family Medical History / Comment(s): Father is alive and in his 70's Mother Family Medical History: Pneumonia Additional Family Medical History / Comment(s): Mother of pneumonia at the age of 52yrs. Course Vital Signs 07/23/19 07/23/19 07/23/19 12:45 13:00 13:15 Temperature 98.3 F Pulse Rate 80 89 90 Respiratory 16 20 18 Rate Blood Pressure 127/95 167/83 137/64 O2 Sat by Pulse 95 92 L 92 L Oximetry 07/23/19 07/23/19 07/23/19 13:29 13:30 13:45 Temperature Pulse Rate 90 88 Respiratory 22 18 18 Rate Blood Pressure 130/70 139/69 O2 Sat by Pulse 94 L 95 Oximetry 07/23/19 07/23/19 14:45 15:31 Temperature Pulse Rate 89 81 Respiratory 18 16 Rate Blood Pressure 125/74 112/65 O2 Sat by Pulse 93 L 94 L Oximetry - Reevaluation(s) Reevaluation #1: 07/23/19 13:05 Patient did have an approximate 1 minute seizure appear to be more so involving the left side. The patient did initially have pinpoint pupils they were dilated to approximately 5 mm during the seizure. Reevaluation #2: 07/23/19 13:07 I did discuss the initial findings with Dr. Cisneros who is now involved with the stroke at work. He will look at the CAT scans Reevaluation #3: 07/23/19 13:13 I did discuss the initial CT results with Dr. Cisneros. 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 CT angios pending. Reevaluation #4: 07/23/19 15:37 Reevaluation the patient revealed patient family did seem to settle down after IV medication. He did respond to the Narcan however it was later learned he is on Suboxone. Patient's CAT scan did show evidence of an old left MCA infarct. The patient's sister was present she states that he is been reaching for things in the air for past several days. To her knowledge he has not started drinking or using other drugs again. After discussing the case again with Dr. Cisneros patient will be transferred to [facility] for further evaluation and treatment. The ammonia level was elevated at 175 a repeat level was drawn for confirmation. Patient has also been noted to be able move all of his extremities without any apparent difficulty. Critical Care Time Critical Care Time: Yes Critical Care Time: 53 minutes of critical care time which includes initial presentation with history physical labs x-rays multiple re-evaluations the patient multiple discussions with neurology discussed with patient family review of old charting was available documentation above also this includes discussion with paramedics as well as with the receiving facility personnel. Disposition Clinical Impression: Encephalopathy acute, Seizure, Hyperammonemia, Bernard's paralysis (postepileptic) Disposition: OTHER INSTITUTION NOT DEFINED Condition: Serious Referrals: Cayden Hennessy MD [Primary Care Provider] - 1-2 days - Out of Hospital Transfer - Req. Specs Out of Hospital Transfer - Requested Specifics: Other Emergency Center
[2019-07-23 13:07] LABS: ALT 13 U/L (4-49); AST 29 U/L (17-59); African American GFR (CKD) 80 (>60 ml/min/1.73 sqM); Albumin 4.3 g/dL (3.5-5.0); Alkaline Phosphatase 46 U/L (38-126); Anion Gap 20 mmol/L; Blood Urea Nitrogen 8 mg/dL (9-20); Calcium 9.2 mg/dL (8.4-10.2); Carbon Dioxide 17 mmol/L (22-30); Chloride 94 mmol/L (98-107); Glucose 141 mg/dL (74-99); Non-African American GFR(CKD) 70 (>60 ml/min/1.73 sqM); Potassium 4.5 mmol/L (3.5-5.1); Sodium 131 mmol/L (137-145); Total Bilirubin 0.4 mg/dL (0.2-1.3)
[2019-07-23] MEDS ORDERED: levETIRAcetam IV 1,000 MG in SALINE 1 100ML.BAG IVPB STA (13:10)
[2019-07-23 13:11] LABS: INR 0.9 (<1.2); Partial Thromboplastin Time 25.7 sec (22.0-30.0); Prothrombin Time 9.8 sec (9.0-12.0)
[2019-07-23 13:12] LABS: Basophils # (A) 0.1 k/uL (0-0.2); Basophils % (A) 1 %; Eosinophils # (A) 0.5 k/uL (0-0.7); Eosinophils % (A) 3 %; HCT 47.2 % (39.0-53.0); HGB 15.2 gm/dL (13.0-17.5); Lymphocytes # (A) 5.1 k/uL (1.0-4.8); Lymphocytes % (A) 33 %; MCH 29.5 pg (25.0-35.0); MCHC 32.3 g/dL (31.0-37.0); MCV 91.3 fL (80.0-100.0); Mean Platelet Volume 7.6; Monocytes # (A) 1.4 k/uL (0-1.0); Monocytes % (A) 9 %; Neutrophils # (A) 7.6 k/uL (1.3-7.7); Neutrophils % (A) 50 %; Platelet Count 310 k/uL (150-450); RBC 5.17 m/uL (4.30-5.90); RDW 12.7 % (11.5-15.5); WBC 15.3 k/uL (3.8-10.6)
--- NOTE | 2019-07-23 13:17 | CT ---
EXAMINATION TYPE: CT brain wo con for TPA DATE OF EXAM: 07/23/2019 HISTORY: Unresponsive. Acute onset neuro deficit. CT DLP: 1157.8 mGycm. Automated Exposure Control for Dose Reduction was Utilized. TECHNIQUE: CT scan of the head is performed without contrast. COMPARISON: None. FINDINGS: There is no acute intracranial hemorrhage or midline shift identified. There is diffuse v entricular and sulcal prominence consistent with diffuse age-related cerebral atrophy. There is focal area of encephalomalacia left posterior parietal-occipital region at level of posterior watershed ax ial image 35 for reference. Moderate mucosal thickening with patchy fluid in the right maxillary sinu s. Globes are intact bilaterally. IMPRESSION: No acute intracranial hemorrhage or midline shift. There is mild diffuse cerebral atrop hy with old infarct left posterior watershed level.
[2019-07-23 13:21] LABS: Creatine Kinase 180 U/L (55-170)
[2019-07-23] MEDS ORDERED: LORazepam 2 MG/ML INJ IV STA ×2 (13:31→13:45)
[2019-07-23 13:34] LABS: Creatine Kinase MB 1.9 ng/mL (0.0-2.4); Troponin I <0.012 ng/mL (0.000-0.034)
[2019-07-23] MEDS ORDERED: ZIPRASIDONE 20 MG VIAL IM STA (13:49)
--- NOTE | 2019-07-23 13:57 | CT ---
EXAMINATION TYPE: CT angio head neck DATE OF EXAM: 07/23/2019 HISTORY: Unresponsive. Code stroke with acute onset neuro deficit. COMPARISON: NONE CT DLP: mGycm. Automated Exposure Control for Dose Reduction was Utilized. TECHNIQUE: CTA scan of the neck is performed with IV Contrast, patient injected with 65 mL of Isovue 370, followed by saline flush, axial images are obtained, coronal and sagittal reformatted images ar e reviewed. Three-D reconstructed images are created on an independent workstation and reviewed. FINDINGS: Exam is noted suboptimal due to less than optimal contrast bolus. Carotid/Vascular Structures: Normal three-vessel origin from the aortic arch with mild peripheral ricardo que. Right common carotid artery shows normal origin from right brachiocephalic artery. More moderate to severe mixed plaque in right carotid bulb extends into proximal internal carotid artery with sign ificant stenosis seen best image 411 with focal lumen diameter narrowed to 1.6 mm near this level and additional areas of significant narrowing seen for reference image 439 narrowing down to 8 mm is tho ught present. There is reconstitution up to 4.7 mm distal to this series 401 image 65. Remainder righ t internal carotid artery shows no significant plaque or stenosis. Patent right external carotid nuzhat ry without significant stenosis. Moderate to borderline severe mixed plaque left carotid bulb extending into proximal internal carotid artery without significant stenosis greater than 50%. Patent external carotid artery shows luminal n arrowing to 1.1 mm image 408 and reconstitution to 4.8 mm axial image 435. Right common carotid arter y shows mild to moderate peripheral plaque without significant stenosis. Remainder right internal car otid artery shows no significant plaque or stenosis. There is dominant left vertebral artery. Right vertebral artery becomes hypoplastic course occluded b efore basilar junction. Posterior circulation shows poor visualization of patent anterior indicating arteries. No significant focal stenosis or aneurysmal change seen. Anterior circulation shows hypopla stic right A1 segment. Filling of right A2 segment due to patent anterior communicating artery. No si gnificant focal stenosis or aneurysmal change. Moderate calcified plaque supraclinoid segment distal internal carotid arteries bilaterally. Slightly suboptimal as 1 mm cuts through the [place] are not provided. Other: [id number] underlying emphysematous changes present. IMPRESSION: Suboptimal study with most dense pole is seen in the SVC. Significant stenosis proximal r ight internal carotid artery up to just over 80% is felt present. No significant stenosis or intimal change at the level of [place]. Incidental significant stenosis in the left external carotid artery measuring around 75% near the origin.
[2019-07-23 14:18] LABS: Alcohol <10 mg/dL
--- NOTE | 2019-07-23 14:35 | XR ---
EXAMINATION TYPE: XR chest 1V portable DATE OF EXAM: 07/23/2019 COMPARISON: Prior chest dated 12/22/2018 HISTORY: Altered mental status, history COPD TECHNIQUE: frontal view of the chest is obtained on 2 images. FINDINGS: There is no focal air space opacity, pleural effusion, or pneumothorax seen. The cardiac silhouette size is within normal limits. The osseous structures are intact. There are overlying car diac leads. Prominent lung volumes consistent with underlying emphysema, COPD. Prominent pulmonary ar rivas may be indicative of pulmonary artery hypertension. IMPRESSION: No acute process. Additional findings above.
[2019-07-23 14:52] LABS: ABG Base Excess 4.8 mmol/L; ABG HCO3 31 mmol/L (21-25); ABG Oxygen Saturation 91.5 % (94-97); ABG PCO2 60 mmHg (35-45); ABG PH 7.32 (7.35-7.45); ABG PO2 64 mmHg (83-108); ABG TCO2 33 mmol/L (19-24); Allen Test Performed? Yes
[2019-07-23 15:30] LABS: Amphetamine Screen,Urine Not Detected (NotDetected); Barbiturate Screen,Urine Not Detected (NotDetected); Benzodiazepines Screen,Urine Not Detected (NotDetected); Cocaine Screen,Urine Not Detected (NotDetected); Methadone Screen, Urine Not Detected (NotDetected); Opiate Screen,Urine Not Detected (NotDetected); Oxycodone Screen, Urine Not Detected (NotDetected); Phencyclidine Screen,Urine Not Detected (NotDetected); Tricyclic Antidepressant,Urine Not Detected (NotDetected); Urn Cannabinoid Scrn Not Detected (NotDetected)
[2019-07-23] MEDS ORDERED: SODIUM CHLORIDE 0.9% 1,000 ML with MVI, ADULT NO.4 WITH VIT K 10 ML, THIAMINE 100 MG, F... IV ONE ×4 (15:30)
[2019-07-23 16:25] VITALS: BP 124/70; PULSE 89; RESP 18; TEMP 98
== END 2019-07-23 16:32 | disposition other institution (70) ==
LOC: EC 12:42
DX: G93.40 Encephalopathy, unspecified (principal); G83.84 Todd's paralysis (postepileptic); E72.20 Disorder of urea cycle metabolism, unspecified; F17.200 Nicotine dependence, unspecified, uncomplicated; Z86.79 Personal history of other diseases of the circulatory system
CPT/HCPCS: 99291 ×2; 96365 ×2; 96367 ×2; 96361 ×3; 96375 ×3; 96376 ×2; 96372 ×2; 36415; 36600; 93005; 80053; 82140; 82550; 82553; 82805; 84484; 85025; 85610; 85730; 80306; 71045; 70496; 70450; 70498; G0480; J2060; J2310; J3411; J3486; J1953; Q9967; 80320

== ENCOUNTER → 2019-08-10 | Outpatient (CLI) | payer OTHER ==
[2019-08-10 09:34] LABS: African American GFR (CKD) >90 (>60 ml/min/1.73 sqM); Anion Gap 9 mmol/L; Blood Urea Nitrogen 11 mg/dL (9-20); Carbon Dioxide 34 mmol/L (22-30); Chloride 94 mmol/L (98-107); Non-African American GFR(CKD) 84 (>60 ml/min/1.73 sqM); Potassium 4.3 mmol/L (3.5-5.1); Sodium 137 mmol/L (137-145)
[2019-08-10 09:37] LABS: HCT 42.1 % (39.0-53.0); HGB 13.7 gm/dL (13.0-17.5); MCHC 32.6 g/dL (31.0-37.0); Mean Platelet Volume 7.8; Platelet Count 328 k/uL (150-450); RBC 4.73 m/uL (4.30-5.90); RDW 12.8 % (11.5-15.5); WBC 19.3 k/uL (3.8-10.6)
== END | disposition home or self-care (01) ==
LOC: LABWHC1 08:48
PROVIDERS: ATTEND Internal Medicine Interventional Cardiology
DX: Z01.818 Encounter for other preprocedural examination (principal); I70.213 Atherosclerosis of native arteries of extremities with intermittent claudication, bilateral legs
CPT/HCPCS: 36415; 80051; 82565; 84520; 85027

== ENCOUNTER 2019-08-11 10:43 | Day surgery (SDC) | payer OTHER ==
[2019-08-09 16:19] VITALS: BMI 25.4
[~2019-08-11 10:43] MED LIST: ALPRAZolam 0.25 MG TAB PO PRN; ALPRAZolam 0.5 MG TAB PO PRN; ASPIRIN 325 MG TAB PO STA; SODIUM CHLORIDE 0.9% 1,000 ML in EMPTY BAG 1 BAG IV ONE
[2019-08-11] MEDS ORDERED: SODIUM CHLORIDE 0.9% 1,000 ML IV ONE (11:00)
[2019-08-11 11:08] VITALS: TEMP 98.3
[2019-08-11] MEDS ORDERED: MIDAZOLAM 2 MG/2 ML VIAL IV ONE (11:32)
[2019-08-11] MEDS ORDERED: LIDOCAINE 1% INJ 10MG/ML (20 ML MDV) SQ ONE (11:33)
[2019-08-11] MEDS: VERAPAMIL SYRINGE (5 MG/10 ML) INTRAARTER ONE ×2 (11:34→11:49)
[2019-08-11] MEDS ORDERED: HYDROmorphone 1 MG/ML 1 ML SYRINGE IVP ONE (11:37)
[2019-08-11] MEDS ORDERED: IOPAMIDOL-250 100ML BTL INTRAARTER ONE (11:48)
[2019-08-11] MEDS ORDERED: HEPARIN SODIUM 1,000 UN/ML (10ML VL) IV ONE (11:55)
[2019-08-11] MEDS ORDERED: SODIUM CHLORIDE 0.9% 1,000 ML IV SCH (12:00)
--- NOTE | 2019-08-11 12:03 | P.PCN ---
Date of Procedure: 08/11/19 Operative Findings: AN ABDOMINAL AORTOGRAM AND BILATERAL LOWER EXTREMITIES RUNOFF PERFORMING PHYSICIAN: Daniel Downs MD PROCEDURE PERFORMED: 1. An abdominal aortogram 2. Bilateral lower extremities runoff INDICATION: This is a very pleasant 59-year-old gentleman who sees Dr. Box with hypertension and dyslipidemia who was experiencing bilateral lower extremities intermittent claudication. He underwent an arterial duplex study which came in to be abnormal. Angiogram was advised. COMPLICATION: Known LEVEL OF SEDATION: Moderate was sedation length of 24 minutes APPROACH: Right common femoral artery PROCEDURE DESCRIPTION: After obtaining informed consent and explaining the procedure benefits, risks, and complications, the patient was brought to the cardiac specialist employee labor relations. The right radial artery was prepped and draped in sterile fashion. Subsequently axis the right radial artery and placed a 5-[place] sheath. The patient was given a total of 2 mg of verapamil. Also we gave the patient a total of 6000 of heparin IV. We did an abdominal aortogram and bilateral lower extremities runoff using 5- [place] pigtail catheter using a power injection. The catheter was initially placed at the level of the renal arteries, and it was into advanced above the bifurcation of the aorta into right and left common iliac arteries. The procedure was completed and there was no complications. SELECTIVE PERIPHERAL ANGIOGRAM: The abdominal aorta: Appears to be angiographically normal The Common iliac arteries: The common iliac arterthe right and left common iliac arteries appear to have mild disease only. The external iliac arterthe: The right external iliac artery appears to have a lesion in the range of 60-70%. The left external iliac artery appears to have mild disease only. The internal iliac arteries: Both are patent The common femoral arteries: Have mild disease only Superficial femoral arteries: Both are occluded on long segments Popliteal arteries: The right popliteal appeared to have mild disease only. The left popliteal appeared to have a tight lesion Below the knees: There are 3 vessels run off below the knee bilaterally CONCLUSION: 1. 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 Occluded bilateral SFA on long segments 3. Three vessels run off below the knee bilaterally POSTPROCEDURE MANAGEMENT: 1. Assessment the gradient across the right external iliac artery 2. STEMMING MACHINE OPERATOR of the right and left SFA to be performed from pedal approach
[2019-08-11 16:00] VITALS: PULSE 62
[2019-08-11 16:51] VITALS: BP 112/64; RESP 16
--- NOTE | 2019-08-12 09:19 | IR ---
EXAMINATION TYPE: IR angio abdominal w runoff DATE OF EXAM: 08/12/2019 COMPARISON: NONE HISTORY: Fluoroscopy time. Fluoroscopy was provided to the referring clinician.
== END 2019-08-11 17:03 | disposition home or self-care (01) ==
LOC: CATHCVL 10:43
PROVIDERS: ATTEND Internal Medicine Interventional Cardiology
DX: I70.213 Atherosclerosis of native arteries of extremities with intermittent claudication, bilateral legs (principal); I10 Essential (primary) hypertension; E78.5 Hyperlipidemia, unspecified; F17.210 Nicotine dependence, cigarettes, uncomplicated; Z79.82 Long term (current) use of aspirin; Z79.899 Other long term (current) drug therapy
CPT/HCPCS: 75625; 75716; 36200; J2250; J2001; J1644; J1170; Q9966

== ENCOUNTER → 2019-09-28 | Outpatient (CLI) | payer OTHER ==
[2019-09-28 10:13] LABS: HCT 36.6 % (39.0-53.0); HGB 12.2 gm/dL (13.0-17.5); MCH 29.5 pg (25.0-35.0); MCHC 33.4 g/dL (31.0-37.0); MCV 88.3 fL (80.0-100.0); Mean Platelet Volume 7.3; Platelet Count 436 k/uL (150-450); RBC 4.14 m/uL (4.30-5.90); RDW 13.3 % (11.5-15.5)
[2019-09-28 10:27] LABS: Potassium 5.3 mmol/L (3.5-5.1)
== END | disposition home or self-care (01) ==
LOC: LABPAT 09:37
PROVIDERS: ATTEND Internal Medicine Interventional Cardiology
DX: Z01.818 Encounter for other preprocedural examination (principal); I73.9 Peripheral vascular disease, unspecified
CPT/HCPCS: 36415; 80051; 82565; 84520; 85027

== ENCOUNTER 2019-10-29 07:52 | Observation (INO) | payer OTHER ==
[2019-10-26 15:40] VITALS: BMI 27.3
[~2019-10-29 07:52] MED LIST changes: -ALPRAZolam 0.5 MG TAB PO PRN; +ASPIRIN 325 MG TAB PO ONE; -ASPIRIN 325 MG TAB PO STA; -SODIUM CHLORIDE 0.9% 1,000 ML in EMPTY BAG 1 BAG IV ONE
[2019-10-29 08:58] LABS: Basophils # (A) 0.1 k/uL (0-0.2); Basophils % (A) 1 %; Eosinophils # (A) 0.3 k/uL (0-0.7); Eosinophils % (A) 3 %; HCT 38.6 % (39.0-53.0); HGB 12.7 gm/dL (13.0-17.5); Lymphocytes # (A) 2.7 k/uL (1.0-4.8); Lymphocytes % (A) 24 %; MCH 28.1 pg (25.0-35.0); MCV 85.1 fL (80.0-100.0); Mean Platelet Volume 8.3; Monocytes # (A) 0.9 k/uL (0-1.0); Monocytes % (A) 8 %; Neutrophils # (A) 6.9 k/uL (1.3-7.7); Neutrophils % (A) 62 %; Platelet Count 276 k/uL (150-450); RBC 4.53 m/uL (4.30-5.90); WBC 11.1 k/uL (3.8-10.6)
[2019-10-29] MEDS ORDERED: SODIUM CHLORIDE 0.9% 1,000 ML IV ONE ×2 (09:01→11:43)
[2019-10-29 09:10] LABS: African American GFR (CKD) >90 (>60 ml/min/1.73 sqM); Anion Gap 9 mmol/L; Blood Urea Nitrogen 18 mg/dL (9-20); Calcium 9.4 mg/dL (8.4-10.2); Carbon Dioxide 31 mmol/L (22-30); Chloride 98 mmol/L (98-107); Glucose 248 mg/dL (74-99); Non-African American GFR(CKD) 79 (>60 ml/min/1.73 sqM); Potassium 4.7 mmol/L (3.5-5.1); Sodium 138 mmol/L (137-145)
[2019-10-29] MEDS ORDERED: MIDAZOLAM 2 MG/2 ML VIAL IV ONE ×2 (09:46→10:53)
[2019-10-29] MEDS: LIDOCAINE 1% INJ 10MG/ML (20 ML MDV) SQ ONE ×2 (09:48→10:24)
[2019-10-29] MEDS: HYDROmorphone 1 MG/ML 1 ML SYRINGE IVP ONE ×2 (10:09→10:13)
[2019-10-29] MEDS ORDERED: SODIUM CHLORIDE 0.9% 500 ML 500 ML with niCARdipine 6.25 MG, NITROGLYCERIN-D5W PMX 0.05... IV ONE ×8 (10:15→11:45)
[2019-10-29] MEDS: fentaNYL (PF) 50 MCG/ML 2 ML AMP IV ONE ×4 (10:26→10:53)
[2019-10-29] MEDS ORDERED: HYDROmorphone 1 MG/ML 1 ML SYRINGE IVP ONE (10:44)
[2019-10-29] MEDS ORDERED: PROPOFOL 10 MG/ML 20 ML VIAL IV ONE (11:09)
[2019-10-29] MEDS: NITROGLYCERIN 1000MCG/10ML SYRINGE INTRAARTER ONE ×2 (11:25→11:43)
[2019-10-29] MEDS ORDERED: niCARdipine Syringe (1,000 mcg/10 mL) INTRAARTER ONE (11:26)
[2019-10-29] MEDS ORDERED: IOPAMIDOL-250 100ML BTL INTRAARTER ONE (11:49)
[2019-10-29] MEDS ORDERED: hydrOXYzine HCL 25 MG TAB PO PRN (11:53)
[2019-10-29] MEDS ORDERED: IPRATROPIUM-ALBUTEROL 3 ML NEB INHALATION PRN (11:53)
[2019-10-29] MEDS ORDERED: ALBUTEROL NEBULIZED 2.5 MG/3 ML INHALATION PRN (11:53)
[2019-10-29] MEDS ORDERED: CLOPIDOGREL 75 MG TAB PO ONE (11:54)
[2019-10-29] MEDS ORDERED: SODIUM CHLORIDE 0.9% 1,000 ML in EMPTY BAG 1 BAG IV SCH (12:00)
--- NOTE | 2019-10-29 13:36 | IR ---
EXAMINATION TYPE: IR stent intravas non coronary DATE OF EXAM: 10/29/2019 COMPARISON: NONE HISTORY: Fluoroscopy time. Fluoroscopy was provided to the referring clinician.
[2019-10-29] MEDS ORDERED: HYDROmorphone 0.5 MG/0.5 ML SYRINGE IVP PRN (14:35)
[2019-10-29] MEDS ORDERED: SUBOXONE SUBLINGUAL SCH (18:00)
[2019-10-29] MEDS: HYDROmorphone 1 MG/ML 1 ML SYRINGE IVP PRN (18:07)
[2019-10-29] MEDS: levETIRAcetam 500 MG TAB PO SCH (20:27)
[2019-10-29] MEDS: FAMOTIDINE 20 MG TAB PO SCH (20:27)
[2019-10-29] MEDS ORDERED: ATORVASTATIN 40 MG TAB PO SCH (21:00)
[2019-10-29] MEDS ORDERED: cloNIDine HCL 0.1 MG TAB PO SCH (21:00)
[2019-10-29] MEDS ORDERED: traZODone HCL 50 MG TAB PO SCH (21:00)
[2019-10-30] MEDS: HYDROmorphone 1 MG/ML 1 ML SYRINGE IVP PRN (03:29)
[2019-10-30 08:36] LABS: Basophils % (A) 0 %; Eosinophils # (A) 0.2 k/uL (0-0.7); Eosinophils % (A) 3 %; HCT 34.4 % (39.0-53.0); Lymphocytes # (A) 2.1 k/uL (1.0-4.8); Lymphocytes % (A) 23 %; MCH 27.7 pg (25.0-35.0); MCV 86.7 fL (80.0-100.0); Mean Platelet Volume 8.1; Monocytes # (A) 0.9 k/uL (0-1.0); Monocytes % (A) 10 %; Neutrophils # (A) 5.7 k/uL (1.3-7.7); Neutrophils % (A) 62 %; Platelet Count 226 k/uL (150-450); RBC 3.97 m/uL (4.30-5.90); RDW 13.2 % (11.5-15.5); WBC 9.1 k/uL (3.8-10.6)
[2019-10-30 08:53] LABS: African American GFR (CKD) >90 (>60 ml/min/1.73 sqM); Anion Gap 6 mmol/L; Blood Urea Nitrogen 14 mg/dL (9-20); Calcium 8.8 mg/dL (8.4-10.2); Carbon Dioxide 29 mmol/L (22-30); Chloride 100 mmol/L (98-107); Glucose 237 mg/dL (74-99); Non-African American GFR(CKD) >90 (>60 ml/min/1.73 sqM); Potassium 4.6 mmol/L (3.5-5.1); Sodium 135 mmol/L (137-145)
[2019-10-30] MEDS ORDERED: METOPROLOL TARTRATE 50 MG TAB PO SCH (09:00)
[2019-10-30] MEDS ORDERED: amLODIPine 10 MG TAB PO SCH (09:00)
[2019-10-30] MEDS ORDERED: CLOPIDOGREL 75 MG TAB PO SCH (09:00)
[2019-10-30] MEDS ORDERED: ASPIRIN 81 MG PO SCH (09:00)
[2019-10-30] MEDS ORDERED: COLCHICINE 0.6 MG EACH PO SCH (09:00)
--- NOTE | 2019-10-30 09:00 | P.DS ---
Providers Date of admission: 10/29/19 22:16 10/29/2019 Attending physician: Daniel Downs Primary care physician: [facility] Course: This is an 59-year-old gentleman who sees Dr. Box in the office as an outpatient was peripheral arterial disease and known chronic total occlusion of bilateral SFA was admitted to the hospital yesterday and underwent successful recanalizing chronic occluded left SFA. He was seen this morning. The right groin and left pedal axis are looking good. He does have excellent pulse in the dorsalis pedis artery. He is going to be discharged home on dual antiplatelet therapy and I will follow-up with the patient next week in the office Plan - Discharge Summary Discharge Rx Participant: No New Discharge Prescriptions: New Clopidogrel [Plavix] 75 mg PO DAILY #90 tab Continue Aspirin 81 mg PO DAILY chew Famotidine [Pepcid] 20 mg PO BID #60 tablet Colchicine 0.6 mg PO DAILY #3 tablet Metoprolol Tartrate [Lopressor] 50 mg PO DAILY Atorvastatin [Lipitor] 40 mg PO HS Albuterol Inhaler [Ventolin Hfa Inhaler] 2 puff INHALATION RT-QID PRN PRN Reason: Dyspnea levETIRAcetam [Keppra] 1,000 mg PO Q12HR hydrOXYzine HCL [Atarax] 50 mg PO TID PRN PRN Reason: Anxiety amLODIPine [Norvasc] 10 mg PO DAILY traZODone HCL 150 mg PO HS Buprenorphine HCl/Naloxone HCl [Suboxone 8 mg-2 mg Sl Film] 1 each SL BID Buprenorphine HCl/Naloxone HCl [Suboxone 2 mg-0.5 mg Sl Film] 1 each SL DAILY@1800 cloNIDine HCL [Catapres] 0.1 mg PO HS Ipratropium-Albuterol Nebulize [Duoneb 0.5 mg-3 mg/3 ml Soln] 3 ml INHALATION QID PRN PRN Reason: COPD sx Discharge Medication List Aspirin 81 mg PO DAILY chew 12/29/18 [Rx] Famotidine [Pepcid] 20 mg PO BID #60 tablet 12/29/18 [Rx] Colchicine 0.6 mg PO DAILY #3 tablet 03/19/19 [Rx] Albuterol Inhaler [Ventolin Hfa Inhaler] 2 puff INHALATION RT-QID PRN 08/09/19 [History] Atorvastatin [Lipitor] 40 mg PO HS 08/09/19 [History] Metoprolol Tartrate [Lopressor] 50 mg PO DAILY 08/09/19 [History] amLODIPine [Norvasc] 10 mg PO DAILY 08/09/19 [History] hydrOXYzine HCL [Atarax] 50 mg PO TID PRN 08/09/19 [History] levETIRAcetam [Keppra] 1,000 mg PO Q12HR 08/09/19 [History] traZODone HCL 150 mg PO HS 08/09/19 [History] Buprenorphine HCl/Naloxone HCl [Suboxone 2 mg-0.5 mg Sl Film] 1 each SL DAILY@1800 10/26/19 [History] Buprenorphine HCl/Naloxone HCl [Suboxone 8 mg-2 mg Sl Film] 1 each SL BID 10/26/19 [History] Ipratropium-Albuterol Nebulize [Duoneb 0.5 mg-3 mg/3 ml Soln] 3 ml INHALATION QID PRN 10/26/19 [History] cloNIDine HCL [Catapres] 0.1 mg PO HS 10/26/19 [History] Clopidogrel [Plavix] 75 mg PO DAILY #90 tab 10/30/19 [Rx] Follow up Appointment(s)/Referral(s): Daniel Downs MD [STAFF PHYSICIAN] - 11/04/19 4:15 pm (follow up appointment is on November 03 at 4:15 PM )
[2019-10-30] MEDS: levETIRAcetam 500 MG TAB PO SCH (09:21)
[2019-10-30] MEDS: FAMOTIDINE 20 MG TAB PO SCH (09:21)
[2019-10-30 09:42] VITALS: BP 164/75; PULSE 64; RESP 18; TEMP 98
--- NOTE | 2019-10-30 11:59 | AN ---
ANGIOGRAPHY REPORT DATE OF SERVICE: October 29, 2019 PERFORMING PHYSICIAN: Daniel Downs MD. PROCEDURE PERFORMED: 1. An atherectomy of the left superficial femoral artery using the orbital atherectomy device and using 1.5 mm solid maryjane. 2. Successful angioplasty and stenting of the left superficial femoral artery using Zilver PTX drug-coated stent with an excellent angiographic results. 3. Intravascular ultrasound IVUS of the left SFA. 4. Selective left SFA angiogram, left popliteal angiogram, and left [id number] angiogram. 5. Selective right common femoral artery angiogram. INDICATION: This is a 59-year-old gentleman with hypertension and dyslipidemia who sees Dr. Box in the office on a regular basis who was experiencing bilateral lower extremities intermittent claudication. He underwent an abdominal aortogram and bilateral lower extremities runoff several weeks ago and that revealed occluded bilateral SFA on long segment with area of occlusion extends from the ostium all the way to the Marquise canal. He was brought today to undergo an angioplasty of the left SFA. APPROACH: Right dorsalis pedis artery and left common femoral artery. COMPLICATION: None. LEVEL OF SEDATION: Moderate with sedation length of an hour and 20 minutes. PROCEDURE DESCRIPTION: After obtaining an informed consent, the patient was brought to the cardiac medical laboratory technicians. I decided to access the right dorsalis pedis artery and cross the BUILDING ASS[employer] in a retrograde technique because the anatomy was favoring that. So I accessed the left anterior tibial artery using micropuncture technique under ultrasound guidance, the micropuncture wire passed easily. Then I placed a 5/6 slender sheath. At that point, anticoagulation was initiated using heparin and continuous infusion of cocktail includes heparin, verapamil and nitroglycerin was initiated through the side-arm of the sheath. After that I did selective left anterior tibial artery to prove that I was in the true lumen. After that, I did cross the chronic total occlusion of the left SFA using a 018 mattson tip glidewire with the backup support of 0.018 CXI catheter. At that point, I was able to advance all the wire and advance the wire all the way through the left SFA to the left common femoral artery. I advanced a 018 CXI catheter over the wire and I injected contrast through the catheter to prove that I was in the true lumen. Subsequently, I did intravascular ultrasound IVUS of the left SFA which showed that I was in the true lumen all the way. To take a better picture of the left SFA and because the lesion start by the ostial SFA by the takeoff of the profunda and decided to access the right groin and go up and over and the take a better picture. So, the right common femoral artery was cannulated using micropuncture technique, the micropuncture wire passed easily. I did place a 55 cm 6-Salvadorean Raabe sheath at the right common femoral artery after I went up and over using 5-Salvadorean Rim catheter over a 0.035 [place] Advantage wire. I did after that atherectomy of the left SFA using the orbital atherectomy device from [employer] and using 1.5 mm solid maryjane. After that, I did balloon angioplasty of the SFA using a 5 mm x 250 mm balloon. The following angiogram showed good angiographic results for the midportion with dissection involving the proximal and distal portion of the left SFA. Because of that I decided to stent that. Distally I placed 6.0 x 140 mm Zilver PTX and proximally I placed a 7.0 x 60 mm Zilver PTX. Both stents were postdilated after that. Then for the mid left SFA, I ended up doing a drug-coated balloon which was 6 x 250. The final angiogram showed excellent angiographic results and the procedure was completed without any complication. After that, I pulled the left dorsalis pedis sheath out with 5 minutes of pressure. After that I did exchange my long sheath in the right groin into short sheath and finally I did selective right common femoral artery angiogram. The procedure was completed without any complication. POSTPROCEDURE MANAGEMENT: 1. Dual anti-platelet therapy. 2. Risk factor modifications. 3. Follow up with the patient. MMODL / IJN: [id number] /
== END 2019-10-30 09:43 | disposition home or self-care (01) ==
LOC: CATHCVL 07:52 → 3SCARD 11:45 → CATHCVL 23:09
PROVIDERS: ADMIT Internal Medicine Interventional Cardiology; ATTEND Internal Medicine Interventional Cardiology
DX: I70.213 Atherosclerosis of native arteries of extremities with intermittent claudication, bilateral legs (principal); I70.92 Chronic total occlusion of artery of the extremities; I10 Essential (primary) hypertension; E78.5 Hyperlipidemia, unspecified; J44.9 Chronic obstructive pulmonary disease, unspecified; R56.9 Unspecified convulsions; K21.9 Gastro-esophageal reflux disease without esophagitis; N28.9 Disorder of kidney and ureter, unspecified; F17.210 Nicotine dependence, cigarettes, uncomplicated; Z79.82 Long term (current) use of aspirin; Z79.899 Other long term (current) drug therapy; Z79.891 Long term (current) use of opiate analgesic
CPT/HCPCS: 37227; 37252; 80048 ×2; 85025 ×2; G0378 ×2; C1894 ×3; C1714; C1769 ×6; C1725 ×3; C1753; C1874 ×2; C2623; J2250; J1644 ×2; J2001; J3010; J1170 ×3; J2704; Q9966

== ENCOUNTER 2019-11-20 09:16 | Emergency (ER) | payer OTHER ==
--- NOTE | 2019-11-20 09:52 | ED ---
General Adult HPI <Deshawn Story - Last Filed: 11/20/19 11:25> - General Source: patient, RN notes reviewed Mode of arrival: ambulatory Limitations: no limitations <Ashwin Walsh - Last Filed: 11/20/19 11:31> - General Chief complaint: Recheck/Abnormal Lab/Rx Stated complaint: leg pain Time Seen by Provider: 11/20/19 09:23 - History of Present Illness Initial comments: This a 59-year-old male presents emergency Department chief complaint of left leg numbness and tingling. Patient states that has been on and off for last days. Denies any trauma. Patient states that he is concerned has he had stents placed on 10/[address] Downs for peripheral artery disease. Patient states that he feels is related to this. Denies any discoloration. Patient felt that his foot felt cold when he touches it is equal color and equal temperature patient denies any back pain but he states he is scheduled for a CT of his lumbar spine by his neurologist. Patient states symptoms seemed to radiate up and down leg. (Ashwin Walsh) - Related Data Home Medications Medication Instructions Recorded Confirmed Albuterol Inhaler [Ventolin Hfa 2 puff INHALATION RT-QID PRN 08/09/19 10/29/19 Inhaler] Atorvastatin [Lipitor] 40 mg PO HS 08/09/19 10/29/19 Metoprolol Tartrate [Lopressor] 50 mg PO DAILY 08/09/19 10/29/19 amLODIPine [Norvasc] 10 mg PO DAILY 08/09/19 10/29/19 hydrOXYzine HCL [Atarax] 50 mg PO TID PRN 08/09/19 10/29/19 levETIRAcetam [Keppra] 1,000 mg PO Q12HR 08/09/19 10/29/19 traZODone HCL 150 mg PO HS 08/09/19 10/29/19 Buprenorphine HCl/Naloxone HCl 1 each SL DAILY@1800 10/26/19 10/29/19 [Suboxone 2 mg-0.5 mg Sl Film] Buprenorphine HCl/Naloxone HCl 1 each SL BID 10/26/19 10/29/19 [Suboxone 8 mg-2 mg Sl Film] Ipratropium-Albuterol Nebulize 3 ml INHALATION QID PRN 10/26/19 10/29/19 [Duoneb 0.5 mg-3 mg/3 ml Soln] cloNIDine HCL [Catapres] 0.1 mg PO HS 10/26/19 10/29/19 Previous Rx's Medication Instructions Recorded Aspirin 81 mg PO DAILY chew 12/29/18 Famotidine [Pepcid] 20 mg PO BID #60 tablet 12/29/18 Colchicine 0.6 mg PO DAILY #3 tablet 03/19/19 Clopidogrel [Plavix] 75 mg PO DAILY #90 tab 10/30/19 metFORMIN HCL [Glucophage] 500 mg PO BID #30 tab 11/20/19 Allergies Allergy/AdvReac Type Severity Reaction Status Date / Time No Known Allergies Allergy Verified 11/20/19 09:22 Review of Systems ROS Other: All systems not noted in ROS Statement are negative. <Deshawn Story - Last Filed: 11/20/19 11:25> ROS Other: All systems not noted in ROS Statement are negative. <Ashwin Walsh - Last Filed: 11/20/19 11:31> ROS Statement: Those systems with pertinent positive or pertinent negative responses have been documented in the HPI. Past Medical History Past Medical History: Asthma, Coronary Artery Disease (CAD), COPD, GERD/Reflux, Hyperlipidemia, Hypertension, Musculoskeletal Disorder, Seizure Disorder, Vascular Disorder Additional Past Medical History / Comment(s): Hx bilat gout in feet; hx fx ribs, c/o ongoing back pain. 07/2019 had seizure. Hx renal impairment R/T Motrin use. History of Any Multi-Drug Resistant Organisms: None Reported Past Surgical History: Orthopedic Surgery, Tonsillectomy Additional Past Surgical History / Comment(s): left hand 5th finger tendon surgery. 08/11/19 Abd Aortogram, stents placed october 28 Past Anesthesia/Blood Transfusion Reactions: No Reported Reaction Past Psychological History: Anxiety, Depression Smoking Status: Never smoker Past Alcohol Use History: None Reported Past Drug Use History: Marijuana - Past Family History Father Family Medical History: No Reported History Additional Family Medical History / Comment(s): Father is alive and in his 70's Mother Family Medical History: Pneumonia Additional Family Medical History / Comment(s): Mother of pneumonia at the age of 52yrs. <Ashwin Walsh - Last Filed: 11/20/19 11:31> General Exam Limitations: no limitations General appearance: alert, in no apparent distress Head exam: Present: atraumatic, normocephalic, normal inspection Neck exam: Present: normal inspection, full ROM. Absent: tenderness, meningismus, lymphadenopathy Respiratory exam: Present: normal lung sounds bilaterally. Absent: respiratory distress, wheezes, rales, rhonchi, stridor Cardiovascular Exam: Present: regular rate, normal rhythm, normal heart sounds. Absent: systolic murmur, diastolic murmur, rubs, gallop, clicks GI/Abdominal exam: Present: soft, normal bowel sounds. Absent: distended, tenderness, guarding, rebound, rigid Extremities exam: Present: other (Bilateral lower extremity pulses are palpable greater in the left versus the right, there is equal color equal warmth full- strength a full range of motion lower extremities) Back exam: Present: normal inspection, full ROM. Absent: tenderness, paraspinal tenderness, vertebral tenderness Neurological exam: Present: alert, oriented X3, reflexes normal. Absent: motor sensory deficit Skin exam: Present: warm, dry, intact, normal color. Absent: rash <Ashwin Walsh - Last Filed: 11/20/19 11:31> Course <Deshawn Story - Last Filed: 11/20/19 11:25> Vital Signs 11/20/19 09:18 Temperature 98.2 F Pulse Rate 56 L Respiratory 18 Rate Blood Pressure 177/81 O2 Sat by Pulse 97 Oximetry - Reevaluation(s) Reevaluation #1: 11/20/19 11:25 I did discuss this patient's care with Dr. Maciel patient will be started on oral diabetic medication and follow-up in the office. He has responded to fluids and IV insulin. (Deshawn Story) Medical Decision Making - Lab Data Result diagrams: 11/20/19 09:42 11/20/19 09:42 <Deshawn Story - Last Filed: 11/20/19 11:25> - Lab Data Result diagrams: 11/20/19 09:42 11/20/19 09:42 <Ashwin Walsh - Last Filed: 11/20/19 11:31> - Medical Decision Making 59-year-old male presented for left leg pain paresthesias type symptoms. Patient concerned about his prior leg stent though he has normal pulses of his lower extremities better on his left than the right there is no discoloration no decrease in, with a normal neuro exam. Symptoms may be caused by lumbar His had symptoms persist neuropathy as he has a blood sugar over 400 and he has no history of diabetes. (Ashwin Walsh) - Lab Data Lab Results 11/20/19 11/20/19 11/20/19 Range/Units 09:42 09:42 09:42 WBC 14.7 H (3.8-10.6) k/uL RBC 4.76 (4.30-5.90) m/uL Hgb 13.7 (13.0-17.5) gm/dL Hct 41.4 (39.0-53.0) % MCV 87.0 (80.0-100.0) fL MCH 28.7 (25.0-35.0) pg MCHC 33.0 (31.0-37.0) g/dL RDW 12.8 (11.5-15.5) % Plt Count 330 (150-450) k/uL Neutrophils % 71 % Lymphocytes % 20 % Monocytes % 6 % Eosinophils % 2 % Basophils % 1 % Neutrophils # 10.4 H (1.3-7.7) k/uL Lymphocytes # 2.9 (1.0-4.8) k/uL Monocytes # 0.9 (0-1.0) k/uL Eosinophils # 0.3 (0-0.7) k/uL Basophils # 0.1 (0-0.2) k/uL PT 10.1 (9.0-12.0) sec INR 1.0 (<1.2) APTT 24.7 (22.0-30.0) sec Sodium 133 L (137-145) mmol/L Potassium 4.1 (3.5-5.1) mmol/L Chloride 91 L (98-107) mmol/L Carbon Dioxide 28 (22-30) mmol/L Anion Gap 14 mmol/L BUN 16 (9-20) mg/dL Creatinine 0.81 (0.66-1.25) mg/dL Est GFR (CKD-EPI)AfAm >90 (>60 ml/min/1.73 sqM) Est GFR (CKD-EPI)NonAf >90 (>60 ml/min/1.73 sqM) Glucose 423 H (74-99) mg/dL POC Glucose (mg/dL) (75-99) mg/dL POC Glu Ortho Tech ID Plasma Lactic Acid Mehul (0.7-2.0) mmol/L Calcium 9.5 (8.4-10.2) mg/dL Total Bilirubin 0.5 (0.2-1.3) mg/dL AST 18 (17-59) U/L ALT 11 (4-49) U/L Alkaline Phosphatase 69 (38-126) U/L Total Protein 7.6 (6.3-8.2) g/dL Albumin 5.0 (3.5-5.0) g/dL 11/20/19 11/20/19 Range/Units 09:42 11:06 WBC (3.8-10.6) k/uL RBC (4.30-5.90) m/uL Hgb (13.0-17.5) gm/dL Hct (39.0-53.0) % MCV (80.0-100.0) fL MCH (25.0-35.0) pg MCHC (31.0-37.0) g/dL RDW (11.5-15.5) % Plt Count (150-450) k/uL Neutrophils % % Lymphocytes % % Monocytes % % Eosinophils % % Basophils % % Neutrophils # (1.3-7.7) k/uL Lymphocytes # (1.0-4.8) k/uL Monocytes # (0-1.0) k/uL Eosinophils # (0-0.7) k/uL Basophils # (0-0.2) k/uL PT (9.0-12.0) sec INR (<1.2) APTT (22.0-30.0) sec Sodium (137-145) mmol/L Potassium (3.5-5.1) mmol/L Chloride (98-107) mmol/L Carbon Dioxide (22-30) mmol/L Anion Gap mmol/L BUN (9-20) mg/dL Creatinine (0.66-1.25) mg/dL Est GFR (CKD-EPI)AfAm (>60 ml/min/1.73 sqM) Est GFR (CKD-EPI)NonAf (>60 ml/min/1.73 sqM) Glucose (74-99) mg/dL POC Glucose (mg/dL) 270 H (75-99) mg/dL POC Glu Ortho Tech ID Joseluis Mccord Plasma Lactic Acid Mehul 2.3 H* (0.7-2.0) mmol/L Calcium (8.4-10.2) mg/dL Total Bilirubin (0.2-1.3) mg/dL AST (17-59) U/L ALT (4-49) U/L Alkaline Phosphatase (38-126) U/L Total Protein (6.3-8.2) g/dL Albumin (3.5-5.0) g/dL Disposition <Deshawn Story - Last Filed: 11/20/19 11:25> Is patient prescribed a controlled substance at d/c from ED?: No Time of Disposition: 11:30 <Ashwin Walsh - Last Filed: 11/20/19 11:31> Clinical Impression: Paresthesia of left leg, Diabetes mellitus, new onset Disposition: HOME SELF-CARE Condition: Stable Instructions (If sedation given, give patient instructions): Type 2 Diabetes in Adults: New Diagnosis (ED) Additional Instructions: Please return to the Emergency Department if symptoms worsen or any other concerns. Prescriptions: metFORMIN HCL [Glucophage] 500 mg PO BID #30 tab Referrals: Cayden Hennessy MD [Primary Care Provider] - 1-2 days
[2019-11-20 10:00] LABS: ALT 11 U/L (4-49); AST 18 U/L (17-59); African American GFR (CKD) >90 (>60 ml/min/1.73 sqM); Alkaline Phosphatase 69 U/L (38-126); Anion Gap 14 mmol/L; Blood Urea Nitrogen 16 mg/dL (9-20); Calcium 9.5 mg/dL (8.4-10.2); Carbon Dioxide 28 mmol/L (22-30); Chloride 91 mmol/L (98-107); Glucose 423 mg/dL (74-99); Non-African American GFR(CKD) >90 (>60 ml/min/1.73 sqM); Potassium 4.1 mmol/L (3.5-5.1); Sodium 133 mmol/L (137-145); Total Bilirubin 0.5 mg/dL (0.2-1.3); Total Protein 7.6 g/dL (6.3-8.2)
[2019-11-20 10:06] LABS: Partial Thromboplastin Time 24.7 sec (22.0-30.0); Prothrombin Time 10.1 sec (9.0-12.0)
[2019-11-20] MEDS ORDERED: SODIUM CHLORIDE 0.9% 2,000 ML IV ONE (10:07)
[2019-11-20] MEDS ORDERED: INSULIN REGULAR 100 UNIT/ML VIAL IV ONE (10:09)
[2019-11-20 10:15] LABS: Basophils # (A) 0.1 k/uL (0-0.2); Basophils % (A) 1 %; Eosinophils # (A) 0.3 k/uL (0-0.7); Eosinophils % (A) 2 %; HCT 41.4 % (39.0-53.0); HGB 13.7 gm/dL (13.0-17.5); Lymphocytes # (A) 2.9 k/uL (1.0-4.8); Lymphocytes % (A) 20 %; MCH 28.7 pg (25.0-35.0); Mean Platelet Volume 8.2; Monocytes # (A) 0.9 k/uL (0-1.0); Monocytes % (A) 6 %; Neutrophils # (A) 10.4 k/uL (1.3-7.7); Neutrophils % (A) 71 %; Platelet Count 330 k/uL (150-450); RBC 4.76 m/uL (4.30-5.90); RDW 12.8 % (11.5-15.5); WBC 14.7 k/uL (3.8-10.6)
--- NOTE | 2019-11-20 10:28 | CT ---
EXAMINATION TYPE: CT brain wo con DATE OF EXAM: 11/20/2019 COMPARISON: Previous study dated 07/23/2019 HISTORY: pain, seizures CT DLP: 1052.4 mGycm Automated exposure control for dose reduction was used. FINDINGS: Is encephalomalacia in the posterior left parietal region likely from previous infarct. Central structures are midline. There is no evidence hydrocephalus. No acute focal lesion, mass effec t or midline shift is seen. I do not see evidence of intracranial blood. There've been previous Coldwell Chan procedures both maxillary sinuses. There is mild, chronic mucoper iosteal thickening involving the right maxillary sinus. There is been a previous posterior ethmoidect troy bilaterally. There is some mucoperiosteal thickening involving the right sphenoid sinus. The mast oids are clear. The bony calvarium is intact. IMPRESSION: 1. NO ACUTE INTRACRANIAL ABNORMALITY. 2. EVIDENCE OF PREVIOUS SINUS SURGERY WAS CHRONIC MUCOPERIOSTEAL THICKENING INVOLVING THE RIGHT MAXIL ALEXANDRO AND SPHENOIDAL SINUSES. 3. 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
--- NOTE | 2019-11-20 10:35 | CT ---
EXAMINATION TYPE: CT lumbar spine wo con DATE OF EXAM: 11/20/2019 10:20 AM COMPARISON: None. HISTORY: Low back pain CT DLP: 1127.6 mGycm Automated exposure control for dose reduction was used. Unenhanced CT of the lumbar spine was performed. Bone and soft tissue window settings are submitted as well as coronal and sagittal reconstructions. FINDINGS: Visualized portions of the lungs are clear. There is moderate atheromatous calcification of the visualized arterial tree. Paraspinal soft tissues are otherwise unremarkable. There is mild wedging of the T12, L1 and L2 vertebral bodies, likely developmental. There is no spond ylolysis or spondylolisthesis. No fractures are seen. T12-L1: The intervertebral foramina are well maintained. There is no significant compressive discopat hy. The facets are unremarkable. L1-L2: The intervertebral foramina are well maintained. There is no significant compressive discopath y. There is mild hypertrophic changes in the facets. L2-L3: There is a bilobed disc displacement. Intervertebral foramina are widely maintained. There is hypertrophic change in the facets. L3-L4: There is a broad-based disc displacement. Intervertebral foramina are well maintained. There a re hypertrophic changes in the facets. L4-L5: There is a concentric disc displacement. This hypertrophic changes in the facets. There is mil d to moderate central canal stenosis. The intervertebral foramina are well maintained. L5-S1: Is a diffuse disc displacement. Intervertebral foramina are widely maintained. There is mild f acet arthropathy. IMPRESSION: 1. NO ACUTE OSSEOUS ABNORMALITY. 2. DEGENERATIVE DISC DISEASE. 3. DIFFUSE FACET ARTHROPATHY. 4. MILD TO MODERATE CENTRAL CANAL STENOSIS, L4-5 DUE TO A COMBINATION OF CONCENTRIC DISC DISPLACEMENT AND HYPERTROPHIC CHANGES IN THE FACETS.
[2019-11-20 11:10] LABS: Glucose,Whole Blood 270 mg/dL (75-99)
[2019-11-20 12:04] VITALS: BP 128/78; PULSE 78; RESP 16; TEMP 97.8
== END 2019-11-20 12:03 | disposition home or self-care (01) ==
LOC: EC 09:16
DX: E11.40 Type 2 diabetes mellitus with diabetic neuropathy, unspecified (principal); J44.9 Chronic obstructive pulmonary disease, unspecified; I10 Essential (primary) hypertension; E78.5 Hyperlipidemia, unspecified; I25.10 Atherosclerotic heart disease of native coronary artery without angina pectoris; F41.9 Anxiety disorder, unspecified; G40.909 Epilepsy, unspecified, not intractable, without status epilepticus; F32.9 Major depressive disorder, single episode, unspecified; Z79.899 Other long term (current) drug therapy; Z96.89 Presence of other specified functional implants
CPT/HCPCS: 36415; 70450; 72131; 80053; 83605; 85025; 85610; 85730; 96361; 96374; 99284

== ENCOUNTER 2019-12-09 12:54 | Observation (INO) | payer OTHER ==
[2019-12-09 13:29] LABS: Glucose,Whole Blood 108 mg/dL (75-99)
[2019-12-09] MEDS ORDERED: SODIUM CHLORIDE 0.9% 1,000 ML IV STA ×2 (13:29)
[2019-12-09] MEDS ORDERED: IPRATROPIUM-ALBUTEROL 3 ML NEB INHALATION STA (13:29)
--- NOTE | 2019-12-09 13:35 | ED ---
SOB HPI - General Source: patient, family, RN notes reviewed, old records reviewed Mode of arrival: ambulatory Limitations: no limitations <Naomi Bauman - Last Filed: 12/09/19 16:36> <Holli Isbell - Last Filed: 12/14/19 08:31> - General Chief Complaint: Shortness of Breath Stated Complaint: Shortness of breath Time Seen by Provider: 12/09/19 13:19 - History of Present Illness Initial Comments: Patient is a 59-year-old male with history of peripheral vascular disease with recent lower extremity stenting performing Dr. Downs. He presents today with his for concern for low oxygen level. He has a history of COPD. Patient had a coughing spell and his oxygen was as low as 72%. Patient reports that he has no chest pain at this time and is feeling less short of breath after coming to the ER. When he arrived here his oxygen levels 93% and was placed on oxygen. Patient states that he has no nausea or vomiting. He also has a recently diagnosed diabetic and reports his 's gave him his insulin and his blood sugar was 117. Patient is a former smoker. (Naomi Bauman) - Related Data Home Medications Medication Instructions Recorded Confirmed Albuterol Inhaler [Ventolin Hfa 2 puff INHALATION RT-QID PRN 08/09/19 12/09/19 Inhaler] Atorvastatin [Lipitor] 40 mg PO HS 08/09/19 12/09/19 hydrOXYzine HCL [Atarax] 50 mg PO TID PRN 08/09/19 12/09/19 levETIRAcetam [Keppra] 1,000 mg PO Q12HR 08/09/19 12/09/19 traZODone HCL 150 mg PO HS PRN 08/09/19 12/09/19 Buprenorphine HCl/Naloxone HCl 1 film SL BID 10/26/19 12/09/19 [Suboxone 8 mg-2 mg Sl Film] Ipratropium-Albuterol Nebulize 3 ml INHALATION QID PRN 10/26/19 12/09/19 [Duoneb 0.5 mg-3 mg/3 ml Soln] cloNIDine HCL [Catapres] 0.1 mg PO HS 10/26/19 12/09/19 amLODIPine [Norvasc] 10 mg PO DAILY 12/01/19 12/09/19 Empaglifloz/Linaglip/Metformin 1 tab PO DAILY 12/09/19 12/09/19 [Trijardy Xr 10-5-1,000 mg Tab] Ipratropium Nebulized [Atrovent 0.5 mg INHALATION RT-Q6H PRN 12/09/19 12/09/19 Nebulized 0.2 MG/ML] Pregabalin [Lyrica] 75 mg PO BID 12/09/19 12/09/19 Rivaroxaban [Xarelto] 10 mg PO BID 12/09/19 12/09/19 Previous Rx's Medication Instructions Recorded Aspirin 81 mg PO DAILY chew 12/29/18 Colchicine 0.6 mg PO DAILY #3 tablet 03/19/19 Azithromycin [Zithromax] 500 mg PO DAILY #2 tab 12/10/19 predniSONE See Taper PO DAILY #30 tab 12/10/19 Allergies Allergy/AdvReac Type Severity Reaction Status Date / Time No Known Allergies Allergy Verified 12/09/19 14:37 Review of Systems ROS Other: All systems not noted in ROS Statement are negative. <Naomi Bauman - Last Filed: 12/09/19 16:36> ROS Other: All systems not noted in ROS Statement are negative. <Holli Isbell - Last Filed: 12/14/19 08:31> ROS Statement: Those systems with pertinent positive or pertinent negative responses have been documented in the HPI. Past Medical History Past Medical History: Asthma, Coronary Artery Disease (CAD), COPD, GERD/Reflux, Hyperlipidemia, Hypertension, Musculoskeletal Disorder, Seizure Disorder, Vascular Disorder Additional Past Medical History / Comment(s): Hx bilat gout in feet; hx fx ribs, c/o ongoing back pain. 07/2019 had seizure. Hx renal impairment R/T Motrin use. History of Any Multi-Drug Resistant Organisms: None Reported Past Surgical History: Orthopedic Surgery, Tonsillectomy Additional Past Surgical History / Comment(s): left hand 5th finger tendon surgery. 08/11/19 Abd Aortogram, stents placed october 28 Past Anesthesia/Blood Transfusion Reactions: No Reported Reaction Past Psychological History: Anxiety, Depression Smoking Status: Never smoker Past Alcohol Use History: Abuse Past Drug Use History: Marijuana - Past Family History Father Family Medical History: No Reported History Additional Family Medical History / Comment(s): Father is alive and in his 70's Mother Family Medical History: Pneumonia Additional Family Medical History / Comment(s): Mother of pneumonia at the age of 52yrs. <Naomi Bauman - Last Filed: 12/09/19 16:36> General Exam Limitations: no limitations General appearance: alert, in no apparent distress Head exam: Present: atraumatic, normocephalic, normal inspection Eye exam: Present: normal appearance, PERRL, EOMI. Absent: scleral icterus, conjunctival injection, periorbital swelling ENT exam: Present: normal exam, mucous membranes moist Neck exam: Present: normal inspection. Absent: tenderness, meningismus, lymphadenopathy Respiratory exam: Present: wheezes (minimal), decreased breath sounds. Absent: normal lung sounds bilaterally, rales, rhonchi, stridor Cardiovascular Exam: Present: regular rate, normal rhythm, normal heart sounds. Absent: systolic murmur, diastolic murmur, rubs, gallop, clicks GI/Abdominal exam: Present: soft, normal bowel sounds. Absent: distended, tenderness, guarding, rebound, rigid Back exam: Present: normal inspection Neurological exam: Present: alert, oriented X3, CN II-XII intact <Naomi Bauman - Last Filed: 12/09/19 16:36> - General Exam Comments Initial Comments: 59-year-old male. (Naomi Bauman) Course Vital Signs 12/09/19 12/09/19 12/09/19 13:03 13:50 14:16 Temperature 98.7 F Pulse Rate 66 65 64 Respiratory 20 16 Rate Blood Pressure 111/66 108/65 O2 Sat by Pulse 93 L 100 Oximetry 12/09/19 12/09/19 12/09/19 14:27 14:40 16:20 Temperature Pulse Rate 66 75 53 L Respiratory 18 18 Rate Blood Pressure 117/67 95/61 O2 Sat by Pulse 98 88 L Oximetry 12/09/19 16:22 Temperature Pulse Rate Respiratory Rate Blood Pressure O2 Sat by Pulse 96 Oximetry Medical Decision Making - Lab Data Result diagrams: 12/09/19 13:49 12/09/19 13:49 <GwenNaomi ortiz - Last Filed: 12/09/19 16:36> - Lab Data Result diagrams: 12/10/19 10:22 12/10/19 10:22 <Holli Isbell - Last Filed: 12/14/19 08:31> - Medical Decision Making 59-year-old male presents emergency Department had episode of hypoxia, oxygen level was 72% after coughing spell. On exam Patient had slightly diminished lung sounds with stated he had no chest pain or other significant complaints. Patient has had recent peripheral vascular surgery by Dr. Downs. Patient appeared somewhat unwell. He was given DuoNeb treatment initially appointment stating he had some improvement with his breathing. In a mildly elevated d- dimer and CT chest and is completed. Negative for any acute process including PE. Troponin is negative and the rest of the blood work was unremarkable. Initially ablation was planned to be discharged however on discharge vitals he is found to be hypotensive blood pressure 92/60 and his oxygen levels dropped to 88% on room air. He was reevaluated and stated that he's had no significant complaint or distress. After the change in vital status Patient was also evaluated by Dr. Valdez. He agreed to give the Patient a second liter bolus and to admit the Patient for likely COPD exacerbation with IV steroids and breathing treatments. Dr. Isbell discussed the case with Dr. Hennessy. (Naomi Bauman) I was available for consultation in the emergency department. The history and physical exam were done by the midlevel provider. I was consulted for this patients care. I reviewed the case with the midlevel provider and based on their presentation of the patient, I agree with the assessment, medical decision making and plan of care as documented. I discussed the case with Dr. Hennessy who agreed to admit the patient. Chart was dictated using [employer] dictation software. Attempts were made to correct any dictation errors however some typographical errors may persist. (Holli Isbell) - Lab Data Lab Results 12/09/19 12/09/19 12/09/19 Range/Units 13:28 13:49 13:49 WBC 11.6 H (3.8-10.6) k/uL RBC 4.22 L (4.30-5.90) m/uL Hgb 11.8 L (13.0-17.5) gm/dL Hct 36.8 L (39.0-53.0) % MCV 87.2 (80.0-100.0) fL MCH 28.1 (25.0-35.0) pg MCHC 32.2 (31.0-37.0) g/dL RDW 13.4 (11.5-15.5) % Plt Count 317 (150-450) k/uL Neutrophils % 79 % Lymphocytes % 12 % Monocytes % 5 % Eosinophils % 2 % Basophils % 1 % Neutrophils # 9.2 H (1.3-7.7) k/uL Lymphocytes # 1.4 (1.0-4.8) k/uL Monocytes # 0.6 (0-1.0) k/uL Eosinophils # 0.2 (0-0.7) k/uL Basophils # 0.1 (0-0.2) k/uL PT 11.0 (9.0-12.0) sec INR 1.1 (<1.2) APTT 28.3 (22.0-30.0) sec D-Dimer 1.32 H (<0.60) mg/L FEU Sodium (137-145) mmol/L Potassium (3.5-5.1) mmol/L Chloride (98-107) mmol/L Carbon Dioxide (22-30) mmol/L Anion Gap mmol/L BUN (9-20) mg/dL Creatinine (0.66-1.25) mg/dL Est GFR (CKD-EPI)AfAm (>60 ml/min/1.73 sqM) Est GFR (CKD-EPI)NonAf (>60 ml/min/1.73 sqM) Glucose (74-99) mg/dL POC Glucose (mg/dL) 108 H (75-99) mg/dL POC Glu [employer] Director ID Mckeon, Silva Plasma Lactic Acid Mehul (0.7-2.0) mmol/L Calcium (8.4-10.2) mg/dL Magnesium (1.6-2.3) mg/dL Total Bilirubin (0.2-1.3) mg/dL AST (17-59) U/L ALT (4-49) U/L Alkaline Phosphatase (38-126) U/L Troponin I (0.000-0.034) ng/mL NT-Pro-B Natriuret Pep pg/mL Total Protein (6.3-8.2) g/dL Albumin (3.5-5.0) g/dL TSH (0.465-4.680) mIU/L Urine Color Urine Appearance (Clear) Urine pH (5.0-8.0) Ur Specific [place] (1.001-1.035) Urine Protein (Negative) Urine Glucose (UA) (Negative) Urine Ketones (Negative) Urine Blood (Negative) Urine Nitrite (Negative) Urine Bilirubin (Negative) Urine Urobilinogen (<2.0) mg/dL Ur Leukocyte Esterase (Negative) 12/09/19 12/09/19 12/09/19 Range/Units 13:49 13:49 13:49 WBC (3.8-10.6) k/uL RBC (4.30-5.90) m/uL Hgb (13.0-17.5) gm/dL Hct (39.0-53.0) % MCV (80.0-100.0) fL MCH (25.0-35.0) pg MCHC (31.0-37.0) g/dL RDW (11.5-15.5) % Plt Count (150-450) k/uL Neutrophils % % Lymphocytes % % Monocytes % % Eosinophils % % Basophils % % Neutrophils # (1.3-7.7) k/uL Lymphocytes # (1.0-4.8) k/uL Monocytes # (0-1.0) k/uL Eosinophils # (0-0.7) k/uL Basophils # (0-0.2) k/uL PT (9.0-12.0) sec INR (<1.2) APTT (22.0-30.0) sec D-Dimer (<0.60) mg/L FEU Sodium 139 (137-145) mmol/L Potassium 4.6 (3.5-5.1) mmol/L Chloride 99 (98-107) mmol/L Carbon Dioxide 30 (22-30) mmol/L Anion Gap 10 mmol/L BUN 16 (9-20) mg/dL Creatinine 0.90 (0.66-1.25) mg/dL Est GFR (CKD-EPI)AfAm >90 (>60 ml/min/1.73 sqM) Est GFR (CKD-EPI)NonAf >90 (>60 ml/min/1.73 sqM) Glucose 118 H (74-99) mg/dL POC Glucose (mg/dL) (75-99) mg/dL POC Glu [employer] Director ID Plasma Lactic Acid Mehul 1.5 (0.7-2.0) mmol/L Calcium 8.7 (8.4-10.2) mg/dL Magnesium 1.7 (1.6-2.3) mg/dL Total Bilirubin 0.4 (0.2-1.3) mg/dL AST 20 (17-59) U/L ALT 14 (4-49) U/L Alkaline Phosphatase 49 (38-126) U/L Troponin I <0.012 (0.000-0.034) ng/mL NT-Pro-B Natriuret Pep pg/mL Total Protein 6.1 L (6.3-8.2) g/dL Albumin 3.8 (3.5-5.0) g/dL TSH (0.465-4.680) mIU/L Urine Color Urine Appearance (Clear) Urine pH (5.0-8.0) Ur Specific [place] (1.001-1.035) Urine Protein (Negative) Urine Glucose (UA) (Negative) Urine Ketones (Negative) Urine Blood (Negative) Urine Nitrite (Negative) Urine Bilirubin (Negative) Urine Urobilinogen (<2.0) mg/dL Ur Leukocyte Esterase (Negative) 12/09/19 12/09/19 12/09/19 Range/Units 13:49 13:49 14:59 WBC (3.8-10.6) k/uL RBC (4.30-5.90) m/uL Hgb (13.0-17.5) gm/dL Hct (39.0-53.0) % MCV (80.0-100.0) fL MCH (25.0-35.0) pg MCHC (31.0-37.0) g/dL RDW (11.5-15.5) % Plt Count (150-450) k/uL Neutrophils % % Lymphocytes % % Monocytes % % Eosinophils % % Basophils % % Neutrophils # (1.3-7.7) k/uL Lymphocytes # (1.0-4.8) k/uL Monocytes # (0-1.0) k/uL Eosinophils # (0-0.7) k/uL Basophils # (0-0.2) k/uL PT (9.0-12.0) sec INR (<1.2) APTT (22.0-30.0) sec D-Dimer (<0.60) mg/L FEU Sodium (137-145) mmol/L Potassium (3.5-5.1) mmol/L Chloride (98-107) mmol/L Carbon Dioxide (22-30) mmol/L Anion Gap mmol/L BUN (9-20) mg/dL Creatinine (0.66-1.25) mg/dL Est GFR (CKD-EPI)AfAm (>60 ml/min/1.73 sqM) Est GFR (CKD-EPI)NonAf (>60 ml/min/1.73 sqM) Glucose (74-99) mg/dL POC Glucose (mg/dL) (75-99) mg/dL POC Glu [employer] Director ID Plasma Lactic Acid Mehul (0.7-2.0) mmol/L Calcium (8.4-10.2) mg/dL Magnesium (1.6-2.3) mg/dL Total Bilirubin (0.2-1.3) mg/dL AST (17-59) U/L ALT (4-49) U/L Alkaline Phosphatase (38-126) U/L Troponin I (0.000-0.034) ng/mL NT-Pro-B Natriuret Pep 328 pg/mL Total Protein (6.3-8.2) g/dL Albumin (3.5-5.0) g/dL TSH 0.673 (0.465-4.680) mIU/L Urine Color Yellow Urine Appearance Clear (Clear) Urine pH 5.0 (5.0-8.0) Ur Specific [place] 1.025 (1.001-1.035) Urine Protein Negative (Negative) Urine Glucose (UA) 4+ H (Negative) Urine Ketones Negative (Negative) Urine Blood Negative (Negative) Urine Nitrite Negative (Negative) Urine Bilirubin Negative (Negative) Urine Urobilinogen <2.0 (<2.0) mg/dL Ur Leukocyte Esterase Negative (Negative) 12/09/19 13:36 EKG performed at 1315 shows normal sinus rhythm with first-degree AV block. Otherwise normal EKG. Ventricular rate 62 bpm. MA interval is 222 ms. QRS duration is 86 ms. QT QTc is 410/416 ms. (Aranyos,Naomi) Disposition Is patient prescribed a controlled substance at d/c from ED?: No Time of Disposition: 15:58 <Naomi Bauman - Last Filed: 12/09/19 16:36> <Holli Isbell - Last Filed: 12/14/19 08:31> Clinical Impression: Dyspnea, COPD exacerbation Disposition: ADMITTED IP TO THIS HOSP Condition: Fair
[2019-12-09 13:59] LABS: Basophils # (A) 0.1 k/uL (0-0.2); Basophils % (A) 1 %; Eosinophils # (A) 0.2 k/uL (0-0.7); Eosinophils % (A) 2 %; HCT 36.8 % (39.0-53.0); HGB 11.8 gm/dL (13.0-17.5); Lymphocytes # (A) 1.4 k/uL (1.0-4.8); Lymphocytes % (A) 12 %; MCH 28.1 pg (25.0-35.0); MCHC 32.2 g/dL (31.0-37.0); MCV 87.2 fL (80.0-100.0); Mean Platelet Volume 7.4; Monocytes # (A) 0.6 k/uL (0-1.0); Monocytes % (A) 5 %; Neutrophils # (A) 9.2 k/uL (1.3-7.7); Neutrophils % (A) 79 %; Platelet Count 317 k/uL (150-450); RBC 4.22 m/uL (4.30-5.90); RDW 13.4 % (11.5-15.5); WBC 11.6 k/uL (3.8-10.6)
--- NOTE | 2019-12-09 14:02 | XR ---
EXAMINATION TYPE: XR chest 2V DATE OF EXAM: 12/09/2019 COMPARISON: Prior chest x-ray July 23, 2019 HISTORY: Shortness of breath. TECHNIQUE: Frontal and lateral views of the chest are obtained. FINDINGS: There is background chronic parenchymal fibrotic change without suspicious new focal air s pace opacity, pleural effusion, or pneumothorax seen bilaterally. The cardiac silhouette size is upp er limits of normal. The osseous structures are demineralized. IMPRESSION: Chronic changes without acute pulmonary process.
[2019-12-09 14:13] LABS: ALT 14 U/L (4-49); AST 20 U/L (17-59); African American GFR (CKD) >90 (>60 ml/min/1.73 sqM); Albumin 3.8 g/dL (3.5-5.0); Alkaline Phosphatase 49 U/L (38-126); Anion Gap 10 mmol/L; Blood Urea Nitrogen 16 mg/dL (9-20); Calcium 8.7 mg/dL (8.4-10.2); Carbon Dioxide 30 mmol/L (22-30); Chloride 99 mmol/L (98-107); Glucose 118 mg/dL (74-99); Magnesium 1.7 mg/dL (1.6-2.3); Non-African American GFR(CKD) >90 (>60 ml/min/1.73 sqM); Potassium 4.6 mmol/L (3.5-5.1); Sodium 139 mmol/L (137-145); Total Bilirubin 0.4 mg/dL (0.2-1.3); Total Protein 6.1 g/dL (6.3-8.2)
[2019-12-09 14:16] LABS: INR 1.1 (<1.2); Partial Thromboplastin Time 28.3 sec (22.0-30.0)
[2019-12-09 14:44] LABS: D-Dimer 1.32 mg/L FEU (<0.60)
[2019-12-09 15:18] LABS: Appearance,Urine Clear (Clear); Bilirubin,Urine Negative (Negative); Blood,Urine Negative (Negative); Color,Urine Yellow; Glucose,Urine (UA) 4+ (Negative); Ketones,Urine Negative (Negative); Leukocyte Esterase,Urine Negative (Negative); Nitrite,Urine Negative (Negative); Protein,Urine Negative (Negative); Specific Gravity,Urine 1.025 (1.001-1.035); Urobilinogen,Urine <2.0 mg/dL (<2.0)
--- NOTE | 2019-12-09 15:23 | CT ---
EXAMINATION TYPE: CT chest angio for PE DATE OF EXAM: 12/09/2019 COMPARISON: Chest x-ray earlier today HISTORY: Positive d-dimer. Symptoms of shortness of breath earlier today. CT DLP: 606.6 mGycm. Automated Exposure Control for Dose Reduction was Utilized. CONTRAST: CTA scan of the thorax is performed with IV Contrast, patient injected with 100 mL of Isovue 370, pul monary embolism protocol. MIP Images are created on CT scanner and reviewed. FINDINGS: Exam suboptimal as there is motion artifact degradation, patient unable to hold breath. Thi s limits evaluation for subcentimeter nodules LUNGS: There is linear scarring or atelectasis in the posterior left lung base. There is atelectatic change in the posterior right upper lobe along the fissure. No suspicious consolidation. No concerni ng pulmonary masses There is no pleural effusion or pneumothorax seen. The tracheobronchial tree is patent. MEDIASTINUM: There is slightly suboptimal study with near equal contrast from right and left heart sy stems and motion artifact degradation but no convincing CT evidence for significant central pulmonary embolism. No thoracic aortic aneurysm or dissection. There are no greater than 1 cm hilar or medias tinal lymph nodes. No cardiomegaly or pericardial effusion is seen. OTHER: No additional significant abnormality is seen. IMPRESSION: No CTA evidence for acute central pulmonary embolism. No suspicious acute pulmonary infil trate.
[2019-12-09] MEDS ORDERED: methylPREDNISolone SOD SUCCI 125 MG/2 ML VIAL IV STA (16:35)
[2019-12-09] MEDS ORDERED: SODIUM CHLORIDE 0.9% 1,000 ML IV ONE (16:35)
[2019-12-09 17:43] LABS: Glucose,Whole Blood 115 mg/dL (75-99)
[2019-12-09] MEDS ORDERED: traZODone HCL 50 MG TAB PO PRN (19:06)
[2019-12-09] MEDS: IPRATROPIUM-ALBUTEROL 3 ML NEB INHALATION PRN (19:46)
[2019-12-09] MEDS: BUDESONIDE 0.5 MG/2 ML NEBU INHALATION SCH (19:46)
[2019-12-09] MEDS ORDERED: cloNIDine HCL 0.1 MG TAB PO SCH (21:00)
[2019-12-09] MEDS: RIVAROXABAN 10 MG TAB PO SCH (22:19)
[2019-12-09] MEDS: PREGABALIN 75 MG CAP PO SCH (22:19)
[2019-12-09] MEDS: levETIRAcetam 500 MG TAB PO SCH (22:19)
[2019-12-09] MEDS: INSULIN ASPART (NovoLOG) 100 UNIT/ML VIAL SQ SCH (22:20)
[2019-12-09 22:21] LABS: Glucose,Whole Blood 178 mg/dL (75-99)
[2019-12-09] MEDS: methylPREDNISolone SOD SUCCI 125 MG/2 ML VIAL IV SCH (23:44)
[2019-12-10 03:03] VITALS: RESP 16
[2019-12-10] MEDS ORDERED: IBUPROFEN 600 MG TAB PO STA (05:42)
[2019-12-10] MEDS: methylPREDNISolone SOD SUCCI 125 MG/2 ML VIAL IV SCH (05:47)
[2019-12-10 06:06] LABS: Glucose,Whole Blood 188 mg/dL (75-99)
[2019-12-10] MEDS ORDERED: NON FORMULARY DRUG PO SCH (07:30)
[2019-12-10] MEDS ORDERED: LINAGLIPTIN 5 MG TABLET PO SCH (07:30)
[2019-12-10] MEDS ORDERED: metFORMIN 500 MG TAB PO SCH ×2 (07:30)
[2019-12-10] MEDS: INSULIN ASPART (NovoLOG) 100 UNIT/ML VIAL SQ SCH (07:48)
[2019-12-10] MEDS: IPRATROPIUM-ALBUTEROL 3 ML NEB INHALATION PRN ×2 (07:56→11:18)
[2019-12-10] MEDS: BUDESONIDE 0.5 MG/2 ML NEBU INHALATION SCH (07:56)
[2019-12-10] MEDS ORDERED: amLODIPine 10 MG TAB PO SCH (09:00)
[2019-12-10] MEDS ORDERED: ASPIRIN 81 MG PO SCH (09:00)
[2019-12-10] MEDS ORDERED: METOPROLOL TARTRATE 25 MG TAB PO SCH (09:00)
[2019-12-10] MEDS ORDERED: METOPROLOL TARTRATE 50 MG TAB PO SCH (09:00)
[2019-12-10] MEDS ORDERED: AZITHROMYCIN 500 MG TAB PO SCH (09:00)
[2019-12-10] MEDS ORDERED: COLCHICINE 0.6 MG EACH PO SCH (09:00)
[2019-12-10] MEDS: levETIRAcetam 500 MG TAB PO SCH (09:08)
[2019-12-10] MEDS: PREGABALIN 75 MG CAP PO SCH (09:08)
[2019-12-10] MEDS: RIVAROXABAN 10 MG TAB PO SCH (09:15)
[2019-12-10 10:51] VITALS: BP 162/81; TEMP 98.5
[2019-12-10 10:58] LABS: Basophils % (A) 0 %; Eosinophils % (A) 0 %; HCT 37.1 % (39.0-53.0); HGB 11.5 gm/dL (13.0-17.5); Lymphocytes # (A) 0.7 k/uL (1.0-4.8); Lymphocytes % (A) 6 %; MCH 27.4 pg (25.0-35.0); MCHC 31.1 g/dL (31.0-37.0); MCV 87.9 fL (80.0-100.0); Mean Platelet Volume 7.6; Monocytes # (A) 0.3 k/uL (0-1.0); Monocytes % (A) 2 %; Neutrophils # (A) 12.1 k/uL (1.3-7.7); Neutrophils % (A) 92 %; Platelet Count 342 k/uL (150-450); RBC 4.22 m/uL (4.30-5.90); RDW 13.6 % (11.5-15.5); WBC 13.1 k/uL (3.8-10.6)
[2019-12-10 11:13] LABS: African American GFR (CKD) >90 (>60 ml/min/1.73 sqM); Anion Gap 11 mmol/L; Blood Urea Nitrogen 20 mg/dL (9-20); Calcium 8.7 mg/dL (8.4-10.2); Carbon Dioxide 25 mmol/L (22-30); Chloride 101 mmol/L (98-107); Glucose 147 mg/dL (74-99); Magnesium 1.7 mg/dL (1.6-2.3); Non-African American GFR(CKD) >90 (>60 ml/min/1.73 sqM); Potassium 3.8 mmol/L (3.5-5.1); Sodium 137 mmol/L (137-145)
[2019-12-10 11:34] VITALS: PULSE 64
[2019-12-10 12:03] LABS: Glucose,Whole Blood 139 mg/dL (75-99)
--- NOTE | 2019-12-10 12:07 | P.CRDCN ---
History of Present Illness History of present illness: HISTORY OF PRESENTING ILLNESS This is a pleasant 59-year-old male past medical history significant for peripheral vascular disease, hypertension, dyslipidemia and chronic nicotine dependence. He follows in the office with Dr. Box. We have been asked to see in consultation for bradycardia. Who presented to the hospital yesterday with symptoms of all over just not feeling well. The patient states he was "with drawing". His dose of Biaxin has recently been decreased according to the patient. His pulse ox at home was in the 70% range according to his . He had no symptoms of chest pain, shortness of breath, dizziness or palpitations. While being observed in the hospital telemetry tracings revealed sinus bradycardia. He is currently maintained on metoprolol 50 mg daily. Blood pressure 162/81 heart rate resting currently at 72. X-ray data reviewed, WBC 13.1, hemoglobin 11.5, platelets 342, sodium 137, potassium 3.8, creatinine 0.78, magnesium 1.7, cardiac enzymes negative 1, NT proBNP 328, TSH 0.673. EKG on arrival reveals sinus bradycardia with first-degree AV block heart rate in the 50s. No acute ischemic changes noted. He recently underwent successful atherectomy and PCI bilateral SFA. Maintained on Xarelto 10 mg twice a day, aspirin 81 mg daily, Lopressor 50 mg daily, amlodipine 10 mg daily, clonidine 0.1 mg at that time and atorvastatin 40 mg daily. Most recent echocardiogram obtained 2018 revealed preserved LV systolic function. He underwent stress test 02/2019 was normal with no ischemia. REVIEW OF SYSTEMS At the time of my exam: CONSTITUTIONAL: Denies fever or chills. CARDIOVASCULAR: Denies chest pain, shortness of breath, orthopnea, PND or palpitations. RESPIRATORY: Denies cough. GASTROINTESTINAL: Denies abdominal pain, diarrhea, constipation, nausea or vomiting. MUSCULOSKELETAL: Denies myalgias. NEUROLOGIC: Denies numbness, tingling or weakness. ENDOCRINE: Denies fatigue, weight change, polydipsia or polyurina. GENITOURINARY: Denies burning, hematuria or urgency with micturation. HEMATOLOGIC: Denies history of anemia or bleeding. PHYSICAL EXAMINATION CONSTITUTIONAL: No apparent distress. HEENT: Head is normocephalic. Pupils are equal, round. Sclerae anicteric. Mucous membranes of the mouth are moist. No JVD. No carotid bruit. CHEST EXAMINATION: Lungs are clear to auscultation. No chest wall tenderness is noted on palpation or with deep breathing. Diminished bilaterally. HEART EXAMINATION: Regular rate and rhythm. S1, S2 heard. No murmurs, gallops or rub. ABDOMEN: Soft, nontender. Positive bowel sounds. EXTREMITIES: 2+ peripheral pulses, no lower extremity edema and no calf tenderness. NEUROLOGIC EXAMINATION: Patient is awake, alert and oriented x3. ASSESSMENT Sinus bradycardia COPD Hypoxia Peripheral vascular disease s/p bilateral SFA athretomy and PCI Hypertension Dyslipidemia PLAN Discontinue beta blockers completely. Ongoing medical management for hypoxia and withdrawal symptoms. Follow up with Dr. Box in the office upon discharge Thank you kindly for this consultation. Nurse Practitioner note has been reviewed, I agree with a documented findings and plan of care. Patient was seen and examined. Past Medical History Past Medical History: Asthma, Coronary Artery Disease (CAD), COPD, GERD/Reflux, Hyperlipidemia, Hypertension, Musculoskeletal Disorder, Seizure Disorder, Vascular Disorder Additional Past Medical History / Comment(s): Hx bilat gout in feet; hx fx ribs, c/o ongoing back pain. 07/2019 had seizure. Hx renal impairment R/T Motrin use. recent stents for PAD both legs 11/28/19 History of Any Multi-Drug Resistant Organisms: None Reported Past Surgical History: Orthopedic Surgery, Tonsillectomy Additional Past Surgical History / Comment(s): left hand 5th finger tendon surgery. 08/11/19 Abd Aortogram, stents placed october 28 Past Anesthesia/Blood Transfusion Reactions: No Reported Reaction Past Psychological History: Anxiety, Depression Additional Psychological History / Comment(s): "seems worse since seizure 07/2019." Hx claustrophobia Smoking Status: Former smoker Past Alcohol Use History: Abuse Additional Past Alcohol Use History / Comment(s): quit smoking 07-22-, smoked since 1979, up to 2 ppd. He states he used to drink 6-7 liquor beverages a day, quit drinking 11/2018. Past Drug Use History: Marijuana Additional Drug Use History / Comment(s): pt states he smokes marijuana occasionally, none now per . Had hx pain Rx abuse. - Past Family History Father Family Medical History: No Reported History Additional Family Medical History / Comment(s): Father is alive and in his 70's Mother Family Medical History: Pneumonia Additional Family Medical History / Comment(s): Mother of pneumonia at the age of 52yrs. Medications and Allergies Home Medications Medication Instructions Recorded Confirmed Type Aspirin 81 mg PO DAILY chew 12/29/18 12/09/19 Rx Colchicine 0.6 mg PO DAILY #3 tablet 03/19/19 12/09/19 Rx Albuterol Inhaler [Ventolin Hfa 2 puff INHALATION RT-QID PRN 08/09/19 12/09/19 History Inhaler] Atorvastatin [Lipitor] 40 mg PO HS 08/09/19 12/09/19 History hydrOXYzine HCL [Atarax] 50 mg PO TID PRN 08/09/19 12/09/19 History levETIRAcetam [Keppra] 1,000 mg PO Q12HR 08/09/19 12/09/19 History traZODone HCL 150 mg PO HS PRN 08/09/19 12/09/19 History Buprenorphine HCl/Naloxone HCl 1 film SL BID 10/26/19 12/09/19 History [Suboxone 8 mg-2 mg Sl Film] Ipratropium-Albuterol Nebulize 3 ml INHALATION QID PRN 10/26/19 12/09/19 History [Duoneb 0.5 mg-3 mg/3 ml Soln] cloNIDine HCL [Catapres] 0.1 mg PO HS 10/26/19 12/09/19 History amLODIPine [Norvasc] 10 mg PO DAILY 12/01/19 12/09/19 History Empaglifloz/Linaglip/Metformin 1 tab PO DAILY 12/09/19 12/09/19 History [Trijardy Xr 10-5-1,000 mg Tab] Empagliflozin/Metformin HCl 1 tab PO HS 12/09/19 12/09/19 History [Synjardy 5-1,000 mg Tablet] Ipratropium Nebulized [Atrovent 0.5 mg INHALATION RT-Q6H PRN 12/09/19 12/09/19 History Nebulized 0.2 MG/ML] Pregabalin [Lyrica] 75 mg PO BID 12/09/19 12/09/19 History Rivaroxaban [Xarelto] 10 mg PO BID 12/09/19 12/09/19 History Allergies Allergy/AdvReac Type Severity Reaction Status Date / Time No Known Allergies Allergy Verified 12/09/19 14:37 Physical Exam Vitals: Vital Signs Temp Pulse Pulse Resp BP BP BP 12/10/19 08:11 56 L 12/10/19 07:58 56 L 12/10/19 03:00 97.7 F 53 L 16 115/58 12/09/19 23:48 61 108/56 12/09/19 22:15 58 L 99/57 12/09/19 20:07 60 12/09/19 19:47 58 L 12/09/19 19:46 54 L 12/09/19 19:41 97.6 F 54 L 18 101/60 12/09/19 17:47 98.1 F 70 16 124/63 12/09/19 16:22 12/09/19 16:20 53 L 18 95/61 12/09/19 14:40 75 18 117/67 12/09/19 14:27 66 12/09/19 14:16 64 12/09/19 13:50 65 16 108/65 12/09/19 13:03 98.7 F 66 20 111/66 Pulse Ox 12/10/19 08:11 12/10/19 07:58 12/10/19 03:00 99 12/09/19 23:48 96 12/09/19 22:15 12/09/19 20:07 12/09/19 19:47 98 12/09/19 19:46 12/09/19 19:41 95 12/09/19 17:47 98 12/09/19 16:22 96 12/09/19 16:20 88 L 12/09/19 14:40 98 12/09/19 14:27 12/09/19 14:16 12/09/19 13:50 100 12/09/19 13:03 93 L Intake and Output 12/09/19 12/10/19 12/10/19 22:59 06:59 14:59 Other: Voiding Method Toilet Toilet # Voids 1 1 Weight 82.16 kg Results 12/10/19 10:22 12/10/19 10:22 Cardiac Enzymes 12/09/19 12/09/19 Range/Units 13:49 13:49 AST 20 (17-59) U/L Troponin I <0.012 (0.000-0.034) ng/mL Coagulation 12/09/19 Range/Units 13:49 PT 11.0 (9.0-12.0) sec APTT 28.3 (22.0-30.0) sec CBC 12/09/19 Range/Units 13:49 WBC 11.6 H (3.8-10.6) k/uL RBC 4.22 L (4.30-5.90) m/uL Hgb 11.8 L (13.0-17.5) gm/dL Hct 36.8 L (39.0-53.0) % Plt Count 317 (150-450) k/uL Comprehensive Metabolic Panel 12/09/19 Range/Units 13:49 Sodium 139 (137-145) mmol/L Potassium 4.6 (3.5-5.1) mmol/L Chloride 99 (98-107) mmol/L Carbon Dioxide 30 (22-30) mmol/L BUN 16 (9-20) mg/dL Creatinine 0.90 (0.66-1.25) mg/dL Glucose 118 H (74-99) mg/dL Calcium 8.7 (8.4-10.2) mg/dL AST 20 (17-59) U/L ALT 14 (4-49) U/L Alkaline Phosphatase 49 (38-126) U/L Total Protein 6.1 L (6.3-8.2) g/dL Albumin 3.8 (3.5-5.0) g/dL Current Medications Generic Name Dose Route Start Last Admin Trade Name Freq PRN Reason Stop Dose Admin Albuterol/Ipratropium 3 ml 12/09/19 16:38 12/10/19 07:56 Duoneb 0.5 Mg-3 Mg/3 Ml Soln INHALATION 3 ml RT-Q4H PRN Administration Shortness Of Breath Or Wheezing Amlodipine Besylate 10 mg 12/10/19 09:00 12/10/19 09:07 Norvasc PO 10 mg DAILY CHERRY Administration Aspirin 81 mg 12/10/19 09:00 12/10/19 09:07 Aspirin PO 81 mg DAILY CHERRY Administration Azithromycin 500 mg 12/10/19 09:00 12/10/19 09:07 Zithromax PO 500 mg DAILY CHERRY Administration Budesonide 0.5 mg 12/09/19 20:00 12/10/19 07:56 Pulmicort INHALATION 0.5 mg RT-BID CHERRY Administration Clonidine 0.1 mg 12/09/19 21:00 12/09/19 22:19 Catapres PO Not Given HS CHERRY Colchicine 0.6 mg 12/10/19 09:00 12/10/19 09:07 Colcrys PO 0.6 mg DAILY CHERRY Administration Insulin Aspart 0 unit 12/09/19 21:00 12/10/19 07:48 Novolog SQ 100 unit ACHS CHERRY Administration Protocol Levetiracetam 1,000 mg 12/09/19 21:00 12/10/19 09:08 Keppra PO 1,000 mg Q12HR CHERRY Administration Linagliptin 5 mg 12/10/19 07:30 12/10/19 07:47 Tradjenta PO 5 mg DAILY@0730 CHERRY Administration Metformin HCl 1,000 mg 12/10/19 07:30 12/10/19 07:47 Glucophage PO 1,000 mg W/[id number] CHERRY Administration Methylprednisolone Sodium Succinate 60 mg 12/10/19 00:00 12/10/19 05:47 Solu-Medrol IV 60 mg Q6HR CHERRY Administration Buprenorphine Hcl/ 1 film 12/09/19 21:00 12/10/19 09:18 Naloxone Hcl [ SUBLINGUAL Not Given Suboxone 8 Mg-2 Mg BID [facility] Sl Film] Non-Formulary Medication 1 each 12/10/19 07:30 12/10/19 09:17 Non Formulary Drug PO Not Given DAILY@0730 [facility] Pregabalin 75 mg 12/09/19 21:00 12/10/19 09:08 Lyrica PO 75 mg BID CHERRY Administration Rivaroxaban 10 mg 12/09/19 21:00 12/10/19 09:15 Xarelto PO 10 mg BID CHERRY Administration Trazodone HCl 150 mg 12/09/19 19:06 Desyrel PO HS PRN sleeping Intake and Output 12/09/19 12/10/19 12/10/19 22:59 06:59 14:59 Other: Voiding Method Toilet Toilet # Voids 1 1 Weight 82.16 kg 12/09/19 13:49 12/09/19 13:49
--- NOTE | 2019-12-10 13:11 | P.HPIM ---
History of Present Illness H&P Date: 12/10/19 Chief Complaint: low home pulse oximeter reading his is an anxious 59-year-old white male patient of mine. He is in substance use disorder treatment in my office. He has a history of CAD goout, COPD, and PVD.He was brought to the ER by his after a home pulse ox reading in the 70s. Initial work up in the emergency room had no significant findings including chest x-ray & CTA. He was later put in OBV when h a pulse ox of 88% was found before ER D/C.. Currently he has no complaints of chest pains, pressures, shortness of breath, nausea or vomiting. Hes unsure why they kept him. Indicates the CTA test was very painful when they injected the .Currently this morning he is upset about being here and is having some withdrawals from missing his Suboxone opioid treatment medication, HE is requesting discharge home.He states he will leave AM A if not D/C soon. Overnight telemetry questioned a pause on his heart monitor without arrythmia. Past Medical History Past Medical History: Asthma, Coronary Artery Disease (CAD), COPD, GERD/Reflux, Hyperlipidemia, Hypertension, Musculoskeletal Disorder, Seizure Disorder, Vascular Disorder Additional Past Medical History / Comment(s): Hx bilat gout in feet; hx fx ribs, c/o ongoing back pain. 07/2019 had seizure. Hx renal impairment R/T Motrin use. recent stents for PAD both legs 11/28/19 History of Any Multi-Drug Resistant Organisms: None Reported Past Surgical History: Orthopedic Surgery, Tonsillectomy Additional Past Surgical History / Comment(s): left hand 5th finger tendon surgery. 08/11/19 Abd Aortogram, stents placed october 28 Past Anesthesia/Blood Transfusion Reactions: No Reported Reaction Past Psychological History: Anxiety, Depression Additional Psychological History / Comment(s): "seems worse since seizure 07/2019." Hx claustrophobia Smoking Status: Former smoker Past Alcohol Use History: Abuse Additional Past Alcohol Use History / Comment(s): quit smoking 07-23-19, smoked since 1979, up to 2 ppd. He states he used to drink 6-7 liquor beverages a day, quit drinking 11/2018. Past Drug Use History: Marijuana Additional Drug Use History / Comment(s): pt states he smokes marijuana occasionally, none now per . Had hx pain Rx abuse. - Past Family History Father Family Medical History: No Reported History Additional Family Medical History / Comment(s): Father is alive and in his 70's Mother Family Medical History: Pneumonia Additional Family Medical History / Comment(s): Mother of pneumonia at the age of 52yrs. Medications and Allergies Home Medications Medication Instructions Recorded Confirmed Type Aspirin 81 mg PO DAILY chew 12/29/18 12/09/19 Rx Colchicine 0.6 mg PO DAILY #3 tablet 03/19/19 12/09/19 Rx Albuterol Inhaler [Ventolin Hfa 2 puff INHALATION RT-QID PRN 08/09/19 12/09/19 History Inhaler] Atorvastatin [Lipitor] 40 mg PO HS 08/09/19 12/09/19 History hydrOXYzine HCL [Atarax] 50 mg PO TID PRN 08/09/19 12/09/19 History levETIRAcetam [Keppra] 1,000 mg PO Q12HR 08/09/19 12/09/19 History traZODone HCL 150 mg PO HS PRN 08/09/19 12/09/19 History Buprenorphine HCl/Naloxone HCl 1 film SL BID 10/26/19 12/09/19 History [Suboxone 8 mg-2 mg Sl Film] Ipratropium-Albuterol Nebulize 3 ml INHALATION QID PRN 10/26/19 12/09/19 History [Duoneb 0.5 mg-3 mg/3 ml Soln] cloNIDine HCL [Catapres] 0.1 mg PO HS 10/26/19 12/09/19 History amLODIPine [Norvasc] 10 mg PO DAILY 12/01/19 12/09/19 History Empaglifloz/Linaglip/Metformin 1 tab PO DAILY 12/09/19 12/09/19 History [Trijardy Xr 10-5-1,000 mg Tab] Empagliflozin/Metformin HCl 1 tab PO HS 12/09/19 12/09/19 History [Synjardy 5-1,000 mg Tablet] Ipratropium Nebulized [Atrovent 0.5 mg INHALATION RT-Q6H PRN 12/09/19 12/09/19 History Nebulized 0.2 MG/ML] Pregabalin [Lyrica] 75 mg PO BID 12/09/19 12/09/19 History Rivaroxaban [Xarelto] 10 mg PO BID 12/09/19 12/09/19 History Allergies Allergy/AdvReac Type Severity Reaction Status Date / Time No Known Allergies Allergy Verified 12/09/19 14:37 Physical Exam Vitals: Vital Signs Temp Pulse Pulse Resp BP BP BP 12/10/19 11:34 64 12/10/19 11:20 60 12/10/19 09:00 98.5 F 72 16 162/81 12/10/19 08:11 56 L 12/10/19 07:58 56 L 12/10/19 03:00 97.7 F 53 L 16 115/58 12/09/19 23:48 61 108/56 12/09/19 22:15 58 L 99/57 12/09/19 20:07 60 12/09/19 19:47 58 L 12/09/19 19:46 54 L 12/09/19 19:41 97.6 F 54 L 18 101/60 12/09/19 17:47 98.1 F 70 16 124/63 12/09/19 16:22 12/09/19 16:20 53 L 18 95/61 12/09/19 14:40 75 18 117/67 12/09/19 14:27 66 12/09/19 14:16 64 12/09/19 13:50 65 16 108/65 12/09/19 13:03 98.7 F 66 20 111/66 Pulse Ox 12/10/19 11:34 12/10/19 11:20 12/10/19 09:00 93 L 12/10/19 08:11 12/10/19 07:58 12/10/19 03:00 99 12/09/19 23:48 96 12/09/19 22:15 12/09/19 20:07 12/09/19 19:47 98 12/09/19 19:46 12/09/19 19:41 95 12/09/19 17:47 98 12/09/19 16:22 96 12/09/19 16:20 88 L 12/09/19 14:40 98 12/09/19 14:27 12/09/19 14:16 12/09/19 13:50 100 12/09/19 13:03 93 L Intake and Output 12/09/19 12/10/19 12/10/19 22:59 06:59 14:59 Other: Voiding Method Toilet Toilet # Voids 1 1 1 Weight 82.16 kg General: The patient is awake and alert, in some emotioanl distress about being in the hosptial, and does not appear acutely ill. he is of normal weight, Neck: The neck is supple, there is no thyromegaly, lymphadenopathy, tenderness or JVD. Cardiovascular: S1S2 is normal, There is a regular rate and rhythm. No murmur, r ub or gallop is appreciated. Respiratory: Lungs are coarse to auscultation bilaterally, respirations are non- labored, breath sounds are equal. Gastrointestinal: Soft, non-distended, non-tender abdomen without masses or organomegaly noted. There is no rebound or guarding present. Bowel sounds are u nremarkable. Musculoskeletal: Normal ROM, no tenderness, There is no pedal edema. There is no calf tenderness or swelling. No cords were appreciated. Neurological: CN II-XII intact, there areno obvious motor or sensory deficits. Coordination appears grossly intact. Speech is normal.she is awake alert and oriented 3 today. Skin: Skin is warm and dry and no rashes or lesions are apparent Results CBC & Chem 7: 12/10/19 10:22 12/10/19 10:22 Labs: Abnormal Lab Results - Last 24 Hours (Table) 12/09/19 12/09/19 12/09/19 Range/Units 13:28 13:49 13:49 WBC 11.6 H (3.8-10.6) k/uL RBC 4.22 L (4.30-5.90) m/uL Hgb 11.8 L (13.0-17.5) gm/dL Hct 36.8 L (39.0-53.0) % Neutrophils # 9.2 H (1.3-7.7) k/uL Lymphocytes # (1.0-4.8) k/uL D-Dimer 1.32 H (<0.60) mg/L FEU Glucose (74-99) mg/dL POC Glucose (mg/dL) 108 H (75-99) mg/dL Total Protein (6.3-8.2) g/dL Urine Glucose (UA) (Negative) 12/09/19 12/09/19 12/09/19 Range/Units 13:49 14:59 17:41 WBC (3.8-10.6) k/uL RBC (4.30-5.90) m/uL Hgb (13.0-17.5) gm/dL Hct (39.0-53.0) % Neutrophils # (1.3-7.7) k/uL Lymphocytes # (1.0-4.8) k/uL D-Dimer (<0.60) mg/L FEU Glucose 118 H (74-99) mg/dL POC Glucose (mg/dL) 115 H (75-99) mg/dL Total Protein 6.1 L (6.3-8.2) g/dL Urine Glucose (UA) 4+ H (Negative) 12/09/19 12/10/19 12/10/19 Range/Units 22:10 06:04 10:22 WBC 13.1 H (3.8-10.6) k/uL RBC 4.22 L (4.30-5.90) m/uL Hgb 11.5 L (13.0-17.5) gm/dL Hct 37.1 L (39.0-53.0) % Neutrophils # 12.1 H (1.3-7.7) k/uL Lymphocytes # 0.7 L (1.0-4.8) k/uL D-Dimer (<0.60) mg/L FEU Glucose (74-99) mg/dL POC Glucose (mg/dL) 178 H 188 H (75-99) mg/dL Total Protein (6.3-8.2) g/dL Urine Glucose (UA) (Negative) 12/10/19 12/10/19 Range/Units 10:22 12:01 WBC (3.8-10.6) k/uL RBC (4.30-5.90) m/uL Hgb (13.0-17.5) gm/dL Hct (39.0-53.0) % Neutrophils # (1.3-7.7) k/uL Lymphocytes # (1.0-4.8) k/uL D-Dimer (<0.60) mg/L FEU Glucose 147 H (74-99) mg/dL POC Glucose (mg/dL) 139 H (75-99) mg/dL Total Protein (6.3-8.2) g/dL Urine Glucose (UA) (Negative) Chest x-ray: report reviewed CT scan - chest: report reviewed Thrombosis Risk Factor Assmnt - DVT/VTE Prophylaxis DVT/VTE Prophylaxis: Pharmacologic Prophylaxis ordered (he is on Carelto for his PVD) - Choose All That Apply Each Factor Represents 1 point: Abnormal pulmonary function (COPD), Obesity (BMI >25) Other Risk Factors: No Thrombosis Risk Factor Assessment Total Risk Factor Score: 2 Thrombosis Risk Factor Assessment Level: Low Risk Assessment and Plan (1) Type 2 diabetes mellitus without complications Current Visit: Yes Status: Acute Code(s): E11.9 - TYPE 2 DIABETES MELLITUS WITHOUT COMPLICATIONS SNOMED Code(s): 800214398 (2) FPC current use of anticoagulant Current Visit: Yes Status: Acute Code(s): Z79.01 - CARE HOME (CURRENT) USE OF ANTICOAGULANTS SNOMED Code(s): 465966593 (3) PAD (peripheral artery disease) Current Visit: Yes Status: Acute Code(s): I73.9 - PERIPHERAL VASCULAR DISEASE, UNSPECIFIED SNOMED Code(s): 731602509 (4) COPD exacerbation Current Visit: Yes Status: Acute Code(s): J44.1 - CHRONIC OBSTRUCTIVE PULMONARY DISEASE W (ACUTE) EXACERBATION SNOMED Code(s): 095205622 (5) Dyspnea Current Visit: Yes Status: Acute Code(s): R06.00 - DYSPNEA, UNSPECIFIED SNOMED Code(s): 058164034 Plan: consult cardiology about possible telemtery issue pulse ox has remained stabel, labs this am' ok to bring in Suboxone from home possible D/C this PM
--- NOTE | 2019-12-10 13:19 | P.DS ---
Providers Date of admission: 12/09/19 16:44 Attending physician: Cayden Hennessy Consults: 12/10/19 05:17 Consult Physician Routine Consulting Provider: Daniel Downs Consult Reason/Comments: Bradycardia Do you want consulting provider notified?: Yes, Notify in am Primary care physician: Cayden Hennessy - Discharge Diagnosis(es) (1) COPD exacerbation Current Visit: Yes Status: Acute (2) Type 2 diabetes mellitus without complications Current Visit: Yes Status: Acute (3) senior living current use of anticoagulant Current Visit: Yes Status: Acute (4) PAD (peripheral artery disease) Current Visit: Yes Status: Acute (5) Dyspnea Current Visit: Yes Status: Acute (6) Opioid use disorder Current Visit: Yes Status: Acute Hospital Course: this is an anxious 59-year-old white male patient of mine. He is in substance use disorder treatment in my office. He has a history of CAD goout, COPD, and PVD.He was brought to the ER by his after a home pulse ox reading in the 70s. Initial work up in the emergency room had no significant findings including chest x-ray & CTA. He was later put in OBV when h a pulse ox of 88% was found before ER D/C.. Currently he has no complaints of chest pains, pressures, shortness of breath, nausea or vomiting. Hes unsure why they kept him. Indicates the CTA test was very painful when they injected the .Currently this morning he is upset about being here and is having some withdrawals from missing his Suboxone opioid treatment medication, HE is requesting discharge home.He states he will leave AMA if not D/C soon. Overnight telemetry questioned a pause on his heart monitor without arrythmia. ADDENDUM: Cardiology has seen and cleared the patient. Mertoprolol has been stopped. He is insistant on going home now. No significant findings have turned up during his w/u. F/u in the office Friday! return to ER for worsening symptoms Patient Condition at Discharge: Fair Plan - Discharge Summary Discharge Rx Participant: No New Discharge Prescriptions: New predniSONE See Taper PO DAILY #30 tab Azithromycin [Zithromax] 500 mg PO DAILY #2 tab Continue Aspirin 81 mg PO DAILY chew Colchicine 0.6 mg PO DAILY #3 tablet Atorvastatin [Lipitor] 40 mg PO HS Albuterol Inhaler [Ventolin Hfa Inhaler] 2 puff INHALATION RT-QID PRN PRN Reason: Dyspnea levETIRAcetam [Keppra] 1,000 mg PO Q12HR hydrOXYzine HCL [Atarax] 50 mg PO TID PRN PRN Reason: Anxiety traZODone HCL 150 mg PO HS PRN PRN Reason: sleeping Buprenorphine HCl/Naloxone HCl [Suboxone 8 mg-2 mg Sl Film] 1 film SL BID cloNIDine HCL [Catapres] 0.1 mg PO HS Ipratropium-Albuterol Nebulize [Duoneb 0.5 mg-3 mg/3 ml Soln] 3 ml INHALATION QID PRN PRN Reason: COPD sx amLODIPine [Norvasc] 10 mg PO DAILY Rivaroxaban [Xarelto] 10 mg PO BID Pregabalin [Lyrica] 75 mg PO BID Ipratropium Nebulized [Atrovent Nebulized 0.2 MG/ML] 0.5 mg INHALATION RT-Q6H PRN PRN Reason: Shortness Of Breath Empaglifloz/Linaglip/Metformin [Trijardy Xr 10-5-1,000 mg Tab] 1 tab PO DAILY Discontinued Metoprolol Tartrate [Lopressor] 50 mg PO DAILY Empagliflozin/Metformin HCl [Synjardy 5-1,000 mg Tablet] 1 tab PO HS Discharge Medication List Aspirin 81 mg PO DAILY chew 12/29/18 [Rx] Colchicine 0.6 mg PO DAILY #3 tablet 03/19/19 [Rx] Albuterol Inhaler [Ventolin Hfa Inhaler] 2 puff INHALATION RT-QID PRN 08/09/19 [History] Atorvastatin [Lipitor] 40 mg PO HS 08/09/19 [History] hydrOXYzine HCL [Atarax] 50 mg PO TID PRN 08/09/19 [History] levETIRAcetam [Keppra] 1,000 mg PO Q12HR 08/09/19 [History] traZODone HCL 150 mg PO HS PRN 08/09/19 [History] Buprenorphine HCl/Naloxone HCl [Suboxone 8 mg-2 mg Sl Film] 1 film SL BID 10/26/19 [History] Ipratropium-Albuterol Nebulize [Duoneb 0.5 mg-3 mg/3 ml Soln] 3 ml INHALATION QID PRN 10/26/19 [History] cloNIDine HCL [Catapres] 0.1 mg PO HS 10/26/19 [History] amLODIPine [Norvasc] 10 mg PO DAILY 12/01/19 [History] Empaglifloz/Linaglip/Metformin [Trijardy Xr 10-5-1,000 mg Tab] 1 tab PO DAILY 12/09/19 [History] Ipratropium Nebulized [Atrovent Nebulized 0.2 MG/ML] 0.5 mg INHALATION RT-Q6H PRN 12/09/19 [History] Pregabalin [Lyrica] 75 mg PO BID 12/09/19 [History] Rivaroxaban [Xarelto] 10 mg PO BID 12/09/19 [History] Azithromycin [Zithromax] 500 mg PO DAILY #2 tab 12/10/19 [Rx] predniSONE See Taper PO DAILY #30 tab 12/10/19 [Rx] Follow up Appointment(s)/Referral(s): Caitie Box MD [STAFF PHYSICIAN] - 2 Weeks Cayden Hennessy MD [Primary Care Provider] - 1-2 days Patient Instructions/Handouts: Shortness of Breath (ED) Activity/Diet/Wound Care/Special Instructions: Patient is a follow-up with your primary care physician appointment tomorrow. The Patient should be monitored there is any development of chest pain or shortness of breath please return to the ER for reevaluation. Using breathing treatments at home.
== END 2019-12-10 13:30 | disposition home or self-care (01) ==
LOC: EC 12:54 → 1SOBS 16:44
PROVIDERS: ADMIT Family Medicine; ATTEND Family Medicine
DX: J44.1 Chronic obstructive pulmonary disease with (acute) exacerbation (principal); E11.51 Type 2 diabetes mellitus with diabetic peripheral angiopathy without gangrene; F11.93 Opioid use, unspecified with withdrawal; R09.02 Hypoxemia; R79.89 Other specified abnormal findings of blood chemistry; I95.9 Hypotension, unspecified; I44.0 Atrioventricular block, first degree; R00.1 Bradycardia, unspecified; I25.10 Atherosclerotic heart disease of native coronary artery without angina pectoris; I10 Essential (primary) hypertension; G40.909 Epilepsy, unspecified, not intractable, without status epilepticus; E78.5 Hyperlipidemia, unspecified; K21.9 Gastro-esophageal reflux disease without esophagitis; M10.9 Gout, unspecified; N28.9 Disorder of kidney and ureter, unspecified; F32.9 Major depressive disorder, single episode, unspecified; F41.9 Anxiety disorder, unspecified; Z95.820 Peripheral vascular angioplasty status with implants and grafts; M54.9 Dorsalgia, unspecified; F40.240 Claustrophobia; E66.9 Obesity, unspecified; Z68.26 Body mass index [BMI] 26.0-26.9, adult; Z79.01 Long term (current) use of anticoagulants; Z79.82 Long term (current) use of aspirin; Z79.899 Other long term (current) drug therapy; Z87.81 Personal history of (healed) traumatic fracture; Z87.891 Personal history of nicotine dependence; Z82.5 Family history of asthma and other chronic lower respiratory diseases
CPT/HCPCS: 93005 ×2; 96376 ×2; 96361; 96374; 99285; 36415; 94640 ×4; 85379; 83880; 80053; 80048; 84443; 83605; 83735 ×2; 84484; 85025 ×2; 85610; 85730; 81003; 87040; 71046; 71275; G0378 ×2; J2930 ×2; Q9967

== ENCOUNTER 2019-12-21 10:47 | Emergency (ER) | payer OTHER ==
[2019-12-21] MEDS ORDERED: ACETAMINOPHEN TAB 500 MG TAB PO STA (11:14)
[2019-12-21] MEDS ORDERED: SODIUM CHLORIDE 0.9% 1,000 ML IV SCH (11:15)
--- NOTE | 2019-12-21 11:17 | ED ---
General Adult HPI - General Chief complaint: Neuro Symptoms/Deficit Stated complaint: right arm issues. Time Seen by Provider: 12/21/19 11:08 Source: patient, family Mode of arrival: wheelchair Limitations: physical limitation - History of Present Illness Initial comments: Dictation was produced using [employer] dictation software. please excuse any gr ammatical, word or spelling errors. This patient was cared for during a federal and state declared state of emergency secondary to Covid 19 Chief Complaint: 59-year-old male presents with weakness History of Present Illness: Patient is a 59-year-old male he has past medical history asthma, COPD, dyslipidemia hypertension and diabetes. He had some weakness to his left arm today. He has been shaky. Patient reports that he feels fine he does not know why he needs to be here. Patient was having coffee this morning when he all of a sudden dropped his cup. As that he has any sort of weakness. States that it had affected his left arm. Denies any cough. No shortness of breath. No diarrhea. Denies any fevers. The ROS documented in this emergency department record has been reviewed and confirmed by me. Those systems with pertinent positive or negative responses have been documented in the HPI. All other systems are other negative and/or noncontributory. PHYSICAL EXAM: General Impression: Alert and oriented x3, not in acute distress, tremulous HEENT: Normocephalic atraumatic, extra-ocular movements intact, pupils equal and reactive to light bilaterally, mucous membranes moist. Cardiovascular: Heart regular rate and rhythm Chest: Able to complete full sentences, no retractions, no tachypnea Abdomen: abdomen soft, non-tender, non-distended, no organomegaly Musculoskeletal: Pulses present and equal in all extremities, no peripheral edema Motor: no focal deficits noted Neurological: CN II-XII grossly intact, no focal motor or sensory deficits noted Skin: Intact with no visualized rashes Psych: Normal affect and mood ED course: 59-year-old male presents with no complaints. at bedside reports that he did have an episode of left upper extremity weakness. Patient has no focal neurologic deficits on my physical examination. There is more concerned that patient is globally weak. Vital signs upon arrival shows temperature 103, heart rate of 136, 92% on room air. Patient has no focal neurologic deficits. He is tremulous Laboratory evaluation obtained leukocytosis of 29.7 which for count 25.5. Coag panel unremarkable. Venous blood gas shows pH of 7.45 with pCO2 of 35. No bicarb abnormality. Metabolic panel shows BUN of 21. Mild hyponatremia 134. Glucose 142, lactic acid is 2.2. Urinalysis shows 4+ glucose. No findings to suggest urinary tract infection. X-ray is nonacute. No findings of infiltrate. This point patient has lab to suggest inflammatory process however there is no obvious infectious source. Patient is not having localizing symptoms. He is well-appearing at bedside. Patient given dose of Unasyn, and Tylenol. Repeat vitals are improved. They're pending urine cultures and blood cultures. Discussed patient that I recommend he be admitted for medical monitoring and infectious disease consult. Patient states he does not want to be admitted he wants to be discharge. Discussed with patient that his symptoms could rapidly progress causing worsening systemic inflammatory syndrome/sepsis which ultimately could lead to significant morbidity and even . Patient is understandable. He states he will return to emergency department if he gets worse. Case was discussed with patient's primary care physician Dr. Hennessy who is aware of patient. Patient is told to follow-up at his PCPs office within the next 48 hours. Patient given prescription for Augmentin. EKG interpretation: Ventricular rate 126, sinus tachycardia,. 140, QRS 74, QTC 42. No TN prolongation, no QTC prolongation. T-wave inversions in the lateral precordial leads. These appear to be new compared to 12/09/2019. Overall these findings are nonspecific but can represent ischemic changes. - Related Data Home Medications Medication Instructions Recorded Confirmed Albuterol Inhaler [Ventolin Hfa 2 puff INHALATION RT-QID PRN 08/09/19 12/21/19 Inhaler] Atorvastatin [Lipitor] 40 mg PO HS 08/09/19 12/21/19 hydrOXYzine HCL [Atarax] 50 mg PO Q8H PRN 08/09/19 12/21/19 levETIRAcetam [Keppra] 1,000 mg PO Q12HR 08/09/19 12/21/19 traZODone HCL 150 mg PO HS PRN 08/09/19 12/21/19 Buprenorphine HCl/Naloxone HCl 1 film SL BID 10/26/19 12/21/19 [Suboxone 8 mg-2 mg Sl Film] Ipratropium-Albuterol Nebulize 3 ml INHALATION QID PRN 10/26/19 12/21/19 [Duoneb 0.5 mg-3 mg/3 ml Soln] cloNIDine HCL [Catapres] 0.1 mg PO HS 10/26/19 12/21/19 amLODIPine [Norvasc] 10 mg PO DAILY 12/01/19 12/21/19 Empaglifloz/Linaglip/Metformin 1 tab PO DIRECTED 12/09/19 12/21/19 [Trijardy Xr 10-5-1,000 mg Tab] Ipratropium Nebulized [Atrovent 0.5 mg INHALATION RT-Q6H PRN 12/09/19 12/21/19 Nebulized 0.2 MG/ML] Pregabalin [Lyrica] 75 mg PO BID 12/09/19 12/21/19 Alogliptin Benzoate [Alogliptin] 25 mg PO DAILY 12/21/19 12/21/19 Buprenorphine HCl/Naloxone HCl 1 film SL HS 12/21/19 12/21/19 [Suboxone 2 mg-0.5 mg Sl Film] Clopidogrel [Plavix] 75 mg PO DAILY 12/21/19 12/21/19 Ertugliflozin Pidolate [Steglatro] 15 mg PO BID 12/21/19 12/21/19 Escitalopram [Lexapro] 10 mg PO DAILY 12/21/19 12/21/19 Famotidine [Pepcid] 20 mg PO BID 12/21/19 12/21/19 Omeprazole 40 mg PO DAILY 12/21/19 12/21/19 metFORMIN HCL [metFORMIN HCL ER] 750 mg PO BID 12/21/19 12/21/19 Previous Rx's Medication Instructions Recorded Aspirin 81 mg PO DAILY chew 12/29/18 Colchicine 0.6 mg PO DAILY #3 tablet 03/19/19 Amoxic-Pot Clav 875-125Mg 1 tab PO BID 7 Days #14 tab 12/21/19 [Augmentin 875-125] Allergies Allergy/AdvReac Type Severity Reaction Status Date / Time No Known Allergies Allergy Verified 12/21/19 12:26 Review of Systems ROS Statement: Those systems with pertinent positive or pertinent negative responses have been documented in the HPI. ROS Other: All systems not noted in ROS Statement are negative. Past Medical History Past Medical History: Asthma, Coronary Artery Disease (CAD), COPD, GERD/Reflux, Hyperlipidemia, Hypertension, Musculoskeletal Disorder, Seizure Disorder, Vascular Disorder Additional Past Medical History / Comment(s): Hx bilat gout in feet; hx fx ribs, c/o ongoing back pain. 07/2019 had seizure. Hx renal impairment R/T Motrin use. recent stents for PAD both legs 11/28/19 History of Any Multi-Drug Resistant Organisms: None Reported Past Surgical History: Orthopedic Surgery, Tonsillectomy Additional Past Surgical History / Comment(s): left hand 5th finger tendon surgery. 08/11/19 Abd Aortogram, stents placed october 28 Past Anesthesia/Blood Transfusion Reactions: No Reported Reaction Past Psychological History: Anxiety, Depression Smoking Status: Former smoker Past Alcohol Use History: Abuse Past Drug Use History: Marijuana - Past Family History Father Family Medical History: No Reported History Additional Family Medical History / Comment(s): Father is alive and in his 70's Mother Family Medical History: Pneumonia Additional Family Medical History / Comment(s): Mother of pneumonia at the age of 52yrs. General Exam Limitations: physical limitation Course Vital Signs 12/21/19 12/21/19 12/21/19 10:56 11:40 12:00 Temperature 103 F H Pulse Rate 136 H 126 H 116 H Respiratory 18 21 13 Rate Blood Pressure 150/102 127/95 127/95 O2 Sat by Pulse 92 L 92 L 90 L Oximetry 12/21/19 13:00 Temperature 98.5 F Pulse Rate 106 H Respiratory 11 L Rate Blood Pressure 150/82 O2 Sat by Pulse 91 L Oximetry Medical Decision Making - Lab Data Result diagrams: 12/21/19 11:23 12/21/19 11:23 Lab Results 12/21/19 12/21/19 12/21/19 Range/Units 11:23 11:23 11:23 WBC 29.7 H (3.8-10.6) k/uL RBC 4.79 (4.30-5.90) m/uL Hgb 13.2 (13.0-17.5) gm/dL Hct 41.6 (39.0-53.0) % MCV 86.9 (80.0-100.0) fL MCH 27.4 (25.0-35.0) pg MCHC 31.6 (31.0-37.0) g/dL RDW 14.3 (11.5-15.5) % Plt Count 364 (150-450) k/uL Neutrophils % 86 % Lymphocytes % 8 % Monocytes % 4 % Eosinophils % 0 % Basophils % 1 % Neutrophils # 25.5 H (1.3-7.7) k/uL Lymphocytes # 2.5 (1.0-4.8) k/uL Monocytes # 1.1 H (0-1.0) k/uL Eosinophils # 0.1 (0-0.7) k/uL Basophils # 0.1 (0-0.2) k/uL Manual Slide Review Performed PT 9.8 (9.0-12.0) sec INR 0.9 (<1.2) APTT 22.2 (22.0-30.0) sec VBG pH (7.31-7.41) VBG pCO2 (37-51) mmHg VBG HCO3 (24-28) mmol/L Sodium (137-145) mmol/L Potassium (3.5-5.1) mmol/L Chloride (98-107) mmol/L Carbon Dioxide (22-30) mmol/L Anion Gap mmol/L BUN (9-20) mg/dL Creatinine (0.66-1.25) mg/dL Est GFR (CKD-EPI)AfAm (>60 ml/min/1.73 sqM) Est GFR (CKD-EPI)NonAf (>60 ml/min/1.73 sqM) Glucose (74-99) mg/dL Plasma Lactic Acid Mehul (0.7-2.0) mmol/L Calcium (8.4-10.2) mg/dL Magnesium (1.6-2.3) mg/dL Total Bilirubin (0.2-1.3) mg/dL AST (17-59) U/L ALT (4-49) U/L Alkaline Phosphatase (38-126) U/L Creatine Kinase (55-170) U/L Total Protein (6.3-8.2) g/dL Albumin (3.5-5.0) g/dL Urine Color Yellow Urine Appearance Clear (Clear) Urine pH 5.0 (5.0-8.0) Ur Specific Harbinger 1.005 (1.001-1.035) Urine Protein Negative (Negative) Urine Glucose (UA) 4+ H (Negative) Urine Ketones Negative (Negative) Urine Blood Negative (Negative) Urine Nitrite Negative (Negative) Urine Bilirubin Negative (Negative) Urine Urobilinogen <2.0 (<2.0) mg/dL Ur Leukocyte Esterase Negative (Negative) Urine RBC 1 (0-5) /hpf Urine WBC 1 (0-5) /hpf 12/21/19 12/21/19 12/21/19 Range/Units 11:23 11:23 11:23 WBC (3.8-10.6) k/uL RBC (4.30-5.90) m/uL Hgb (13.0-17.5) gm/dL Hct (39.0-53.0) % MCV (80.0-100.0) fL MCH (25.0-35.0) pg MCHC (31.0-37.0) g/dL RDW (11.5-15.5) % Plt Count (150-450) k/uL Neutrophils % % Lymphocytes % % Monocytes % % Eosinophils % % Basophils % % Neutrophils # (1.3-7.7) k/uL Lymphocytes # (1.0-4.8) k/uL Monocytes # (0-1.0) k/uL Eosinophils # (0-0.7) k/uL Basophils # (0-0.2) k/uL Manual Slide Review PT (9.0-12.0) sec INR (<1.2) APTT (22.0-30.0) sec VBG pH 7.49 H (7.31-7.41) VBG pCO2 35 L (37-51) mmHg VBG HCO3 26 (24-28) mmol/L Sodium 134 L (137-145) mmol/L Potassium 4.5 (3.5-5.1) mmol/L Chloride 95 L (98-107) mmol/L Carbon Dioxide 28 (22-30) mmol/L Anion Gap 11 mmol/L BUN 21 H (9-20) mg/dL Creatinine 0.84 (0.66-1.25) mg/dL Est GFR (CKD-EPI)AfAm >90 (>60 ml/min/1.73 sqM) Est GFR (CKD-EPI)NonAf >90 (>60 ml/min/1.73 sqM) Glucose 142 H (74-99) mg/dL Plasma Lactic Acid Mehul 2.2 H* (0.7-2.0) mmol/L Calcium 9.1 (8.4-10.2) mg/dL Magnesium 1.7 (1.6-2.3) mg/dL Total Bilirubin 0.7 (0.2-1.3) mg/dL AST 28 (17-59) U/L ALT 25 (4-49) U/L Alkaline Phosphatase 77 (38-126) U/L Creatine Kinase 29 L (55-170) U/L Total Protein 6.7 (6.3-8.2) g/dL Albumin 4.4 (3.5-5.0) g/dL Urine Color Urine Appearance (Clear) Urine pH (5.0-8.0) Ur Specific Harbinger (1.001-1.035) Urine Protein (Negative) Urine Glucose (UA) (Negative) Urine Ketones (Negative) Urine Blood (Negative) Urine Nitrite (Negative) Urine Bilirubin (Negative) Urine Urobilinogen (<2.0) mg/dL Ur Leukocyte Esterase (Negative) Urine RBC (0-5) /hpf Urine WBC (0-5) /hpf Disposition Clinical Impression: SIRS (systemic inflammatory response syndrome) Disposition: HOME SELF-CARE Condition: Fair Instructions (If sedation given, give patient instructions): Fever in Adults (ED) Additional Instructions: Please follow up with her primary care physician within the next 48 hours. You have laboratory evaluation concerning for serious bacterial illness however there is no obvious source. You must return to the emergency Department with any worsening symptoms. Please take Tylenol for fevers as needed. Prescriptions for antibiotics were sent to your pharmacy for pickup. Prescriptions: Amoxic-Pot Clav 875-125Mg [Augmentin 875-125] 1 tab PO BID 7 Days #14 tab Is patient prescribed a controlled substance at d/c from ED?: No Referrals: Cayden Hennessy MD [Primary Care Provider] - 1-2 days Time of Disposition: 13:45
[2019-12-21 11:39] LABS: Basophils # (A) 0.1 k/uL (0-0.2); Basophils % (A) 1 %; Eosinophils # (A) 0.1 k/uL (0-0.7); Eosinophils % (A) 0 %; HCT 41.6 % (39.0-53.0); HGB 13.2 gm/dL (13.0-17.5); Lymphocytes # (A) 2.5 k/uL (1.0-4.8); Lymphocytes % (A) 8 %; MCH 27.4 pg (25.0-35.0); MCHC 31.6 g/dL (31.0-37.0); MCV 86.9 fL (80.0-100.0); Mean Platelet Volume 7.8; Monocytes # (A) 1.1 k/uL (0-1.0); Monocytes % (A) 4 %; Neutrophils # (A) 25.5 k/uL (1.3-7.7); Neutrophils % (A) 86 %; Platelet Count 364 k/uL (150-450); RBC 4.79 m/uL (4.30-5.90); RDW 14.3 % (11.5-15.5); WBC 29.7 k/uL (3.8-10.6)
[2019-12-21 11:51] LABS: ALT 25 U/L (4-49); AST 28 U/L (17-59); African American GFR (CKD) >90 (>60 ml/min/1.73 sqM); Albumin 4.4 g/dL (3.5-5.0); Alkaline Phosphatase 77 U/L (38-126); Anion Gap 11 mmol/L; Blood Urea Nitrogen 21 mg/dL (9-20); Calcium 9.1 mg/dL (8.4-10.2); Carbon Dioxide 28 mmol/L (22-30); Chloride 95 mmol/L (98-107); Creatine Kinase 29 U/L (55-170); Glucose 142 mg/dL (74-99); Magnesium 1.7 mg/dL (1.6-2.3); Non-African American GFR(CKD) >90 (>60 ml/min/1.73 sqM); Potassium 4.5 mmol/L (3.5-5.1); Sodium 134 mmol/L (137-145); Total Bilirubin 0.7 mg/dL (0.2-1.3); Total Protein 6.7 g/dL (6.3-8.2)
[2019-12-21 11:56] LABS: VBG PH 7.49 (7.31-7.41)
[2019-12-21 12:07] LABS: INR 0.9 (<1.2); Partial Thromboplastin Time 22.2 sec (22.0-30.0); Prothrombin Time 9.8 sec (9.0-12.0)
[2019-12-21] MEDS ORDERED: AMPICILLIN-SULBACTAM 3 GM in SODIUM CHLORIDE 0.9% 100 ML IVPB STA (12:27)
[2019-12-21 12:34] LABS: RBC,Urine 1 /hpf (0-5); WBC,Urine 1 /hpf (0-5)
--- NOTE | 2019-12-21 12:36 | XR ---
EXAMINATION TYPE: XR chest 1V portable DATE OF EXAM: 12/21/2019 COMPARISON: Chest x-ray 12 days ago. HISTORY: Fever. TECHNIQUE: 2 AP portable frontal upright views of the chest is obtained. FINDINGS: There is background chronic parenchymal change without suspicious new focal air space opac ity, pleural effusion, or pneumothorax seen. The cardiac silhouette size is stable and upper limits of normal. The osseous structures are demineralized. IMPRESSION: Chronic changes without suspicious new acute pulmonary process. No significant change fro m prior.
[2019-12-21] MEDS ORDERED: VANCOMYCIN IV PER PHARMACY 1 EACH MISC MISCELLANE PRN (12:41)
[2019-12-21] MEDS ORDERED: VANCOMYCIN 1,500 MG in SODIUM CHLORIDE 0.9% 250 ML IVPB STA (12:46)
[2019-12-21 12:54] LABS: Appearance,Urine Clear (Clear); Color,Urine Yellow
[2019-12-21 12:55] LABS: Bilirubin,Urine Negative (Negative); Blood,Urine Negative (Negative); Glucose,Urine (UA) 4+ (Negative); Ketones,Urine Negative (Negative); Leukocyte Esterase,Urine Negative (Negative); Nitrite,Urine Negative (Negative); Protein,Urine Negative (Negative); Specific Gravity,Urine 1.005 (1.001-1.035); Urobilinogen,Urine <2.0 mg/dL (<2.0)
[2019-12-21 13:13] VITALS: BP 150/82; RESP 11; TEMP 98.5
[2019-12-21 14:05] VITALS: PULSE 122
[2019-12-22 14:06] LABS: Glucose,Whole Blood 136 mg/dL (75-99)
== END 2019-12-21 13:59 | disposition home or self-care (01) ==
LOC: EC 10:47
DX: R65.10 Systemic inflammatory response syndrome (SIRS) of non-infectious origin without acute organ dysfunction (principal); E87.1 Hypo-osmolality and hyponatremia; F41.9 Anxiety disorder, unspecified; F32.9 Major depressive disorder, single episode, unspecified; J44.9 Chronic obstructive pulmonary disease, unspecified; K21.9 Gastro-esophageal reflux disease without esophagitis; I25.10 Atherosclerotic heart disease of native coronary artery without angina pectoris; E78.5 Hyperlipidemia, unspecified; G40.909 Epilepsy, unspecified, not intractable, without status epilepticus; Z79.899 Other long term (current) drug therapy; Z87.891 Personal history of nicotine dependence; Z20.828 Contact with and (suspected) exposure to other viral communicable diseases
CPT/HCPCS: 36415; 93005; 80053; 82550; 82803; 83605; 83735; 85025; 85610; 85730; 81003; 87040; 71045; 99284; 96365; 96361; U0003; J0295

== ENCOUNTER 2020-12-17 18:53 | Inpatient (IN) | payer OTHER ==
[2020-12-17] MEDS ORDERED: methylPREDNISolone SOD SUCCI 125 MG/2 ML VIAL IV STA (19:09)
[2020-12-17] MEDS ORDERED: ALBUTEROL NEBULIZED 2.5 MG/3 ML INHALATION STA (19:10)
[2020-12-17] MEDS ORDERED: IPRATROPIUM-ALBUTEROL 3 ML NEB INHALATION STA (19:10)
[2020-12-17 19:12] LABS: Glucose,Whole Blood 114 mg/dL (75-99)
--- NOTE | 2020-12-17 19:20 | ED ---
General Adult HPI - General Chief complaint: Shortness of Breath Stated complaint: bilat leg swelling, weakness Time Seen by Provider: 12/17/20 19:05 Source: patient, RN notes reviewed, old records reviewed Mode of arrival: wheelchair Limitations: no limitations - History of Present Illness Initial comments: 60-year-old male presenting with cough, bilateral lower extremity edema, and dyspnea. History of COPD, current smoker. Patient has been vaccinated against coronavirus. No known exposure. He's had increased cough for about the day today. He denies pain complaints. In triage she is found to be hypoxic in the 70s. He does have a history of COPD. No reported fever. No central chest pain. He has bilateral lower extremity edema which is worse on the right. No history of DVT or PE. - Related Data Home Medications Medication Instructions Recorded Confirmed Atorvastatin [Lipitor] 40 mg PO HS 08/09/19 12/23/19 hydrOXYzine HCL [Atarax] 50 mg PO Q8H PRN 08/09/19 12/23/19 levETIRAcetam [Keppra] 1,000 mg PO Q12HR 08/09/19 12/23/19 traZODone HCL 150 mg PO HS PRN 08/09/19 12/23/19 Buprenorphine HCl/Naloxone HCl 1 film SL BID 10/26/19 12/23/19 [Suboxone 8 mg-2 mg Sl Film] Ipratropium-Albuterol Nebulize 3 ml INHALATION QID PRN 10/26/19 12/23/19 [Duoneb 0.5 mg-3 mg/3 ml Soln] cloNIDine HCL [Catapres] 0.1 mg PO HS 10/26/19 12/23/19 amLODIPine [Norvasc] 10 mg PO DAILY 12/01/19 12/23/19 Ipratropium Nebulized [Atrovent 0.5 mg INHALATION RT-Q6H PRN 12/09/19 12/23/19 Nebulized 0.2 MG/ML] Pregabalin [Lyrica] 75 mg PO BID 12/09/19 12/23/19 Alogliptin Benzoate [Alogliptin] 25 mg PO DAILY 12/21/19 12/23/19 Buprenorphine HCl/Naloxone HCl 1 film SL HS 12/21/19 12/23/19 [Suboxone 2 mg-0.5 mg Sl Film] Clopidogrel [Plavix] 75 mg PO DAILY 12/21/19 12/23/19 Ertugliflozin Pidolate [Steglatro] 15 mg PO BID 12/21/19 12/23/19 Escitalopram [Lexapro] 10 mg PO DAILY 12/21/19 12/23/19 Famotidine [Pepcid] 20 mg PO BID 12/21/19 12/23/19 Omeprazole 40 mg PO DAILY 12/21/19 12/23/19 metFORMIN HCL [metFORMIN HCL ER] 750 mg PO BID 12/21/19 12/23/19 Previous Rx's Medication Instructions Recorded Aspirin 81 mg PO DAILY chew 12/29/18 Colchicine 0.6 mg PO DAILY #3 tablet 03/19/19 Allergies Allergy/AdvReac Type Severity Reaction Status Date / Time No Known Allergies Allergy Verified 12/17/20 18:59 Review of Systems ROS Statement: Those systems with pertinent positive or pertinent negative responses have been documented in the HPI. ROS Other: All systems not noted in ROS Statement are negative. Past Medical History Past Medical History: Asthma, Coronary Artery Disease (CAD), COPD, Diabetes Mellitus, GERD/Reflux, Hyperlipidemia, Hypertension, Musculoskeletal Disorder, Seizure Disorder, Vascular Disorder Additional Past Medical History / Comment(s): Hx bilat gout in feet; hx fx ribs, c/o ongoing back pain. 07/2019 had seizure. Hx renal impairment R/T Motrin use. recent stents for PAD both legs 11/28/19 History of Any Multi-Drug Resistant Organisms: None Reported Past Surgical History: Orthopedic Surgery, Tonsillectomy Additional Past Surgical History / Comment(s): left hand 5th finger tendon surgery. 08/11/19 Abd Aortogram, stents placed october 28 Past Anesthesia/Blood Transfusion Reactions: No Reported Reaction Past Psychological History: Anxiety, Depression Smoking Status: Current every day smoker Past Alcohol Use History: Abuse Past Drug Use History: Marijuana - Past Family History Father Family Medical History: No Reported History Additional Family Medical History / Comment(s): Father is alive and in his 70's Mother Family Medical History: Pneumonia Additional Family Medical History / Comment(s): Mother of pneumonia at the age of 52yrs. General Exam Limitations: no limitations General appearance: alert, other (Guillaume, cyanotic, no respiratory distress) Head exam: Present: atraumatic, normocephalic Eye exam: Present: normal appearance, PERRL ENT exam: Present: normal exam Neck exam: Present: normal inspection. Absent: tenderness, meningismus Respiratory exam: Present: respiratory distress, wheezes, rhonchi Cardiovascular Exam: Present: regular rate, normal rhythm GI/Abdominal exam: Present: soft. Absent: distended, tenderness Extremities exam: Present: pedal edema (Worse on the right) Neurological exam: Present: alert, oriented X3, CN II-XII intact. Absent: motor sensory deficit Psychiatric exam: Present: normal affect Skin exam: Present: warm, cyanosis Course Vital Signs 12/17/20 12/17/20 12/17/20 18:55 19:05 19:15 Temperature 98.7 F Pulse Rate 75 63 66 Respiratory 24 22 22 Rate Blood Pressure 105/65 119/73 119/67 O2 Sat by Pulse 75 L 60 L 98 Oximetry 12/17/20 12/17/20 12/17/20 19:26 19:30 19:33 Temperature Pulse Rate 58 L 63 64 Respiratory 20 Rate Blood Pressure 119/73 O2 Sat by Pulse 96 Oximetry 12/17/20 12/17/20 12/17/20 19:39 19:45 20:00 Temperature Pulse Rate 64 62 Respiratory 22 22 22 Rate Blood Pressure 109/62 103/60 O2 Sat by Pulse 99 94 L Oximetry EKG Findings - EKG Comments: EKG Findings:: EKG: Normal sinus rhythm, rate of 68, MI interval 178, QRS duration 82, QTC 423, no ST segment elevation artifact in lead V1 and V2. Medical Decision Making - Medical Decision Making 60-year-old male presenting with dyspnea, cough, lower leg swelling. Patient did have a unilateral leg swelling worse on the right. Ultrasound performed, negative for DVT. Workup initiated, he has a mild leukocytosis 12.9, hemoglobin is 18.6, he has a d-dimer of 0.64, this is down trending from one week ago where he did have a more significantly elevated d-dimer and CT angiography at that time was negative. Chest x-ray today is negative for focal pneumonia. He is hyper Neck and hypoxic. His CO2 on venous gas is 71. Troponin and BNP are negative, coronavirus testing is negative. Case discussed with Dr. Maciel who will admit this patient with pulmonology on consult. Diagnoses hypoxic hypercapnic respiratory failure secondary to COPD Bautista on BiPAP. - Lab Data Result diagrams: 12/17/20 19:11 12/17/20 19:11 Lab Results 12/17/20 12/17/20 12/17/20 Range/Units 19:10 19:11 19:11 WBC 12.9 H (3.8-10.6) k/uL RBC 6.17 H (4.30-5.90) m/uL Hgb 18.6 H (13.0-17.5) gm/dL Hct 55.6 H (39.0-53.0) % MCV 90.1 (80.0-100.0) fL MCH 30.1 (25.0-35.0) pg MCHC 33.5 (31.0-37.0) g/dL RDW 17.6 H (11.5-15.5) % Plt Count 211 (150-450) k/uL MPV 8.1 Neutrophils % 79 % Lymphocytes % 12 % Monocytes % 6 % Eosinophils % 1 % Basophils % 1 % Neutrophils # 10.2 H (1.3-7.7) k/uL Lymphocytes # 1.6 (1.0-4.8) k/uL Monocytes # 0.7 (0-1.0) k/uL Eosinophils # 0.1 (0-0.7) k/uL Basophils # 0.1 (0-0.2) k/uL Hypochromasia Moderate Anisocytosis Slight PT 11.8 (9.0-12.0) sec INR 1.1 (<1.2) APTT 25.8 (22.0-30.0) sec D-Dimer 0.64 H (<0.60) mg/L FEU VBG pH (7.31-7.41) VBG pCO2 (37-51) mmHg VBG HCO3 (24-28) mmol/L Sodium (137-145) mmol/L Potassium (3.5-5.1) mmol/L Chloride (98-107) mmol/L Carbon Dioxide (22-30) mmol/L Anion Gap mmol/L BUN (9-20) mg/dL Creatinine (0.66-1.25) mg/dL Est GFR (CKD-EPI)AfAm (>60 ml/min/1.73 sqM) Est GFR (CKD-EPI)NonAf (>60 ml/min/1.73 sqM) Glucose (74-99) mg/dL POC Glucose (mg/dL) 114 H (75-99) mg/dL POC Glu Physicians Assistant Keke Cosme Plasma Lactic Acid Mehul (0.7-2.0) mmol/L Calcium (8.4-10.2) mg/dL Magnesium (1.6-2.3) mg/dL Total Bilirubin (0.2-1.3) mg/dL AST (17-59) U/L ALT (4-49) U/L Alkaline Phosphatase (38-126) U/L Troponin I (0.000-0.034) ng/mL NT-Pro-B Natriuret Pep pg/mL Total Protein (6.3-8.2) g/dL Albumin (3.5-5.0) g/dL Coronavirus (PCR) (Not Detectd) 12/17/20 12/17/20 12/17/20 Range/Units 19:11 19:11 19:11 WBC (3.8-10.6) k/uL RBC (4.30-5.90) m/uL Hgb (13.0-17.5) gm/dL Hct (39.0-53.0) % MCV (80.0-100.0) fL MCH (25.0-35.0) pg MCHC (31.0-37.0) g/dL RDW (11.5-15.5) % Plt Count (150-450) k/uL MPV Neutrophils % % Lymphocytes % % Monocytes % % Eosinophils % % Basophils % % Neutrophils # (1.3-7.7) k/uL Lymphocytes # (1.0-4.8) k/uL Monocytes # (0-1.0) k/uL Eosinophils # (0-0.7) k/uL Basophils # (0-0.2) k/uL Hypochromasia Anisocytosis PT (9.0-12.0) sec INR (<1.2) APTT (22.0-30.0) sec D-Dimer (<0.60) mg/L FEU VBG pH (7.31-7.41) VBG pCO2 (37-51) mmHg VBG HCO3 (24-28) mmol/L Sodium 138 (137-145) mmol/L Potassium 5.1 (3.5-5.1) mmol/L Chloride 101 (98-107) mmol/L Carbon Dioxide 28 (22-30) mmol/L Anion Gap 9 mmol/L BUN 11 (9-20) mg/dL Creatinine 0.83 (0.66-1.25) mg/dL Est GFR (CKD-EPI)AfAm >90 (>60 ml/min/1.73 sqM) Est GFR (CKD-EPI)NonAf >90 (>60 ml/min/1.73 sqM) Glucose 128 H (74-99) mg/dL POC Glucose (mg/dL) (75-99) mg/dL POC Glu Physicians Assistant ID Plasma Lactic Acid Mehul 1.1 (0.7-2.0) mmol/L Calcium 8.6 (8.4-10.2) mg/dL Magnesium 1.7 (1.6-2.3) mg/dL Total Bilirubin 0.6 (0.2-1.3) mg/dL AST 24 (17-59) U/L ALT 6 (4-49) U/L Alkaline Phosphatase 77 (38-126) U/L Troponin I <0.012 (0.000-0.034) ng/mL NT-Pro-B Natriuret Pep pg/mL Total Protein 6.0 L (6.3-8.2) g/dL Albumin 3.7 (3.5-5.0) g/dL Coronavirus (PCR) (Not Detectd) 12/17/20 12/17/20 12/17/20 Range/Units 19:11 19:11 19:11 WBC (3.8-10.6) k/uL RBC (4.30-5.90) m/uL Hgb (13.0-17.5) gm/dL Hct (39.0-53.0) % MCV (80.0-100.0) fL MCH (25.0-35.0) pg MCHC (31.0-37.0) g/dL RDW (11.5-15.5) % Plt Count (150-450) k/uL MPV Neutrophils % % Lymphocytes % % Monocytes % % Eosinophils % % Basophils % % Neutrophils # (1.3-7.7) k/uL Lymphocytes # (1.0-4.8) k/uL Monocytes # (0-1.0) k/uL Eosinophils # (0-0.7) k/uL Basophils # (0-0.2) k/uL Hypochromasia Anisocytosis PT (9.0-12.0) sec INR (<1.2) APTT (22.0-30.0) sec D-Dimer (<0.60) mg/L FEU VBG pH 7.26 L (7.31-7.41) VBG pCO2 71 H* (37-51) mmHg VBG HCO3 31 H (24-28) mmol/L Sodium (137-145) mmol/L Potassium (3.5-5.1) mmol/L Chloride (98-107) mmol/L Carbon Dioxide (22-30) mmol/L Anion Gap mmol/L BUN (9-20) mg/dL Creatinine (0.66-1.25) mg/dL Est GFR (CKD-EPI)AfAm (>60 ml/min/1.73 sqM) Est GFR (CKD-EPI)NonAf (>60 ml/min/1.73 sqM) Glucose (74-99) mg/dL POC Glucose (mg/dL) (75-99) mg/dL POC Glu Physicians Assistant ID Plasma Lactic Acid Mehul (0.7-2.0) mmol/L Calcium (8.4-10.2) mg/dL Magnesium (1.6-2.3) mg/dL Total Bilirubin (0.2-1.3) mg/dL AST (17-59) U/L ALT (4-49) U/L Alkaline Phosphatase (38-126) U/L Troponin I (0.000-0.034) ng/mL NT-Pro-B Natriuret Pep 1030 pg/mL Total Protein (6.3-8.2) g/dL Albumin (3.5-5.0) g/dL Coronavirus (PCR) Not Detected (Not Detectd) Critical Care Time Critical Care Time: Yes Total Critical Care Time: 35 Disposition Clinical Impression: COPD with acute exacerbation, Acute respiratory failure with hypoxia and hypercapnia Disposition: ADMITTED IP TO THIS HOSP Condition: Serious Is patient prescribed a controlled substance at d/c from ED?: No Referrals: Cayden Hennessy MD [Primary Care Provider] - 1-2 days Decision to Admit Reason: Admit from EC Decision Date: 12/17/20 Decision Time: 20:30
[2020-12-17 19:25] LABS: VBG PH 7.26 (7.31-7.41)
[2020-12-17 19:26] LABS: Anisocytosis Slight; Basophils # (A) 0.1 k/uL (0-0.2); Basophils % (A) 1 %; Eosinophils # (A) 0.1 k/uL (0-0.7); Eosinophils % (A) 1 %; HGB 18.6 gm/dL (13.0-17.5); Hypochromasia Moderate; Lymphocytes # (A) 1.6 k/uL (1.0-4.8); Lymphocytes % (A) 12 %; MCH 30.1 pg (25.0-35.0); MCHC 33.5 g/dL (31.0-37.0); MCV 90.1 fL (80.0-100.0); Mean Platelet Volume 8.1; Monocytes # (A) 0.7 k/uL (0-1.0); Monocytes % (A) 6 %; Neutrophils # (A) 10.2 k/uL (1.3-7.7); Neutrophils % (A) 79 %; Platelet Count 211 k/uL (150-450); RBC 6.17 m/uL (4.30-5.90); RDW 17.6 % (11.5-15.5); WBC 12.9 k/uL (3.8-10.6)
[2020-12-17 19:28] LABS: HCT 55.6 % (39.0-53.0)
[2020-12-17 19:40] LABS: INR 1.1 (<1.2); Partial Thromboplastin Time 25.8 sec (22.0-30.0); Prothrombin Time 11.8 sec (9.0-12.0)
[2020-12-17 19:43] LABS: ALT 6 U/L (4-49); AST 24 U/L (17-59); African American GFR (CKD) >90 (>60 ml/min/1.73 sqM); Albumin 3.7 g/dL (3.5-5.0); Alkaline Phosphatase 77 U/L (38-126); Anion Gap 9 mmol/L; Blood Urea Nitrogen 11 mg/dL (9-20); Calcium 8.6 mg/dL (8.4-10.2); Carbon Dioxide 28 mmol/L (22-30); Chloride 101 mmol/L (98-107); Glucose 128 mg/dL (74-99); Magnesium 1.7 mg/dL (1.6-2.3); Non-African American GFR(CKD) >90 (>60 ml/min/1.73 sqM); Potassium 5.1 mmol/L (3.5-5.1); Sodium 138 mmol/L (137-145); Total Bilirubin 0.6 mg/dL (0.2-1.3)
--- NOTE | 2020-12-17 19:48 | XR ---
EXAMINATION TYPE: XR chest 1V portable DATE OF EXAM: 12/17/2020 COMPARISON: 12/21/2019 HISTORY: Fever TECHNIQUE: Single view FINDINGS: There is no heart failure nor confluent pneumonic infiltrate. Costophrenic angles are clear . There are chest leads. Heart size is normal. Bony thorax is intact. IMPRESSION: No active cardiopulmonary disease. Normal heart. No change.
[2020-12-17] MEDS ORDERED: IPRATROPIUM-ALBUTEROL 3 ML NEB INHALATION PRN (20:09)
[2020-12-17] MEDS ORDERED: AZITHROMYCIN 500 MG in SODIUM CHLORIDE 0.9% 250 ML IVPB STA (20:10)
[2020-12-17] MEDS ORDERED: cefTRIAXone IN SWFI 1,000 MG/10 ML SYRINGE IVP STA (20:10)
--- NOTE | 2020-12-17 20:12 | US ---
EXAMINATION TYPE: US venous doppler duplex LE RT DATE OF EXAM: 12/17/2020 8:00 PM COMPARISON: NONE CLINICAL HISTORY: DVT?. swelling in right foot, h/o grafting in right leg, and GSV stripped SIDE PERFORMED: Right TECHNIQUE: The lower extremity deep venous system is examined utilizing real time linear array sonog ca with graded compression, doppler sonography and color-flow sonography. VESSELS IMAGED: Common Femoral Vein Deep Femoral Vein Greater Saphenous Vein * Femoral Vein Popliteal Vein Small Saphenous Vein * Proximal Calf Veins (* superficial vessels) Right Leg: Negative for DVT IMPRESSION: No sign of deep vein thrombosis in the right leg.
[2020-12-17] MEDS ORDERED: TAMSULOSIN 0.4 MG CAP.ER.24H PO SCH (22:45)
[2020-12-17] MEDS ORDERED: DONEPEZIL 10 MG TAB PO SCH (22:45)
[2020-12-17] MEDS ORDERED: ATORVASTATIN 10 MG TAB PO SCH (22:45)
[2020-12-17] MEDS ORDERED: EZETIMIBE 10 MG TAB PO SCH (22:45)
[2020-12-17] MEDS: FAMOTIDINE 20 MG TAB PO SCH (23:08)
[2020-12-17] MEDS: PREGABALIN 75 MG CAP PO SCH (23:08)
[2020-12-17] MEDS: levETIRAcetam 500 MG TAB PO SCH (23:08)
[2020-12-17] MEDS: metFORMIN 500 MG TAB PO SCH (23:08)
[2020-12-17] MEDS: methylPREDNISolone SOD SUCCI 125 MG/2 ML VIAL IV SCH (23:19)
[2020-12-18] MEDS: methylPREDNISolone SOD SUCCI 125 MG/2 ML VIAL IV SCH ×3 (06:32→18:10)
[2020-12-18] MEDS: levETIRAcetam 500 MG TAB PO SCH (08:47)
[2020-12-18] MEDS: metFORMIN 500 MG TAB PO SCH ×2 (08:48→16:50)
[2020-12-18] MEDS: PREGABALIN 75 MG CAP PO SCH (08:48)
[2020-12-18] MEDS ORDERED: SUBOXONE SUBLINGUAL SCH ×2 (09:00→21:00)
[2020-12-18] MEDS: IPRATROPIUM-ALBUTEROL 3 ML NEB INHALATION SCH ×4 (09:11→15:35)
[2020-12-18] MEDS ORDERED: AZITHROMYCIN 500 MG TAB PO SCH (09:30)
[2020-12-18] MEDS: FAMOTIDINE 20 MG TAB PO SCH (09:49)
--- NOTE | 2020-12-18 10:13 | P.HPIM ---
History of Present Illness H&P Date: 12/18/20 Chief Complaint: SOB This is a 60 y/o male well known to me fro health systeme office. He has a h/o COPD, tobacooism, OUD- on suboxone,seizure disorder, DM2, HTN, hyperlipidemia, PAD in legs and early dementia. He came into the ER with Increased SOB for the past week. He required BIPAP in er and was forund to be in Hypercapnic, hypoxic respiatory failure. He is on the floor now feeeling better with nasal cannula O2@ at 4l/m. His son is at bedside. He is very anxious to get his suboxone. We discussed it was not formulary and he will need to get it from home. He was given a 30 day supply at his last office visit. Curently he denies any chest pain, nausea, vomitting. He has SOB with any exertion. Review of Systems All systems: negative Past Medical History Past Medical History: Asthma, Coronary Artery Disease (CAD), COPD, Diabetes Mellitus, GERD/Reflux, Hyperlipidemia, Hypertension, Musculoskeletal Disorder, Seizure Disorder, Vascular Disorder Additional Past Medical History / Comment(s): Hx bilat gout in feet; hx fx ribs, chronic back pain. Seizure disorder had seizure on 07/2019 . Hx renal impairment R/T Motrin use, recovered. PAD recent stents for PAD both legs 11/28/19 History of Any Multi-Drug Resistant Organisms: None Reported Past Surgical History: Orthopedic Surgery, Tonsillectomy Additional Past Surgical History / Comment(s): left hand 5th finger tendon surgery. 08/11/19 Abd Aortogram, stents placed october 28 Past Anesthesia/Blood Transfusion Reactions: No Reported Reaction Past Psychological History: Anxiety, Depression Additional Psychological History / Comment(s): "seems worse since seizure ." Hx claustrophobia Smoking Status: Current every day smoker Past Alcohol Use History: Abuse Additional Past Alcohol Use History / Comment(s): quit smoking 07-22-, smoked since 1979, up to 2 ppd. He states he used to drink 6-7 liquor beverages a day, quit drinking 11/2018. Past Drug Use History: Marijuana Additional Drug Use History / Comment(s): Had hx pain Rx abuse. - Past Family History Father Family Medical History: No Reported History Additional Family Medical History / Comment(s): Father is alive and in his 70's Mother Family Medical History: Pneumonia Additional Family Medical History / Comment(s): Mother of pneumonia at the age of 52yrs. Medications and Allergies Home Medications Medication Instructions Recorded Confirmed Type Aspirin 81 mg PO DAILY chew 12/29/18 12/17/20 Rx levETIRAcetam [Keppra] 1,000 mg PO BID 08/09/19 12/17/20 History Buprenorphine HCl/Naloxone HCl 1 film SL DAILY 10/26/19 12/17/20 History [Suboxone 8 mg-2 mg Sl Film] amLODIPine [Norvasc] 10 mg PO DAILY 12/01/19 12/17/20 History Pregabalin [Lyrica] 75 mg PO BID 12/09/19 12/17/20 History Clopidogrel [Plavix] 75 mg PO DAILY 12/21/19 12/17/20 History Escitalopram [Lexapro] 10 mg PO DAILY 12/21/19 12/17/20 History Famotidine [Pepcid] 20 mg PO BID 12/21/19 12/17/20 History Omeprazole 40 mg PO DAILY 12/21/19 12/17/20 History metFORMIN HCL [metFORMIN HCL ER] 750 mg PO BID 12/21/19 12/17/20 History Albuterol Nebulized [Ventolin 2.5 mg INHALATION RT-QID PRN 12/17/20 12/17/20 History Nebulized] Albuterol Sulfate [Proventil Hfa] 2 puff INHALATION RT-QID PRN 12/17/20 12/17/20 History Allopurinol [Zyloprim] 100 mg PO DAILY 12/17/20 12/17/20 History Cholecalciferol [Vitamin D3 (25 25 mcg PO DAILY 12/17/20 12/17/20 History Mcg = 1000 Iu)] Donepezil HCl [Aricept] 10 mg PO HS 12/17/20 12/17/20 History Empagliflozin [Jardiance] 25 mg PO DAILY 12/17/20 12/17/20 History Ezetimibe [Zetia] 10 mg PO HS 12/17/20 12/17/20 History Linagliptin [Tradjenta] 5 mg PO DAILY 12/17/20 12/17/20 History Metoprolol Tartrate [Lopressor] 50 mg PO DAILY 12/17/20 12/17/20 History Nicotine 21Mg/24Hr Patch [Habitrol] 1 patch TRANSDERM DAILY PRN 12/17/20 12/17/20 History Rosuvastatin Calcium [Crestor] 5 mg PO HS 12/17/20 12/17/20 History Tamsulosin [Flomax] 0.4 mg PO HS 12/17/20 12/17/20 History Buprenorphine HCl/Naloxone HCl 1 film SUBLINGUAL HS 12/18/20 12/18/20 History [Suboxone 12 mg-3 mg Sl Film] Allergies Allergy/AdvReac Type Severity Reaction Status Date / Time No Known Allergies Allergy Verified 12/17/20 21:25 Physical Exam Vitals: Vital Signs Temp Pulse Pulse Resp BP BP Pulse Ox 12/18/20 08:00 98 F 60 16 94/55 96 12/18/20 04:00 98.5 F 57 L 16 105/63 93 L 12/18/20 00:00 98.0 F 67 19 103/62 98 12/17/20 21:15 63 18 126/87 96 12/17/20 20:51 98.2 F 64 17 99/57 93 L 12/17/20 20:45 61 18 101/64 92 L 12/17/20 20:30 62 20 102/61 84 L 12/17/20 20:00 62 22 103/60 94 L 12/17/20 19:45 64 22 109/62 99 12/17/20 19:39 22 12/17/20 19:33 64 12/17/20 19:30 63 20 119/73 96 12/17/20 19:26 58 L 12/17/20 19:15 66 22 119/67 98 12/17/20 19:05 63 22 119/73 60 L 12/17/20 18:55 98.7 F 75 24 105/65 75 L Intake and Output 12/17/20 12/18/20 12/18/20 22:59 06:59 14:59 Intake Total 120 Balance 120 Intake: Oral 120 Other: Voiding Method Urinal Urinal Weight 81.012 kg 72 kg - Constitutional General appearance: average body habitus - Neck Neck: no lymphadenopathy Thyroid: bilateral: normal size - Respiratory Respiratory: bilateral: diminished, wheezing - Cardiovascular Heart sounds: normal: S1, S2 - Gastrointestinal General gastrointestinal: normal bowel sounds, no splenomegaly - Neurologic Neurologic: CNII-XII intact - Psychiatric Psychiatric: A&O x's 3 Results CBC & Chem 7: 12/17/20 19:11 12/17/20 19:11 Labs: Abnormal Lab Results - Last 24 Hours (Table) 12/17/20 12/17/20 12/17/20 Range/Units 19:10 19:11 19:11 WBC 12.9 H (3.8-10.6) k/uL RBC 6.17 H (4.30-5.90) m/uL Hgb 18.6 H (13.0-17.5) gm/dL Hct 55.6 H (39.0-53.0) % RDW 17.6 H (11.5-15.5) % Neutrophils # 10.2 H (1.3-7.7) k/uL D-Dimer 0.64 H (<0.60) mg/L FEU VBG pH (7.31-7.41) VBG pCO2 (37-51) mmHg VBG HCO3 (24-28) mmol/L Glucose (74-99) mg/dL POC Glucose (mg/dL) 114 H (75-99) mg/dL Total Protein (6.3-8.2) g/dL 12/17/20 12/17/20 Range/Units 19:11 19:11 WBC (3.8-10.6) k/uL RBC (4.30-5.90) m/uL Hgb (13.0-17.5) gm/dL Hct (39.0-53.0) % RDW (11.5-15.5) % Neutrophils # (1.3-7.7) k/uL D-Dimer (<0.60) mg/L FEU VBG pH 7.26 L (7.31-7.41) VBG pCO2 71 H* (37-51) mmHg VBG HCO3 31 H (24-28) mmol/L Glucose 128 H (74-99) mg/dL POC Glucose (mg/dL) (75-99) mg/dL Total Protein 6.0 L (6.3-8.2) g/dL Chest x-ray: report reviewed Thrombosis Risk Factor Assmnt - Choose All That Apply Any of the Below Risk Factors Present?: Yes Each Factor Represents 1 point: Abnormal pulmonary function (COPD), Age 41-60 years, Obesity (BMI >25) Other Risk Factors: No Other congenital or acquired thrombophilia - If yes, enter type in comment: No Thrombosis Risk Factor Assessment Total Risk Factor Score: 3 Thrombosis Risk Factor Assessment Level: Moderate Risk Assessment and Plan (1) Acute respiratory failure with hypoxia and hypercapnia Current Visit: Yes Status: Acute Code(s): J96.01 - ACUTE RESPIRATORY FAILURE WITH HYPOXIA; J96.02 - ACUTE RESPIRATORY FAILURE WITH HYPERCAPNIA SNOMED Code(s): 249305206 (2) COPD with acute exacerbation Current Visit: Yes Status: Acute Code(s): J44.1 - CHRONIC OBSTRUCTIVE PULMONARY DISEASE W (ACUTE) EXACERBATION SNOMED Code(s): 204703123 (3) Opioid use disorder Current Visit: No Status: Acute Code(s): F11.99 - OPIOID USE, UNSP WITH UNSPECIFIED OPIOID-INDUCED DISORDER SNOMED Code(s): 5940851 (4) PAD (peripheral artery disease) Current Visit: No Status: Acute Code(s): I73.9 - PERIPHERAL VASCULAR DISEASE, UNSPECIFIED SNOMED Code(s): 967679314 (5) Smoker Current Visit: No Status: Acute Code(s): F17.200 - NICOTINE DEPENDENCE, UNSPECIFIED, UNCOMPLICATED SNOMED Code(s): 36244270 (6) Type 2 diabetes mellitus without complications Current Visit: No Status: Acute Code(s): E11.9 - TYPE 2 DIABETES MELLITUS WITHOUT COMPLICATIONS SNOMED Code(s): 156907499 Plan: continue antibiobioitics, steroids consult pulmonology repeat labs in am renew home meds monitor pedal edema reevaluate in the next 24 hours
[2020-12-18 11:40] LABS: Glucose,Whole Blood 245 mg/dL (75-99)
[2020-12-18] MEDS: INSULIN ASPART (NovoLOG) 100 UNIT/ML VIAL SQ SCH ×2 (13:01→18:10)
--- NOTE | 2020-12-18 13:09 | P.CNPUL ---
History of Present Illness Consult date: 12/18/20 Reason for consult: COPD History of present illness: 60-year-old male patient, a chronic smoker, who is coming into the hospital because of worsening shortness of breath, increased dyspnea, chest congestion, chest wheezing in addition to limitation excess capacity. The patient has been having difficulty breathing for almost a week and his condition progressively got worse to the point where he was unable to breathe and for that reason he ca me into the emergency. In the ED, the patient was found to be hypoxic and hypercapnic and he was briefly placed on a BiPAP and the patient ultimately improved and currently is off the BiPAP and oxygen at 4 L per minute nasal cannula. He is doing well. Is awake and alert and is following commands and answering questions appropriately. Denies having any chest pain. He does have some noted swelling in lower extremities bilaterally. He is known to have peripheral vascular disease and previous vascular intervention lower extremities bilaterally. Is also known to have CAD. His current white cell count is at 12.9 with a hemoglobin of 18.6. Rest of the blood work essentially within normal limits. Troponins are negative. ProBNP level is 1030. The chest x-ray showing no acute cardio pulmonary process. Doppler of the lower extremity was negative for DVT in the right lower extremity. Currently, the patient on DuoNeb approximately [id number]. The patient is on Rocephin and Zithromax which will be simplified to Zithromax 5 mg by mouth daily. He is also on IV Solu Medrol 60 mg every 6 hours. He has history of previous narcotic medication dependent and the patient has been taking Suboxone on a daily basis. No seizure activity. He is diabetic. Review of Systems Constitutional: Denies chills, Denies fever Eyes: denies as per HPI, denies blurred vision, denies bulging eye, denies decreased vision, denies diplopia, denies discharge, denies dry eye, denies irritation, denies itching, denies pain, denies photophobia, denies loss of peripheral vision, denies loss of vision, denies tunnel vision/blind spots Ears: deny: decreased hearing, ear discharge, earache, tinnitus Ears, nose, mouth and throat: Reports as per HPI Breasts: absent: as per HPI, gynecomastia Cardiovascular: Reports claudication, Reports decreased exercise tolerance, Reports dyspnea on exertion Respiratory: Reports cough, Reports cough with sputum, Reports dyspnea, Reports home oxygen, Reports wheezing Gastrointestinal: Reports as per HPI Genitourinary: Reports as per HPI Musculoskeletal: Reports as per HPI Musculoskeletal: absent: ankle pain, ankle stiffness, ankle swelling Integumentary: Reports as per HPI Neurological: Reports as per HPI Psychiatric: Reports as per HPI Endocrine: Reports as per HPI Hematologic/Lymphatic: Reports as per HPI Allergic/Immunologic: Reports as per HPI Past Medical History Past Medical History: Asthma, Coronary Artery Disease (CAD), COPD, Diabetes Mellitus, GERD/Reflux, Hyperlipidemia, Hypertension, Musculoskeletal Disorder, Seizure Disorder, Vascular Disorder Additional Past Medical History / Comment(s): Hx bilat gout in feet; hx fx ribs, chronic back pain. Seizure disorder had seizure on 07/2019 . Hx renal impairment R/T Motrin use, recovered. PAD recent stents for PAD both legs 11/28/19 History of Any Multi-Drug Resistant Organisms: None Reported Past Surgical History: Orthopedic Surgery, Tonsillectomy Additional Past Surgical History / Comment(s): left hand 5th finger tendon surgery. 08/11/19 Abd Aortogram, stents placed october 28 Past Anesthesia/Blood Transfusion Reactions: No Reported Reaction Past Psychological History: Anxiety, Depression Additional Psychological History / Comment(s): "seems worse since seizure 07/2019." Hx claustrophobia Smoking Status: Current every day smoker Past Alcohol Use History: Abuse Additional Past Alcohol Use History / Comment(s): quit smoking 20-20, smoked since 1979, up to 2 ppd. He states he used to drink 6-7 liquor beverages a day, quit drinking 11/2018. Past Drug Use History: Marijuana Additional Drug Use History / Comment(s): Had hx pain Rx abuse. - Past Family History Father Family Medical History: No Reported History Additional Family Medical History / Comment(s): Father is alive and in his 70's Mother Family Medical History: Pneumonia Additional Family Medical History / Comment(s): Mother of pneumonia at the age of 52yrs. Medications and Allergies Home Medications Medication Instructions Recorded Confirmed Type Aspirin 81 mg PO DAILY chew 12/29/18 12/17/20 Rx levETIRAcetam [Keppra] 1,000 mg PO BID 08/09/19 12/17/20 History Buprenorphine HCl/Naloxone HCl 1 film SL DAILY 10/26/19 12/17/20 History [Suboxone 8 mg-2 mg Sl Film] amLODIPine [Norvasc] 10 mg PO DAILY 12/01/19 12/17/20 History Pregabalin [Lyrica] 75 mg PO BID 12/09/19 12/17/20 History Clopidogrel [Plavix] 75 mg PO DAILY 12/21/19 12/17/20 History Escitalopram [Lexapro] 10 mg PO DAILY 12/21/19 12/17/20 History Famotidine [Pepcid] 20 mg PO BID 12/21/19 12/17/20 History Omeprazole 40 mg PO DAILY 12/21/19 12/17/20 History metFORMIN HCL [metFORMIN HCL ER] 750 mg PO BID 12/21/19 12/17/20 History Albuterol Nebulized [Ventolin 2.5 mg INHALATION RT-QID PRN 12/17/20 12/17/20 History Nebulized] Albuterol Sulfate [Proventil Hfa] 2 puff INHALATION RT-QID PRN 12/17/20 12/17/20 History Allopurinol [Zyloprim] 100 mg PO DAILY 12/17/20 12/17/20 History Cholecalciferol [Vitamin D3 (25 25 mcg PO DAILY 12/17/20 12/17/20 History Mcg = 1000 Iu)] Donepezil HCl [Aricept] 10 mg PO HS 12/17/20 12/17/20 History Empagliflozin [Jardiance] 25 mg PO DAILY 12/17/20 12/17/20 History Ezetimibe [Zetia] 10 mg PO HS 12/17/20 12/17/20 History Linagliptin [Tradjenta] 5 mg PO DAILY 12/17/20 12/17/20 History Metoprolol Tartrate [Lopressor] 50 mg PO DAILY 12/17/20 12/17/20 History Nicotine 21Mg/24Hr Patch [Habitrol] 1 patch TRANSDERM DAILY PRN 12/17/20 12/17/20 History Rosuvastatin Calcium [Crestor] 5 mg PO HS 12/17/20 12/17/20 History Tamsulosin [Flomax] 0.4 mg PO HS 12/17/20 12/17/20 History Buprenorphine HCl/Naloxone HCl 1 film SUBLINGUAL HS 08/16/21 08/16/21 History [Suboxone 12 mg-3 mg Sl Film] Allergies Allergy/AdvReac Type Severity Reaction Status Date / Time No Known Allergies Allergy Verified 12/17/20 21:25 Physical Exam Vitals: Vital Signs Temp Pulse Pulse Resp BP BP Pulse Ox 12/18/20 08:00 98 F 60 16 94/55 96 12/18/20 04:00 98.5 F 57 L 16 105/63 93 L 12/18/20 00:00 98.0 F 67 19 103/62 98 12/17/20 21:15 63 18 126/87 96 12/17/20 20:51 98.2 F 64 17 99/57 93 L 12/17/20 20:45 61 18 101/64 92 L 12/17/20 20:30 62 20 102/61 84 L 12/17/20 20:00 62 22 103/60 94 L 12/17/20 19:45 64 22 109/62 99 12/17/20 19:39 22 12/17/20 19:33 64 12/17/20 19:30 63 20 119/73 96 12/17/20 19:26 58 L 12/17/20 19:15 66 22 119/67 98 12/17/20 19:05 63 22 119/73 60 L 12/17/20 18:55 98.7 F 75 24 105/65 75 L Intake and Output 12/17/20 12/18/20 12/18/20 22:59 06:59 14:59 Intake Total 120 Balance 120 Intake: Oral 120 Other: Voiding Method Urinal Urinal Weight 81.012 kg 72 kg Gen. appearance, comfortable not in acute respiratory distress Head exam was generally normal. There was no scleral icterus or corneal arcus. Mucous membranes were moist. Neck was supple and without jugular venous distension, thyromegaly, or carotid bruits. Carotids were easily palpable bilaterally. There was no adenopathy. Lungs sounds are diminished and the patient is diffuse expiratory wheezes without the lung his bilaterally Cardiac exam revealed the PMI to be normally situated and sized. The rhythm was regular and no extrasystoles were noted during several minutes of auscultation. The first and second heart sounds were normal and physiologic splitting of the second heart sound was noted. There were no murmurs, rubs, clicks, or gallops. Abdominal exam revealed normal bowel sounds. The abdomen was soft, non-tender, and without masses, organomegaly, or appreciable enlargement of the abdominal aorta. Examination of the extremities revealed easily palpable radial, femoral and pedal pulses. There was no cyanosis, clubbing or edema. Examination of the skin revealed no evidence of significant rashes, suspicious appearing nevi or other concerning lesions. Neurologically, the patient is awake and alert and the patient does not have any focal neurological deficit. Cranial nerves are essentially intact. Results - Laboratory Findings CBC and BMP: 12/17/20 19:11 12/17/20 19:11 ABG WBC 12.9 k/uL (3.8-10.6) H 12/17/20 19:11 RBC 6.17 m/uL (4.30-5.90) H 12/17/20 19:11 Hgb 18.6 gm/dL (13.0-17.5) H 12/17/20 19:11 Hct 55.6 % (39.0-53.0) H 12/17/20 19:11 MCV 90.1 fL (80.0-100.0) 12/17/20 19:11 MCH 30.1 pg (25.0-35.0) 12/17/20 19:11 MCHC 33.5 g/dL (31.0-37.0) 12/17/20 19:11 RDW 17.6 % (11.5-15.5) H 12/17/20 19:11 Plt Count 211 k/uL (150-450) 12/17/20 19:11 MPV 8.1 12/17/20 19:11 Neutrophils % 79 % 12/17/20 19:11 Lymphocytes % 12 % 12/17/20 19:11 Monocytes % 6 % 12/17/20 19:11 Eosinophils % 1 % 12/17/20 19:11 Basophils % 1 % 12/17/20 19:11 Neutrophils # 10.2 k/uL (1.3-7.7) H 12/17/20 19:11 Lymphocytes # 1.6 k/uL (1.0-4.8) 12/17/20 19:11 Monocytes # 0.7 k/uL (0-1.0) 12/17/20 19:11 Eosinophils # 0.1 k/uL (0-0.7) 12/17/20 19:11 Basophils # 0.1 k/uL (0-0.2) 12/17/20 19:11 Hypochromasia Moderate 12/17/20 19:11 Anisocytosis Slight 12/17/20 19:11 PT 11.8 sec (9.0-12.0) 12/17/20 19:11 INR 1.1 (<1.2) 12/17/20 19:11 APTT 25.8 sec (22.0-30.0) 12/17/20 19:11 D-Dimer 0.64 mg/L FEU (<0.60) H 12/17/20 19:11 VBG pH 7.26 (7.31-7.41) L 12/17/20 19:11 VBG pCO2 71 mmHg (37-51) H* 12/17/20 19:11 VBG HCO3 31 mmol/L (24-28) H 12/17/20 19:11 Sodium 138 mmol/L (137-145) 12/17/20 19:11 Potassium 5.1 mmol/L (3.5-5.1) 12/17/20 19:11 Chloride 101 mmol/L (98-107) 12/17/20 19:11 Carbon Dioxide 28 mmol/L (22-30) 12/17/20 19:11 Anion Gap 9 mmol/L 12/17/20 19:11 BUN 11 mg/dL (9-20) 12/17/20 19:11 Creatinine 0.83 mg/dL (0.66-1.25) 12/17/20 19:11 Est GFR (CKD-EPI)AfAm >90 (>60 ml/min/1.73 sqM) 12/17/20 19:11 Est GFR (CKD-EPI)NonAf >90 (>60 ml/min/1.73 sqM) 12/17/20 19:11 Glucose 128 mg/dL (74-99) H 12/17/20 19:11 POC Glucose (mg/dL) 114 mg/dL (75-99) H 12/17/20 19:10 POC Glu [employer] ID Keke Vaughan 12/17/20 19:10 Plasma Lactic Acid Mehul 1.1 mmol/L (0.7-2.0) 12/17/20 19:11 Calcium 8.6 mg/dL (8.4-10.2) 12/17/20 19:11 Magnesium 1.7 mg/dL (1.6-2.3) 12/17/20 19:11 Total Bilirubin 0.6 mg/dL (0.2-1.3) 12/17/20 19:11 AST 24 U/L (17-59) 12/17/20 19:11 ALT 6 U/L (4-49) 12/17/20 19:11 Alkaline Phosphatase 77 U/L (38-126) 12/17/20 19:11 Troponin I <0.012 ng/mL (0.000-0.034) 12/17/20 19:11 NT-Pro-B Natriuret Pep 1030 pg/mL 12/17/20 19:11 Total Protein 6.0 g/dL (6.3-8.2) L 12/17/20 19:11 Albumin 3.7 g/dL (3.5-5.0) 12/17/20 19:11 Coronavirus (PCR) Not Detected (Not Detectd) 12/17/20 19:11 PT/INR, D-dimer PT 11.8 sec (9.0-12.0) 12/17/20 19:11 INR 1.1 (<1.2) 12/17/20 19:11 D-Dimer 0.64 mg/L FEU (<0.60) H 12/17/20 19:11 Abnormal lab findings: Abnormal Labs 12/17/20 12/17/20 12/17/20 19:10 19:11 19:11 WBC 12.9 H RBC 6.17 H Hgb 18.6 H Hct 55.6 H RDW 17.6 H Neutrophils # 10.2 H D-Dimer 0.64 H VBG pH VBG pCO2 VBG HCO3 Glucose POC Glucose (mg/dL) 114 H Total Protein 12/17/20 12/17/20 19:11 19:11 WBC RBC Hgb Hct RDW Neutrophils # D-Dimer VBG pH 7.26 L VBG pCO2 71 H* VBG HCO3 31 H Glucose 128 H POC Glucose (mg/dL) Total Protein 6.0 L - Diagnostic Findings Chest x-ray: image reviewed Assessment and Plan Plan: 1 acute COPD exacerbation with secondary shortness of breath. The patient has advanced COPD. No evidence of any pneumonia based on chest x-ray findings. He presented to us with acute hypoxic and hypercapnic respiratory failure, briefly optimize with BiPAP and currently is on 40s about 2 by nasal cannula. Chest x- rays clear 2 dyspnea secondary to above 3 coronary artery disease 4 peripheral vascular disease with previous vascular intervention involving the lower extremities 5 diabetes mellitus 6 hypertension 7 hyperlipidemia 8 smoker 9 seizure disorder 10 poor performance and functional status and emotional comorbidities 11 BPH 12 history of chronic narcotic abuse currently on Subaxone Plan Smoking cessation counseling was performed We'll apply nicotine patch DuoNeb nebulized treatments around the clock 4 times a day Arrange home O2 Arrange home nebulizer IV Solu Medrol 60 mg every 6 hours Change antibiotic coverage to Zithromax 500 mg by mouth daily Monitor blood sugars Sliding scale insulin coverage Outpatient follow-up with her PFT and further adjustment of the distal medications based on the progression.
[2020-12-18 14:14] VITALS: BP 112/62; TEMP 98.1
[2020-12-18] MEDS ORDERED: hydrOXYzine HCL 25 MG TAB PO PRN (15:49)
[2020-12-18 17:04] VITALS: PULSE 60; RESP 18
[2020-12-18 17:13] LABS: Glucose,Whole Blood 221 mg/dL (75-99)
[2020-12-18 20:29] LABS: Hemoglobin A1C 6.9 % (4.0-6.0)
--- NOTE | 2020-12-19 12:22 | P.DS ---
Providers Date of admission: 12/17/20 20:10 Attending physician: Leandro Maciel Consults: 12/17/20 20:09 Consult Physician Routine Consulting Provider: Deshawn Skinner Reason/Comments: COPD Do you want consulting provider notified?: Yes Primary care physician: Cayden Hennessy - Discharge Diagnosis(es) (1) Acute respiratory failure with hypoxia and hypercapnia Status: Acute (2) COPD with acute exacerbation Status: Acute (3) Opioid use disorder Status: Acute (4) PAD (peripheral artery disease) Status: Acute (5) Smoker Status: Acute (6) Type 2 diabetes mellitus without complications Status: Acute Hospital Course: This is a 60 y/o male well known to [facility]. He has a h/o COPD, tobacooism, OUD- on suboxone,seizure disorder, DM2, HTN, hyperlipidemia, PAD in legs and early dementia. He came into the ER with Increased SOB for the past week. He required BIPAP in er and was forund to be in Hypercapnic, hypoxic respi atory failure. He is on the floor now feeeling better with nasal cannula O2@ at 4l/m. His son is at bedside. He is very anxious to get his suboxone. We discussed it was not formulary and he will need to get it from home. He was given a 30 day supply at his last office visit. Curently he denies any chest pain, nausea, vomitting. He has SOB with any exertion. 12/19/2020: later in the evening of 12/18/2020 patient became anxious and was given hydroxyzien. He refused to calm down and left AMA~615pm Patient Condition at Discharge: Serious Plan - Discharge Summary Discharge Rx Participant: No New Discharge Prescriptions: Continue Aspirin 81 mg PO DAILY chew levETIRAcetam [Keppra] 1,000 mg PO BID Buprenorphine HCl/Naloxone HCl [Suboxone 8 mg-2 mg Sl Film] 1 film SL DAILY amLODIPine [Norvasc] 10 mg PO DAILY Pregabalin [Lyrica] 75 mg PO BID Escitalopram [Lexapro] 10 mg PO DAILY Omeprazole 40 mg PO DAILY metFORMIN HCL [Glucophage XR] 750 mg PO BID Famotidine [Pepcid] 20 mg PO BID Clopidogrel [Plavix] 75 mg PO DAILY Rosuvastatin Calcium [Crestor] 5 mg PO HS Donepezil HCl [Aricept] 10 mg PO HS Linagliptin [Tradjenta] 5 mg PO DAILY Albuterol Nebulized [Ventolin Nebulized] 2.5 mg INHALATION RT-QID PRN PRN Reason: Shortness Of Breath Nicotine 21Mg/24Hr Patch [Habitrol] 1 patch TRANSDERM DAILY PRN PRN Reason: cravings Tamsulosin [Flomax] 0.4 mg PO HS Ezetimibe [Zetia] 10 mg PO HS Metoprolol Tartrate [Lopressor] 50 mg PO DAILY Empagliflozin [Jardiance] 25 mg PO DAILY Cholecalciferol [Vitamin D3 (25 Mcg = 1000 Iu)] 25 mcg PO DAILY Allopurinol [Zyloprim] 100 mg PO DAILY Albuterol Sulfate [Proventil Hfa] 2 puff INHALATION RT-QID PRN PRN Reason: Shortness Of Breath Buprenorphine HCl/Naloxone HCl [Suboxone 12 mg-3 mg Sl Film] 1 film SUBLINGUAL HS Discharge Medication List Aspirin 81 mg PO DAILY chew 12/29/18 [Rx] levETIRAcetam [Keppra] 1,000 mg PO BID 08/09/19 [History] Buprenorphine HCl/Naloxone HCl [Suboxone 8 mg-2 mg Sl Film] 1 film SL DAILY 10/26/19 [History] amLODIPine [Norvasc] 10 mg PO DAILY 12/01/19 [History] Pregabalin [Lyrica] 75 mg PO BID 12/09/19 [History] Clopidogrel [Plavix] 75 mg PO DAILY 12/21/19 [History] Escitalopram [Lexapro] 10 mg PO DAILY 12/21/19 [History] Famotidine [Pepcid] 20 mg PO BID 12/21/19 [History] Omeprazole 40 mg PO DAILY 12/21/19 [History] metFORMIN HCL [Glucophage XR] 750 mg PO BID 12/21/19 [History] Albuterol Nebulized [Ventolin Nebulized] 2.5 mg INHALATION RT-QID PRN 12/17/20 [History] Albuterol Sulfate [Proventil Hfa] 2 puff INHALATION RT-QID PRN 12/17/20 [History] Allopurinol [Zyloprim] 100 mg PO DAILY 12/17/20 [History] Cholecalciferol [Vitamin D3 (25 Mcg = 1000 Iu)] 25 mcg PO DAILY 12/17/20 [History] Donepezil HCl [Aricept] 10 mg PO HS 12/17/20 [History] Empagliflozin [Jardiance] 25 mg PO DAILY 12/17/20 [History] Ezetimibe [Zetia] 10 mg PO HS 12/17/20 [History] Linagliptin [Tradjenta] 5 mg PO DAILY 12/17/20 [History] Metoprolol Tartrate [Lopressor] 50 mg PO DAILY 12/17/20 [History] Nicotine 21Mg/24Hr Patch [Habitrol] 1 patch TRANSDERM DAILY PRN 12/17/20 [History] Rosuvastatin Calcium [Crestor] 5 mg PO HS 12/17/20 [History] Tamsulosin [Flomax] 0.4 mg PO HS 12/17/20 [History] Buprenorphine HCl/Naloxone HCl [Suboxone 12 mg-3 mg Sl Film] 1 film SUBLINGUAL HS 12/18/20 [History] Follow up Appointment(s)/Referral(s): Cayden Hennessy MD [Primary Care Provider] - 1-2 days Lisa Molina MD [STAFF PHYSICIAN] - 1 Week Discharge Disposition: Left Against Medical Advice
== END 2020-12-18 18:16 | disposition left against medical advice (07) | DRG 189 ==
LOC: EC 18:53 → 3SCARD 20:10
PROVIDERS: ADMIT Family Medicine; ATTEND Family Medicine
PROC: 5A09357 Assistance with Respiratory Ventilation, Less than 24 Consecutive Hours, Continuous Positive Airway Pressure (ICD-10-PCS; principal; 2020-12-17)
DX: J96.01 Acute respiratory failure with hypoxia (principal); J44.1 Chronic obstructive pulmonary disease with (acute) exacerbation; E11.51 Type 2 diabetes mellitus with diabetic peripheral angiopathy without gangrene; F03.90 Unspecified dementia, unspecified severity, without behavioral disturbance, psychotic disturbance, mood disturbance, and anxiety; F11.10 Opioid abuse, uncomplicated; J96.02 Acute respiratory failure with hypercapnia; G40.909 Epilepsy, unspecified, not intractable, without status epilepticus; Z20.822 Contact with and (suspected) exposure to COVID-19; E78.5 Hyperlipidemia, unspecified; F32.9 Major depressive disorder, single episode, unspecified; I10 Essential (primary) hypertension; I25.10 Atherosclerotic heart disease of native coronary artery without angina pectoris; N40.0 Benign prostatic hyperplasia without lower urinary tract symptoms; G89.29 Other chronic pain; M54.9 Dorsalgia, unspecified; K21.9 Gastro-esophageal reflux disease without esophagitis; M10.9 Gout, unspecified; T40.2X5A Adverse effect of other opioids, initial encounter; F17.210 Nicotine dependence, cigarettes, uncomplicated; Z71.6 Tobacco abuse counseling; Z79.82 Long term (current) use of aspirin; Z79.02 Long term (current) use of antithrombotics/antiplatelets; Z79.84 Long term (current) use of oral hypoglycemic drugs; Z79.899 Other long term (current) drug therapy; Z87.81 Personal history of (healed) traumatic fracture; Z95.828 Presence of other vascular implants and grafts; Z90.89 Acquired absence of other organs; Z87.39 Personal history of other diseases of the musculoskeletal system and connective tissue; Z87.01 Personal history of pneumonia (recurrent); Z98.890 Other specified postprocedural states
CPT/HCPCS: 36415; 71045; 80053; 82803; 83036; 83605; 83735; 83880; 84484; 85025; 85379; 85610; 85730; 87040; 87635; 93005; 94640; 94660; 96365; 96366; 96375; 99291